=== PATIENT | female | born 1935 | race Caucasian/White ===

== ENCOUNTER → 2016-05-31 | Outpatient (CLI) | payer OTHER, BC ==
[~2016-05-31] MED LIST: AMOX875T PO; ASPI81TA28 PO; CALC600T9 PO; CETI10TA84 PO; CLON1TAB3 PO; HYDR25TA4 PO; LOSA100T65 PO; LOVA40TA4 PO; NXM/40 PO; OMEG10007 PO; ONDA4TAB10 SL; SYN112 PO
[2016-05-31 12:21] LABS: BASO ABS # 0.06 K/uL (0-0.2); COMPLETE YES; EOS % 1.7 %; HEMATOCRIT 41.2 % (37-47); IG% 0.2 %; LYMPH % 37.5 %; LYMPH ABS # 2.27 K/uL (1.2-3.4); MEAN CORPUSCULAR HEMOGLOBIN 30.3 pg (25-34); MEAN CORPUSCULAR HGB CONC 34.5 g/dl (32-36); MEAN PLATELET VOLUME 10.4 fL (7.4-10.4); MONO % 9.9 %; NEUT % 49.7 %; PLATELET COUNT 185 K/uL (130-400); RED BLOOD COUNT 4.68 M/uL (4.2-5.4); WHITE BLOOD COUNT 6.05 K/uL (4.8-10.8)
[2016-05-31 12:25] LABS: URINE APPEARANCE CLEAR (CLEAR); URINE BILIRUBIN NEG (NEG); URINE COLOR YELLOW; URINE NITRITE NEG (NEG); URINE SPECIFIC GRAVITY 1.005 (1.000-1.030); UROBILINOGEN NEG (NEG); ZZUR CULT IF INDIC CLEAN CATCH YES
[2016-05-31 12:49] LABS: MANUAL MICROSCOPIC REQUIRED? NO; REVIEW REQ? NO
[2016-05-31 12:51] LABS: ALT/SGPT 34 U/L (12-78); AST/SGOT 15 U/L (15-37); BLOOD UREA NITROGEN 15 mg/dl (7-18); BUN/CREATININE RATIO 16.4 (10-20); CALCIUM 9.4 mg/dl (8.5-10.1); CARBON DIOXIDE 32 mmol/L (21-32); CHLORIDE 106 mmol/L (98-107); CREATININE 0.93 mg/dl (0.60-1.20); GLUCOSE 92 mg/dl (70-99); POTASSIUM 4.6 mmol/L (3.5-5.1); SODIUM 143 mmol/L (136-145)
[2016-05-31 13:02] LABS: ALB/GLOB RATIO 1.2 (0.9-2); ALKALINE PHOSPHATASE 60 U/L (45-117); CHOLESTEROL 166 mg/dl (0-200); CHOLESTEROL/HDL RATIO 3.1; HDL CHOLESTEROL 54 mg/dl; LDL CHOLESTEROL CALCULATED 80 mg/dl; THYROID STIMULATING HORMONE 0.948 uIu/ml (0.300-4.500); TRIGLYCERIDES 162 mg/dl (0-150); VERY LOW DENSITY LIPOPROT CALC 32 mg/dl
== END | disposition home or self-care (01) ==
LOC: C.LAB 11:18
PROVIDERS: ATTEND Internal Medicine Geriatric Medicine
DX: I10 Essential (primary) hypertension (principal); E78.5 Hyperlipidemia, unspecified; N95.2 Postmenopausal atrophic vaginitis; M19.90 Unspecified osteoarthritis, unspecified site; E03.9 Hypothyroidism, unspecified; F41.8 Other specified anxiety disorders; R33.9 Retention of urine, unspecified; K76.0 Fatty (change of) liver, not elsewhere classified; R10.9 Unspecified abdominal pain

== ENCOUNTER → 2016-09-04 | Outpatient (CLI) | payer OTHER, BC ==
[~2016-09-04] MED LIST changes: -ONDA4TAB10 SL
[2016-09-04 17:36] LABS: BASO % 0.6 %; BASO ABS # 0.05 K/uL (0-0.2); COMPLETE YES; EOS % 1.4 %; HEMATOCRIT 42.5 % (37-47); IG% 0.1 %; LYMPH % 29.9 %; MEAN CELL VOLUME 88.5 fL (80-100); MEAN CORPUSCULAR HEMOGLOBIN 30.8 pg (25-34); MEAN CORPUSCULAR HGB CONC 34.8 g/dl (32-36); MEAN PLATELET VOLUME 10.2 fL (7.4-10.4); MONO % 9.1 %; NEUT % 58.9 %; PLATELET COUNT 190 K/uL (130-400); WHITE BLOOD COUNT 8.04 K/uL (4.8-10.8)
[2016-09-04 19:17] LABS: BLOOD UREA NITROGEN 15 mg/dl (7-18); BUN/CREATININE RATIO 18.4 (10-20); CALCIUM 9.7 mg/dl (8.5-10.1); CARBON DIOXIDE 30 mmol/L (21-32); CHLORIDE 105 mmol/L (98-107); CREATININE 0.82 mg/dl (0.60-1.20); GLUCOSE 79 mg/dl (70-99); POTASSIUM 4.3 mmol/L (3.5-5.1); SODIUM 142 mmol/L (136-145)
== END | disposition home or self-care (01) ==
LOC: C.LAB1850 16:29
PROVIDERS: ATTEND Physician Assistant
DX: R06.02 Shortness of breath (principal)

== ENCOUNTER → 2016-09-04 | Outpatient (CLI) | payer OTHER, BC ==
--- NOTE | 2016-09-04 16:04 | DIAGNOSTIC IMAGING REPORT ---
TWO VIEW CHEST CLINICAL HISTORY: Dyspnea on exertion. FINDINGS: PA and lateral chest radiographs are compared to study dated 12/07/2015. The cardiomediastinal silhouette is unremarkable. There is atherosclerotic calcification of the thoracic aorta. Chronic interstitial thickening is unchanged. The lungs and pleural spaces are clear. There is no pneumothorax. The skeletal structures are osteopenic. Degenerative changes noted throughout the thoracic spine. Cholecystectomy clips are identified in the right upper quadrant. IMPRESSION: No active disease in the chest. Electronically signed by: Meet Zhang M.D. 09/04/2016 4:02 PM Dictated Date/Time: 09/04/2016 4:01 PM
== END | disposition home or self-care (01) ==
LOC: C.RADBC 15:42
PROVIDERS: ATTEND Internal Medicine Geriatric Medicine
DX: R06.02 Shortness of breath (principal)

== ENCOUNTER → 2016-09-21 | Outpatient (CLI) | payer OTHER, BC ==
--- NOTE | 2016-09-21 14:50 | DIAGNOSTIC IMAGING REPORT ---
LEFT KNEE 1 OR 2 VIEWS ROUTINE, RIGHT KNEE 1 OR 2 VIEWS ROUTINE CLINICAL HISTORY: Fall, accidental. Bilateral knee pain. COMPARISON STUDY: None. FINDINGS: There is a right total knee arthroplasty. No fracture or dislocation within the right or left knee. Moderate osteoarthritis within the medial compartment of the left knee. Trace bilateral knee effusions. Also moderate left patellofemoral osteoarthritis. IMPRESSION: 1. No acute fracture or dislocation within the right or left knee. 2. Trace bilateral knee effusions. 3. Moderate left knee osteoarthritis. Electronically signed by: Roc Vizcarra M.D. 09/21/2016 2:49 PM Dictated Date/Time: 09/21/2016 2:47 PM
--- NOTE | 2016-09-21 15:05 | DIAGNOSTIC IMAGING REPORT ---
LUMBAR SPINE 5 VIEWS HISTORY: Pain PAIN COMPARISON: None. FINDINGS: There is no fracture. Grade 2 anterolisthesis of L3 on L4. Maximum anterolisthesis is made of 1 cm. Mild/moderate degenerative disc changes throughout. Findings of posterior laminectomy and fusion at L4-L5. IMPRESSION: Degenerative and postoperative change. No acute process. Grade 2 anterolisthesis of L3 on L4 Electronically signed by: Jeffy Bernal M.D. 09/21/2016 3:03 PM Dictated Date/Time: 09/21/2016 2:45 PM
--- NOTE | 2016-09-25 07:48 | CODING QUERY NO DIAGNOSIS ---
TREATMENT RENDERED WITHOUT A DIAGNOSIS To promote full compliance with coding requirements relating to patient care, physician participation is requested in all cases of remote medical coder uncertainty. Please assist us with providing a diagnosis/symptom for the test(s) below: A diagnosis/symptom was not documented on your Order. A valid diagnosis/symptom is required to bill all insurances. Please remember that we are unable to code a diagnosis of rule out, probable, possible, questionable, or suspected. Tests that require a diagnosis: * L-SPINE MIN 4 VIEWS DIAGNOSIS: * KNEE 1 OR 2 VIEWS DIAGNOSIS: Provider Signature: Date: Thank you Viridiana Degroot [employer] Information Management Once completed, please kindly fax back to [phone] For questions please call [phone]
== END | disposition home or self-care (01) ==
LOC: C.RADBC 14:07
PROVIDERS: ATTEND Physician Assistant Medical
DX: M53.86 Other specified dorsopathies, lumbar region (principal); M17.12 Unilateral primary osteoarthritis, left knee; T14.8 Other injury of unspecified body region; W19.XXXA Unspecified fall, initial encounter

== ENCOUNTER → 2016-10-13 | Outpatient (CLI) | payer OTHER, BC ==
--- NOTE | 2016-10-13 12:45 | DIAGNOSTIC IMAGING REPORT ---
CT OF THE CHEST WITHOUT IV CONTRAST CLINICAL HISTORY: Multiple pulmonary nodules. COMPARISON STUDY: Chest radiograph September 04, 2016. CT DOSE: 729.46 mGycm TECHNIQUE: Axial images of the chest were obtained without IV contrast. Images were reviewed in the axial, sagittal, and coronal planes. IV contrast was not administered for this examination. FINDINGS: No enlarged axillary, mediastinal or hilar lymph nodes are present. The size of the heart is normal. There is no pneumothorax or pleural effusion. Central airways are patent. No consolidation to suggest pneumonia. A few tiny subpleural nodules within the lower lungs are unchanged since abdominal CT of April 22, 2013. These are benign. Several calcified nodules are benign. A few noncalcified nodules are noted, including a 6 mm left upper lobe nodule shown on image 50 of 322 and a 5 mm right middle lobe nodule shown image 117 of 322. The bony thorax is unremarkable. A cyst arising from the upper pole of the left kidney is unchanged. The gallbladder is surgically absent. IMPRESSION: 1. A few noncalcified pulmonary nodules measuring up to 6 mm. These are likely benign but a follow-up chest CT in 6 months to ensure stability is recommended. 2. No thoracic lymphadenopathy. 3. No acute intrathoracic findings. Electronically signed by: Gibson Vidales M.D. 10/13/2016 12:44 PM Dictated Date/Time: 10/13/2016 12:32 PM
== END | disposition home or self-care (01) ==
LOC: C.CTS 12:10
PROVIDERS: ATTEND Internal Medicine Geriatric Medicine
DX: R91.8 Other nonspecific abnormal finding of lung field (principal)

== ENCOUNTER 2017-01-16 15:44 | Inpatient (IN) | payer OTHER, BC ==
[~2017-01-16] VITALS: Ht 162.6 cm; Wt 109.2 kg
[~2017-01-16 15:44] MED LIST changes: -AMOX875T PO
[2017-01-16] MEDS ORDERED: SODIUM CHLORIDE 0.9% 1000ML 1,000 ML IV STA (16:45)
[2017-01-16] MEDS ORDERED: ONDANSETRON INJ 2 MG/ML 2 ML VIAL IV STA (16:45)
[2017-01-16 17:58] LABS: BASO % 0.3 %; BASO ABS # 0.03 K/uL (0-0.2); COMPLETE YES; EOS % 0.8 %; HEMATOCRIT 36.6 % (37-47); IG% 0.3 %; LYMPH ABS # 1.98 K/uL (1.2-3.4); MEAN CELL VOLUME 87.8 fL (80-100); MEAN CORPUSCULAR HEMOGLOBIN 30.5 pg (25-34); MEAN CORPUSCULAR HGB CONC 34.7 g/dl (32-36); MEAN PLATELET VOLUME 10.5 fL (7.4-10.4); NEUT % 71.6 %; PLATELET COUNT 159 K/uL (130-400); RED BLOOD COUNT 4.17 M/uL (4.2-5.4)
--- NOTE | 2017-01-16 18:03 | DIAGNOSTIC IMAGING REPORT ---
ABD/PELVIS NO IV OR ORAL CONT HISTORY: 81 years-old Female left sided pain acute left-sided abdominal pain. Initial exam. COMPARISON: CT abdomen and pelvis 04/22/2013. TECHNIQUE: Multiple axial CT images of the abdomen and pelvis were obtained without contrast. A dose lowering technique was used consistent with the principals of JANELL. FINDINGS: Lung bases are generally clear with the exception of a pleural-based 4 mm noncalcified nodular density of the basal right lower lobe seen on image 72, unchanged from 04/22/2013 compatible with benign etiology. The inferior cardiac chambers are unremarkable. There is diffuse fatty infiltration of the liver. Prior cholecystectomy. The spleen, pancreas and adrenal glands are within normal limits. Mildly complex cyst of the superior pole left kidney is seen with layering calcification noted dependently overall measuring up to 2.2 cm. Kidneys are otherwise within normal limits. Ureters and urinary bladder are unremarkable. Prior hysterectomy. Moderate atherosclerotic plaquing involves the abdominal aorta. There is no bulky retroperitoneal adenopathy identified. No focal dilation of small bowel. Extensive sigmoid colonic diverticulosis is noted. There is moderate wall thickening of the distal aspect descending colon with moderate surrounding inflammatory stranding surrounding inflamed diverticula. Several foci of extraluminal air noted medially within the adjacent mesentery compatible with microperforation as seen on image 265. No abscess formation identified at this time. The appendix is not identified. No secondary evidence of acute appendicitis. Soft tissues are unremarkable. Bones appear intact. Prior posterior decompression with interbody angel and screw fusion at L4-L5. There is 5 mm anterolisthesis of L3 on L4, likely on a degenerative basis. IMPRESSION: 1. Acute diverticulitis of the distal descending colon with microperforation. No associated abscess formation at this time. Extensive colonic diverticulosis is also noted throughout the sigmoid colon. 2. Fatty infiltration of the liver. 3. Cholecystectomy. 4. 4 mm noncalcified pulmonary nodule of the right lower lobe is unchanged dating back to at least 04/22/2013 compatible with benign etiology. The above report was generated using voice recognition software. It may contain grammatical, syntax or spelling errors. Electronically signed by: Edmundo Thomason M.D. 01/16/2017 6:02 PM Dictated Date/Time: 01/16/2017 5:54 PM
[2017-01-16 18:07] LABS: BUN/CREATININE RATIO 19.2 (10-20); CALCIUM 9.3 mg/dl (8.5-10.1); CREATININE 1.1 mg/dl (0.60-1.20); POTASSIUM 3.1 mmol/L (3.5-5.1)
[2017-01-16] MEDS ORDERED: AMPICILLIN/SULBACTAM SOD INJ 3,000 MG in SODIUM CHLORIDE 0.9% 100ML 100 ML IV ONE (18:15)
--- NOTE | 2017-01-16 18:28 | EMERGENCY ROOM VISIT NOTE ---
History Report prepared by Lalita: Harvey Ledbetter Under the Supervision of: Dr. Boris Rogers D.O. First contact with patient: 16:39 Chief Complaint: ABDOMINAL PAIN Stated Complaint: FEVER, DIARRHEA, LT SIDE PAIN Nursing Triage Summary: Pt states Sun in the middle of the night, developed a fever. Nausea yesterday. Diarrhea this morning. Left sided abd pain that started yesterday. Hx of diverticulitis. Denies urinary s/sx at present, hx of UTI's. History of Present Illness The patient is a 81 year old female who presents to the Emergency Room with complaints of persistent left sided abdominal pain beginning yesterday. She also complains of a resolved subjective fever and diarrhea. Her diarrhea began this morning. The patient was referred to the ED by her PCP. She denies any rashes, urinary symptoms, chest pain, or SOB. She has a history of diverticulitis, but states that her current pain feels different. The patient notes that she self catheterizes twice a day. Source of History: patient Onset: Yesterday Position: abdomen (left side) Timing: other (persistent) Associated Symptoms: + fevers (resolved, subjective), + diarrhea (this morning), No chest pain, No SOB, No urinary symptoms, No rash Review of Systems See HPI for pertinent positives & negatives. A total of 10 systems reviewed and were otherwise negative. Past Medical & Surgical Medical Problems: (1) GERD (gastroesophageal reflux disease) (2) HTN (hypertension) (3) Hyperlipemia (4) UTI (urinary tract infection) Surgical Problems: (1) H/O colonoscopy (2) H/O: hysterectomy Family History Cancer Gallbladder disease Hypertension Social History Smoking Status: Never Smoker Alcohol Use: none Drug Use: none Marital Status: Housing Status: lives alone Occupation Status: retired Current/Historical Medications Scheduled Aspirin (Aspirin Ec), 81 MG PO DAILY Calcium Carbonate-Vitamin D (Calcium + D), 1 TAB PO DAILY Esomeprazole Magnesium (Nexium), 40 MG PO DAILY Fish Oil ([place]-3), 1,000 MG PO DAILY Hydrochlorothiazide (Hctz), 25 MG PO DAILY Levothyroxine (Synthroid *), 0.112 MG PO DAILY Losartan Potassium (Cozaar), 1 TAB PO DAILY Lovastatin (Mevacor), 40 MG PO DAILY Scheduled PRN Cetirizine (Zyrtec), 10 MG PO DAILY PRN for PRN Clonazepam (Klonopin), 1 MG PO BID PRN for Anxiety Allergies Coded Allergies: Iodinated Diagnostic Agents (Verified Allergy, Severe, HIVES, 01/16/17) Ciprofloxacin (Verified Allergy, Unknown, SOB/RASH, 01/16/17) Niacin (Verified Allergy, Unknown, UNK, 01/16/17) Sulfa Antibiotics (Verified Allergy, Unknown, SOB/RASH, 01/16/17) Uncoded Allergies: IODINE CRYSTALS (Allergy, Unknown, UNKNOWN, 12/11/14) Physical Exam Vital Signs Date Time Temp Pulse Resp B/P (MAP) Pulse Ox O2 Delivery O2 Flow Rate FiO2 01/16/17 18:31 60 01/16/17 15:49 36.9 73 16 117/70 93 Room Air Physical Exam GENERAL: Patient is awake, alert, and in no acute distress. Patient is resting comfortably and showing no signs of anxiety EYES: The conjunctivae are clear. The pupils are round and reactive. EARS, NOSE, MOUTH AND THROAT: The nose is without any evidence of any deformity. Mucous membranes are moist tongue is midline NECK: The neck is nontender and supple. RESPIRATORY: Normal respiratory effort is noted there is no evidence of wheezing rhonchi or rales CARDIOVASCULAR: Regular rate and rhythm noted there no murmurs rubs or gallops normal S1 normal S2 GASTROINTESTINAL: The abdomen is soft. Bowel sounds are present in all quadrants. Abdomen is distended with significant tenderness in the LLQ. Guarding in the LLQ noted. BACK: No midline tenderness or or step-off noted range of motion in flexion extension as well as rotation no signs of muscle spasm noted MUSCULOSKELETAL/EXTREMITIES: There is no evidence of gross deformity full range of motion is noted in the hips and shoulders SKIN: There is no obvious evidence of any rash. There are no petechiae, pallor or cyanosis noted. NEUROLOGIC: Patient is awake alert and oriented x3. Medical Decision & Procedures ER Provider Diagnostic Interpretation: CT results as stated below per my review and radiologist interpretation. ABD/PELVIS NO IV OR ORAL CONT FINDINGS: Lung bases are generally clear with the exception of a pleural-based 4 mm noncalcified nodular density of the basal right lower lobe seen on image 72, unchanged from 04/22/2013 compatible with benign etiology. The inferior cardiac chambers are unremarkable. There is diffuse fatty infiltration of the liver. Prior cholecystectomy. The spleen, pancreas and adrenal glands are within normal limits. Mildly complex cyst of the superior pole left kidney is seen with layering calcification noted dependently overall measuring up to 2.2 cm. Kidneys are otherwise within normal limits. Ureters and urinary bladder are unremarkable. Prior hysterectomy. Moderate atherosclerotic plaquing involves the abdominal aorta. There is no bulky retroperitoneal adenopathy identified. No focal dilation of small bowel. Extensive sigmoid colonic diverticulosis is noted. There is moderate wall thickening of the distal aspect descending colon with moderate surrounding inflammatory stranding surrounding inflamed diverticula. Several foci of extraluminal air noted medially within the adjacent mesentery compatible with microperforation as seen on image 265. No abscess formation identified at this time. The appendix is not identified. No secondary evidence of acute appendicitis. Soft tissues are unremarkable. Bones appear intact. Prior posterior decompression with interbody angel and screw fusion at L4-L5. There is 5 mm anterolisthesis of L3 on L4, likely on a degenerative basis. IMPRESSION: 1. Acute diverticulitis of the distal descending colon with microperforation. No associated abscess formation at this time. Extensive colonic diverticulosis is also noted throughout the sigmoid colon. 2. Fatty infiltration of the liver. 3. Cholecystectomy. 4. 4 mm noncalcified pulmonary nodule of the right lower lobe is unchanged dating back to at least 04/22/2013 compatible with benign etiology. The above report was generated using voice recognition software. It may contain grammatical, syntax or spelling errors. Electronically signed by: Edmundo Thomason M.D. 01/16/2017 6:02 PM Laboratory Results Test 01/16/17 00:00 01/16/17 17:40 Urine Color YELLOW Urine Appearance CLEAR (CLEAR) Urine pH 6.0 (4.5-7.5) Urine Specific [place] 1.014 (1.000-1.030) Urine Protein NEG (NEG) Urine Glucose (UA) NEG (NEG) Urine Ketones NEG (NEG) Urine Occult Blood NEG (NEG) Urine Nitrite NEG (NEG) Urine Bilirubin NEG (NEG) Urine Urobilinogen NEG (NEG) Urine Leukocyte Esterase SMALL (NEG) Urine WBC (Auto) 5-10 /hpf (0-5) Urine RBC (Auto) 0-4 /hpf (0-4) Urine Hyaline Casts (Auto) 0 /lpf (0-5) Urine Epithelial Cells (Auto) 5-10 /lpf (0-5) Urine Bacteria (Auto) NEG (NEG) Immature Granulocyte % (Auto) 0.3 % White Blood Count 11.00 K/uL (4.8-10.8) Red Blood Count 4.17 M/uL (4.2-5.4) Hemoglobin 12.7 g/dL (12.0-16.0) Hematocrit 36.6 % (37-47) Mean Corpuscular Volume 87.8 fL (80-100) Mean Corpuscular Hemoglobin 30.5 pg (25-34) Mean Corpuscular Hemoglobin Concent 34.7 g/dl (32-36) Platelet Count 159 K/uL (130-400) Mean Platelet Volume 10.5 fL (7.4-10.4) Neutrophils (%) (Auto) 71.6 % Lymphocytes (%) (Auto) 18.0 % Monocytes (%) (Auto) 9.0 % Eosinophils (%) (Auto) 0.8 % Basophils (%) (Auto) 0.3 % Neutrophils # (Auto) 7.88 K/uL (1.4-6.5) Lymphocytes # (Auto) 1.98 K/uL (1.2-3.4) Monocytes # (Auto) 0.99 K/uL (0.11-0.59) Eosinophils # (Auto) 0.09 K/uL (0-0.5) Basophils # (Auto) 0.03 K/uL (0-0.2) Immature Granulocyte # (Auto) 0.03 K/uL (0.00-0.02) Prothrombin Time 11.4 SECONDS (9.0-12.0) Prothromb Time International Ratio 1.1 (0.9-1.1) Total Bilirubin 1.0 mg/dl (0.2-1) Direct Bilirubin 0.3 mg/dl (0-0.2) Aspartate Amino Transf (AST/SGOT) 16 U/L (15-37) Alanine Aminotransferase (ALT/SGPT) 25 U/L (12-78) Alkaline Phosphatase 61 U/L (45-117) Total Protein 6.6 gm/dl (6.4-8.2) Albumin 3.0 gm/dl (3.4-5.0) Lipase 98 U/L (73-393) Laboratory results per my review. Medications Administered Medications (Trade) Dose Ordered Sig/Jonathan Route Start Time Stop Time Status Last Admin Dose Admin Sodium Chloride 1,000 ml @ 999 mls/hr Q1H1M STAT IV 01/16/17 16:45 01/16/17 17:45 DC 01/16/17 17:37 999 MLS/HR Ondansetron HCl (Zofran Inj) 4 mg NOW STAT IV 01/16/17 16:45 01/16/17 16:46 DC 01/16/17 17:37 4 MG Ampicillin Sodium/ Sulbactam Sodium 3000 mg/Sodium Chloride 108 ml @ 200 mls/hr ONE ONCE IV 01/16/17 18:15 01/16/17 18:47 DC 01/16/17 18:15 200 MLS/HR Acetaminophen (Tylenol Tab) 650 mg Q4H PRN PO 01/16/17 19:00 02/15/17 18:59 01/17/17 01:31 650 MG ED Course 1641: The patient was evaluated in room C11B. A complete history and physical examination were performed. 1645: Ordered Zofran Inj 4 mg IV, NSS 1,000 ml @ 999 mls/hr IV. 1815: Ordered Ampicillin Sodium/Sulbactam Sodium 3000 mg/NSS 108 mL @ 200 mls/ hr IV. 1830: Upon reevaluation, the patient is resting comfortably. I discussed results and treatment plan with her. She verbalizes agreement and understanding. I spoke with Dr. Naqvi of the [facility]. The patient will be evaluated for further management and care. Medical Decision Differential diagnosis: Etiologies such as appendicitis, diverticulitis, PUD, biliary pathology, UTI, pancreatitis, obstruction, mesenteric ischemia, aortic pathology, infections, inflammatory bowel disease, renal colic, as well as others were entertained. Nursing notes reviewed. The patient is an 81-year-old female who presented to emergency department for an evaluation of left-sided abdominal pain. The patient reports a fever which was subjective as an outpatient. The patient was treated with IV fluids and IV antibiotic. I discussed the patient's laboratory and radiographic studies with her. On subsequent reevaluation she was feeling significantly improved. CT did reveal signs of diverticulitis with some microperforation. For this reason I discussed her case with the on-call [facility] hospitalist. They've agreed to evaluate patient in the emergency department for further management and disposition. Medication Reconcilliation Current Medication List: was personally reviewed by me Blood Pressure Screening Patient's blood pressure: Normal blood pressure Blood pressure disposition: Did not require urgent referral Consults Time Called: 1814 Consulting Physician: Dr. Naqvi -[facility] Returned Call: 1829 I discussed the patient's case with Dr. Naqvi. The patient will be evaluated for further management. Additional Consults: Time Called: 1829 Consulted Physician: Dr. Shi -General Surgery Returned Call: 1834 Additional Comments: I discussed the patient's case with Dr. Shi. He will consult on the patient. Impression Primary Impression: Diverticulitis of intestine with perforation Scribe Attestation The scribe's documentation has been prepared under my direction and personally reviewed by me in its entirety. I confirm that the note above accurately reflects all work, treatment, procedures, and medical decision making performed by me. Departure Information Dispostion Being Evaluated By Hospitalist Referrals No Doctor, Assigned (PCP) Patient Instructions My [facility] Health Problem Qualifiers Primary Impression: Diverticulitis of intestine with perforation Diverticulitis site: large intestine Diverticulitis bleeding: unspecified bleeding status Qualified Codes: K57.20 - Diverticulitis of large intestine with perforation and abscess without bleeding
[2017-01-16] MEDS ORDERED: ONDANSETRON INJ 2 MG/ML 2 ML VIAL IV PRN (19:00)
[2017-01-16] MEDS ORDERED: POLYETHYLENE (MIRALAX) 17 GM PACK PO PRN (19:00)
[2017-01-16] MEDS ORDERED: ALUMINUM/MAGNESIUM/SIMETH (MAALOX MAX) 30 ML UDC PO PRN (19:00)
[2017-01-16] MEDS ORDERED: MAGNESIUM HYDROXIDE SUSP 30 ML UDC PO PRN (19:00)
[2017-01-16] MEDS ORDERED: CLONAZEPAM 1 MG TAB PO PRN (19:00)
[2017-01-16] MEDS ORDERED: CETIRIZINE HCL 10 MG TAB PO PRN (19:00)
[2017-01-16] MEDS ORDERED: MoRPHine SULFATE 2 MG/ML CARP IV PRN (19:15)
--- NOTE | 2017-01-16 19:17 | History and Physical ---
History & Physical Date & Time of Service: Jan 16, 2017 at 19:00 Chief Complaint: Fever, Diarrhea, Lt Side Pain Primary Care Physician: Sergei Patricia M.D. History of Present Illness Source: patient, family (at bedside ), clinic records, hospital records Patient is a pleasant 81 y/o female, with PMHx of HTN, hypothyroidism, hyperlipidemia, GERD, anxiety/depression, and diverticular disease, who presented to the ED because of worsening LLQ pain since 01/14. Per patient, she has been eating/drinking very little due to discomfort. Diarrhea started this AM. She denies similar symptoms in the past or h/o acute diverticulitis. Per records, her last colonoscopy was in [address] Ruiz- polyps and diverticular disease to sigmoid colon. +fever/chills. Patient denies any sweats , lightheadedness, dizziness, vision changes, CP, palpitations, edema, SOB, wheezing, cough, ,nausea, vomiting, urinary symptoms, melena, numbness/tingling , weakness, muscle/joint pain, anxiety/depression, active bleeding, or new skin discoloration/changes. Past Medical/Surgical History Medical Problems: HTN hypothyroidism hyperlipidemia GERD anxiety/depression diverticular disease of sigmoid colon Surgical Problems: colonoscopy hysterectomy back surgery R knee surgery Family History Cancer Gallbladder disease Hypertension Social History Smoking Status: Never Smoker Drug Use: none Marital Status: Housing status: lives with family Occupational Status: retired Immunizations History of Influenza Vaccine: Yes History of Tetanus Vaccine?: Yes History of Pneumococcal: Yes History of Hepatitis B Vaccine: No Multi-Drug Resistant Organisms History of MDRO: No Allergies Coded Allergies: Iodinated Diagnostic Agents (Verified Allergy, Severe, HIVES, 01/16/17) Sulfa Drugs (Verified Allergy, Intermediate, SOB/RASH, 01/16/17) Ciprofloxacin (Verified Allergy, Unknown, SOB/RASH, 01/16/17) Niacin (Verified Allergy, Unknown, UNK, 01/16/17) Uncoded Allergies: IODINE CRYSTALS (Allergy, Unknown, UNKNOWN, 12/11/14) Home Medications Scheduled Aspirin (Aspirin Ec), 81 MG PO DAILY Calcium Carbonate-Vitamin D (Calcium + D), 1 TAB PO DAILY Esomeprazole Magnesium (Nexium), 40 MG PO DAILY Fish Oil ([place]-3), 1,000 MG PO DAILY Hydrochlorothiazide (Hctz), 25 MG PO DAILY Levothyroxine (Synthroid *), 0.112 MG PO DAILY Losartan Potassium (Cozaar), 1 TAB PO DAILY Lovastatin (Mevacor), 40 MG PO DAILY Scheduled PRN Cetirizine (Zyrtec), 10 MG PO DAILY PRN for PRN Clonazepam (Klonopin), 1 MG PO BID PRN for Anxiety Physical Exam Vital Signs Date Time Temp Pulse Resp B/P (MAP) Pulse Ox O2 Delivery O2 Flow Rate FiO2 01/16/17 18:31 60 01/16/17 15:49 36.9 73 16 117/70 93 Room Air General Appearance: no apparent distress, + obese Head: normocephalic, atraumatic Eyes: normal inspection, PERRL ENT: hearing grossly normal Neck: supple Respiratory/Chest: lungs clear, no respiratory distress, no accessory muscle use Cardiovascular: regular rate, rhythm Abdomen/GI: normal bowel sounds, soft, + tenderness (Mild LLQ ttp ) Back: normal inspection Extremities/Musculoskelatal: no calf tenderness, no pedal edema Neurologic/Psych: alert, normal mood/affect, oriented x 3 Skin: normal color, warm/dry, no rash Diagnostics Laboratory Results Results Past 24 Hours Test 01/16/17 17:40 Range/Units White Blood Count 11.00 4.8-10.8 K/uL Red Blood Count 4.17 4.2-5.4 M/uL Hemoglobin 12.7 12.0-16.0 g/dL Hematocrit 36.6 37-47 % Mean Corpuscular Volume 87.8 80-100 fL Mean Corpuscular Hemoglobin 30.5 25-34 pg Mean Corpuscular Hemoglobin Concent 34.7 32-36 g/dl Platelet Count 159 130-400 K/uL Mean Platelet Volume 10.5 7.4-10.4 fL Neutrophils (%) (Auto) 71.6 % Lymphocytes (%) (Auto) 18.0 % Monocytes (%) (Auto) 9.0 % Eosinophils (%) (Auto) 0.8 % Basophils (%) (Auto) 0.3 % Neutrophils # (Auto) 7.88 1.4-6.5 K/uL Lymphocytes # (Auto) 1.98 1.2-3.4 K/uL Monocytes # (Auto) 0.99 0.11-0.59 K/uL Eosinophils # (Auto) 0.09 0-0.5 K/uL Basophils # (Auto) 0.03 0-0.2 K/uL RDW Standard Deviation 43.2 36.4-46.3 fL RDW Coefficient of Variation 13.5 11.5-14.5 % Immature Granulocyte % (Auto) 0.3 % Immature Granulocyte # (Auto) 0.03 0.00-0.02 K/uL Sodium Level 135 136-145 mmol/L Potassium Level 3.1 3.5-5.1 mmol/L Chloride Level 100 98-107 mmol/L Carbon Dioxide Level 31 21-32 mmol/L Anion Gap 4.0 3-11 mmol/L Blood Urea Nitrogen 21 7-18 mg/dl Creatinine 1.10 0.60-1.20 mg/dl Est Creatinine Clear Calc Drug Dose 46.8 ml/min Estimated GFR () 53.8 Estimated GFR (Non- 46.4 BUN/Creatinine Ratio 19.2 10-20 Random Glucose 87 70-99 mg/dl Calcium Level 9.3 8.5-10.1 mg/dl Total Bilirubin 1.0 0.2-1 mg/dl Direct Bilirubin 0.3 0-0.2 mg/dl Aspartate Amino Transf (AST/SGOT) 16 15-37 U/L Alanine Aminotransferase (ALT/SGPT) 25 12-78 U/L Alkaline Phosphatase 61 45-117 U/L Total Protein 6.6 6.4-8.2 gm/dl Albumin 3.0 3.4-5.0 gm/dl Lipase 98 73-393 U/L Diagnostic Radiology ABD/PELVIS NO IV OR ORAL CONT HISTORY: 81 years-old Female left sided pain acute left-sided abdominal pain. Initial exam. COMPARISON: CT abdomen and pelvis 04/22/2013. TECHNIQUE: Multiple axial CT images of the abdomen and pelvis were obtained without contrast. A dose lowering technique was used consistent with the principals of ALARA. FINDINGS: Lung bases are generally clear with the exception of a pleural-based 4 mm noncalcified nodular density of the basal right lower lobe seen on image 72, unchanged from 04/22/2013 compatible with benign etiology. The inferior cardiac chambers are unremarkable. There is diffuse fatty infiltration of the liver. Prior cholecystectomy. The spleen, pancreas and adrenal glands are within normal limits. Mildly complex cyst of the superior pole left kidney is seen with layering calcification noted dependently overall measuring up to 2.2 cm. Kidneys are otherwise within normal limits. Ureters and urinary bladder are unremarkable. Prior hysterectomy. Moderate atherosclerotic plaquing involves the abdominal aorta. There is no bulky retroperitoneal adenopathy identified. No focal dilation of small bowel. Extensive sigmoid colonic diverticulosis is noted. There is moderate wall thickening of the distal aspect descending colon with moderate surrounding inflammatory stranding surrounding inflamed diverticula. Several foci of extraluminal air noted medially within the adjacent mesentery compatible with microperforation as seen on image 265. No abscess formation identified at this time. The appendix is not identified. No secondary evidence of acute appendicitis. Soft tissues are unremarkable. Bones appear intact. Prior posterior decompression with interbody angel and screw fusion at L4-L5. There is 5 mm anterolisthesis of L3 on L4, likely on a degenerative basis. IMPRESSION: 1. Acute diverticulitis of the distal descending colon with microperforation. No associated abscess formation at this time. Extensive colonic diverticulosis is also noted throughout the sigmoid colon. 2. Fatty infiltration of the liver. 3. Cholecystectomy. 4. 4 mm noncalcified pulmonary nodule of the right lower lobe is unchanged dating back to at least 04/22/2013 compatible with benign etiology. The above report was generated using voice recognition software. It may contain grammatical, syntax or spelling errors. Electronically signed by: Edmundo Thomason M.D. 01/16/2017 6:02 PM Dictated Date/Time: 01/16/2017 5:54 PM The status of this report is Signed. Draft = Not yet reviewed or approved by Radiologist. Signed = Reviewed and approved by Radiologist. Impression Assessment and Plan Patient is a pleasant 81 y/o female, with PMHx of HTN, hypothyroidism, hyperlipidemia, GERD, anxiety/depression, and diverticular disease, who presented to the ED because of worsening LLQ pain since 01/14. Acute diverticulitis w/ microperforation: - Admit to med/surg - IV Zosyn - IV NSS + 20 mEq KCL @ 125 ml/hr - IV Morphine 1 mg q3 hrs PRN severe pain - NPO except ice chips/meds - Consult general surgery, appreciate recommendations Leukocytosis, secondary to diverticulitis: - IV antibiotics as above - Follow CBC Hypokalemia/hyponatremia, likely secondary to dehydration/diarrhea: - IVF as above - Hold HCTZ - Repeat PRP tomorrow AM HTN: - Continue Losartan 100 mg daily - Hold HCTZ 25 mg daily due to hypokalemia Hypothyroidism: Continue Synthroid 0.112 mcg daily Hyperlipidemia: Continue Lovastatin 40 mg daily and Fish Oil GERD: Protonix 40 mg daily- resume Nexium at discharge Anxiety/depression: Klonopin 1 mg BID PRN DVT prophylaxis: Heparin SQ BID Code Status: LEVEL I, FULL Dispo: From home, lives w/ family- no discharge needs anticipated Resident Physician Supervision Note: I was present with MURTAZA Burton during the history and exam. I discussed the case with the resident and agree with the findings and plan as documented in the note. Any exceptions or clarifications are listed here: 81 y/o F Hx hypothyroid, HTN, obese - presenting with abdominal pain - may have had a fever - subsequently diagnosed with diverticulitis and likely microperf OE AAO x 3 S1,2 R CTAB Minimally tender in lower quadrants No CCE P: Provided with IV Zosyn Fluid resuscitation and electrolyte replacement owing to mild hypoNa , hypoK on initial labs Cont home meds as tolerated - HCTZ held Documented By: Conrado Naqvi Level of Care Med/Surg Resuscitation Status FULL RESUSCITATION VTE Prophylaxis VTE Risk Assessment Done? Y/N: Yes Risk Level: Moderate Given or contraindicated: T.E.D. Stockings, SCD's
--- NOTE | 2017-01-16 19:22 | Surgery Consultation ---
Consultation Date of Consultation: Jan 16, 2017. Attending Physician: History of Present Illness pt started not feeling well sunday night. had fevers sunday with worsening pain today. pain is in LLQ. no prior hx of diverticulitis. does get routine colonoscopies for polyps. Past Medical/Surgical History Medical Problems: (1) Diverticulitis of intestine with perforation Status: Acute Family History Cancer Gallbladder disease Hypertension Social History Smoking Status: Never Smoker Drug Use: none Marital Status: Housing Status: lives alone Occupation Status: retired Allergies Coded Allergies: Iodinated Diagnostic Agents (Verified Allergy, Severe, HIVES, 01/16/17) Sulfa Drugs (Verified Allergy, Intermediate, SOB/RASH, 01/16/17) Ciprofloxacin (Verified Allergy, Unknown, SOB/RASH, 01/16/17) Niacin (Verified Allergy, Unknown, UNK, 01/16/17) Uncoded Allergies: IODINE CRYSTALS (Allergy, Unknown, UNKNOWN, 12/11/14) Home Medications Scheduled Aspirin (Aspirin Ec), 81 MG PO DAILY Calcium Carbonate-Vitamin D (Calcium + D), 1 TAB PO DAILY Esomeprazole Magnesium (Nexium), 40 MG PO DAILY Fish Oil ([place]-3), 1,000 MG PO DAILY Hydrochlorothiazide (Hctz), 25 MG PO DAILY Levothyroxine (Synthroid *), 0.112 MG PO DAILY Losartan Potassium (Cozaar), 1 TAB PO DAILY Lovastatin (Mevacor), 40 MG PO DAILY Scheduled PRN Cetirizine (Zyrtec), 10 MG PO DAILY PRN for PRN Clonazepam (Klonopin), 1 MG PO BID PRN for Anxiety Current Inpatient Medications Current Inpatient Medications Medications (Trade) Dose Ordered Sig/Jonathan Route Start Time Stop Time Status Last Admin Dose Admin Acetaminophen (Tylenol Tab) 650 mg Q4H PRN PO 01/16/17 19:00 02/15/17 18:59 Al Hydrox/Mg Hydrox/Simethicone (Maalox Max Susp) 15 ml Q4H PRN PO 01/16/17 19:00 02/15/17 18:59 Magnesium Hydroxide (Milk Of Magnesia Susp) 30 ml Q6H PRN PO 01/16/17 19:00 02/15/17 18:59 Polyethylene (Miralax Powder Packet) 17 gm DAILY PRN PO 01/16/17 19:00 02/15/17 18:59 Ondansetron HCl (Zofran Inj) 4 mg Q6H PRN IV 01/16/17 19:00 02/15/17 18:59 Piperacillin Sod/ Tazobactam Sod 3.375 gm/Dextrose 115 ml @ 28.75 mls/ hr Q12 IV 01/16/17 21:00 01/26/17 20:59 UNV Potassium Chloride/Sodium Chloride 1,000 ml @ 125 mls/hr Q8H IV 01/16/17 19:00 02/15/17 18:59 UNV Pantoprazole Sodium (Protonix Tab) 40 mg QAM PO 01/17/17 09:00 02/16/17 08:59 Aspirin (Ecotrin Tab) 81 mg DAILY PO 01/17/17 09:00 02/16/17 08:59 Cetirizine HCl (zyrTEC TAB) 10 mg DAILY PRN PO 01/16/17 19:00 02/15/17 18:59 Clonazepam (Klonopin Tab) 1 mg BID PRN PO 01/16/17 19:00 02/15/17 18:59 Fish Oil ([place]-3 (Purified Fish Oil) Cap) 1 gm DAILY PO 01/17/17 09:00 02/16/17 08:59 Levothyroxine Sodium (Synthroid Tab) 112 mcg DAILYBB PO 01/17/17 07:00 02/16/17 06:59 Losartan Potassium (coZAAR TAB) 100 mg DAILY PO 01/17/17 09:00 02/16/17 08:59 Lovastatin (Mevacor Tab) 40 mg DAILY PO 01/17/17 09:00 02/16/17 08:59 Morphine Sulfate (MoRPHine SULFATE INJ) 1 mg Q3H PRN IV 01/16/17 19:15 01/30/17 19:14 Heparin Sodium (Porcine) (Heparin Sq 5000 Unit/0.5ml) 5,000 unit Q12 SQ 01/16/17 21:00 02/15/17 20:59 UNV Piperacillin Sod/ Tazobactam Sod (Consult) 1 ea UD PRN N/A 01/16/17 19:30 02/15/17 19:29 Review of Systems Constitutional: + fever, + chills, + sweats Abdomen: + pain Physical Exam Date Time Temp Pulse Resp B/P (MAP) Pulse Ox O2 Delivery O2 Flow Rate FiO2 01/16/17 18:31 60 01/16/17 15:49 36.9 73 16 117/70 93 Room Air General Appearance: no apparent distress Head: normocephalic, atraumatic Eyes: EOMI ENT: hearing grossly normal Neck: no JVD Respiratory/Chest: no respiratory distress, no accessory muscle use Abdomen/GI: soft, + pertinent finding (+LLQ ttp. no peritoneal signs) Neurologic/Psych: alert, oriented x 3 Skin: normal color, warm/dry Laboratory Results Last 24 Hours Test 01/16/17 17:40 White Blood Count 11.00 K/uL Red Blood Count 4.17 M/uL Hemoglobin 12.7 g/dL Hematocrit 36.6 % Mean Corpuscular Volume 87.8 fL Mean Corpuscular Hemoglobin 30.5 pg Mean Corpuscular Hemoglobin Concent 34.7 g/dl Platelet Count 159 K/uL Mean Platelet Volume 10.5 fL Neutrophils (%) (Auto) 71.6 % Lymphocytes (%) (Auto) 18.0 % Monocytes (%) (Auto) 9.0 % Eosinophils (%) (Auto) 0.8 % Basophils (%) (Auto) 0.3 % Neutrophils # (Auto) 7.88 K/uL Lymphocytes # (Auto) 1.98 K/uL Monocytes # (Auto) 0.99 K/uL Eosinophils # (Auto) 0.09 K/uL Basophils # (Auto) 0.03 K/uL RDW Standard Deviation 43.2 fL RDW Coefficient of Variation 13.5 % Immature Granulocyte % (Auto) 0.3 % Immature Granulocyte # (Auto) 0.03 K/uL Sodium Level 135 mmol/L Potassium Level 3.1 mmol/L Chloride Level 100 mmol/L Carbon Dioxide Level 31 mmol/L Anion Gap 4.0 mmol/L Blood Urea Nitrogen 21 mg/dl Creatinine 1.10 mg/dl Est Creatinine Clear Calc Drug Dose 46.8 ml/min Estimated GFR () 53.8 Estimated GFR (Non- 46.4 BUN/Creatinine Ratio 19.2 Random Glucose 87 mg/dl Calcium Level 9.3 mg/dl Total Bilirubin 1.0 mg/dl Direct Bilirubin 0.3 mg/dl Aspartate Amino Transf (AST/SGOT) 16 U/L Alanine Aminotransferase (ALT/SGPT) 25 U/L Alkaline Phosphatase 61 U/L Total Protein 6.6 gm/dl Albumin 3.0 gm/dl Lipase 98 U/L Assessment & Plan acute diverticulitis with microperforation admit/NPO/IV antibiotics no emergent need at this time for surgery will follow along closely.
[2017-01-16] MEDS ORDERED: PIPERACILL/TAZOBAC CONSULT ACTIVE PRN (19:30)
[2017-01-16 20:30] VITALS: BP 141/83; PULSE 69; TEMP 36.7; O2SAT 93; Ht 162.6 cm; Wt 109.2 kg
[2017-01-16 20:35] VITALS: O2SAT 93
[2017-01-16] MEDS: ACETAMINOPHEN 325 MG TAB PO PRN (21:20)
[2017-01-16] MEDS: NSS + 20MEQ KCL 1000ML 1,000 ML IV SCH (21:21)
[2017-01-16 21:42] LABS: URINE APPEARANCE CLEAR (CLEAR); URINE BILIRUBIN NEG (NEG); URINE COLOR YELLOW; URINE NITRITE NEG (NEG); URINE SPECIFIC GRAVITY 1.014 (1.000-1.030); UROBILINOGEN NEG (NEG); ZZUR CULT IF INDIC CLEAN CATCH NO
[2017-01-16 21:54] LABS: MANUAL MICROSCOPIC REQUIRED? NO; REVIEW REQ? YES
[2017-01-16 21:55] LABS: INR 1.1 (0.9-1.1); PROTHROMBIN TIME (PATIENT) 11.4 SECONDS (9.0-12.0)
[2017-01-16] MEDS ORDERED: PIPERACILL/TAZOBAC IV 3.375 GM in DEXTROSE 5% 100ML 100 ML IV ONE (22:00)
[2017-01-16 23:01] VITALS: BP 116/69; PULSE 67; TEMP 36.7; O2SAT 92
[2017-01-16] MEDS: HEPARIN SOD 5000 UNIT/0.5 ML CARP SQ SCH (23:02)
[2017-01-17] MEDS: ACETAMINOPHEN 325 MG TAB PO PRN ×2 (01:31→11:30)
[2017-01-17] MEDS: PIPERACILL/TAZOBAC IV 3.375 GM in DEXTROSE 5% 100ML 100 ML IV SCH ×2 (03:35→11:36)
[2017-01-17] MEDS: NSS + 20MEQ KCL 1000ML 1,000 ML IV SCH ×3 (04:56→20:49)
[2017-01-17] MEDS: LEVOTHYROXINE 112 MCG TAB PO SCH (05:02)
[2017-01-17 05:50] LABS: MEAN CELL VOLUME 87.9 fL (80-100); MEAN CORPUSCULAR HEMOGLOBIN 30.5 pg (25-34); MEAN CORPUSCULAR HGB CONC 34.7 g/dl (32-36); MEAN PLATELET VOLUME 9.8 fL (7.4-10.4); PLATELET COUNT 151 K/uL (130-400); RED BLOOD COUNT 3.87 M/uL (4.2-5.4); WHITE BLOOD COUNT 7.63 K/uL (4.8-10.8)
[2017-01-17 06:29] LABS: BUN/CREATININE RATIO 16.1 (10-20); CALCIUM 8.5 mg/dl (8.5-10.1); CREATININE 0.97 mg/dl (0.60-1.20); POTASSIUM 3.6 mmol/L (3.5-5.1)
[2017-01-17 07:07] VITALS: BP 115/75; PULSE 60; TEMP 36.7; O2SAT 94
[2017-01-17] MEDS ORDERED: HYDROCHLOROTHIAZIDE 25 MG TAB PO SCH (09:00)
[2017-01-17] MEDS: LOSARTAN POTASSIUM 50 MG TAB PO SCH (09:20)
[2017-01-17] MEDS: ASPIRIN 81 MG ECTAB PO SCH (09:21)
[2017-01-17] MEDS: LOVASTATIN 20 MG TAB PO SCH (09:21)
[2017-01-17] MEDS: OMEGA-3 (PURIFIED FISH OIL) 1 GM CAP PO SCH (09:22)
[2017-01-17] MEDS: PANTOprazole SOD 40 MG TAB PO SCH (09:23)
[2017-01-17] MEDS: HEPARIN SOD 5000 UNIT/0.5 ML CARP SQ SCH ×2 (09:28→20:50)
--- NOTE | 2017-01-17 09:49 | Clinical Documentation Query ---
CLINICAL DOCUMENTATION QUERY QUERY 1 OF 2 81 y/o female, with PMHx of HTN, hypothyroidism, hyperlipidemia, GERD, anxiety/depression, and diverticular disease, who presented to the ED because of worsening LLQ pain since 01/14. In your clinical opinion is this patient being managed for: ( ) Acute peritonitis associated with diverticulitis ( X ) Not Agree ( ) Other explanation of clinical findings (Please Explain) ( ) Unable to determine (Please Define) ( ) Need to Discuss The medical record reflects the following clinical findings, treatment, and risk factors. Clinical Indicators: Sudden onset abdominal pain, abdominal distended with significant tenderness/guarding LLQ, patient stated fever/chills, diarrhea, CT scan "moderate surrounding inflammatory stranding surrounding inflamed diverticula", WBC 11.00 Treatment: IV zosyn and Unasyn, IV hydration, surgical consult Risk Factors: Age, obese, diverticulitis with perforation The symptoms of peritonitis depend on the virulence and extent of the infection. In a previously well patient, the sudden onset of abdominal pain is either localized if the process is confined by viscera or omentum, or generalized, if the entire peritoneal cavity is involved. In severe cases of generalized peritonitis, tenderness occurs over the entire abdomen with vomiting and a high fever. Peristalsis is absent. *Peritonitis with appendicitis: localized peritonitis (inflammation) is more common and presents as tenderness in the right lower quadrant; tenderness over the entire abdomen may indicate the extent of the inflammation. QUERY 2 OF 2 In your clinical opinion is this patient being managed for: ( X ) Chronic kidney disease, stage 3 ( ) Not Agree ( ) Other explanation of clinical findings (Please Explain) ( ) Unable to determine (Please Define) ( ) Need to Discuss The medical record reflects the following clinical findings, treatment, and risk factors. Clinical Indicators: GFR 46.4, 54.0, diverticulitis with perforation Treatment: IV hydration Risk Factors: Age, obese, hx diverticulitis, HTN, dehydration Please clarify and document your clinical opinion in the progress notes and discharge summary. Terms such as "probable", "suspected", "likely", "questionable", "possible", or "still to be ruled out" are acceptable. IF IN AGREEMENT, YOU MUST DOCUMENT ABOVE DIAGNOSTIC STATEMENT IN DAILY PROGRESS NOTES AND DISCHARGE SUMMARY. This document is not part of the patient's record. Thank You, Eboni Payan RN [phone]
--- NOTE | 2017-01-17 10:43 | Surgery Progress Note ---
Surgery Progress Note Date of Service Jan 17, 2017. Subjective feels much better this AM, no fevers or chills, bowels moving Objective Vital Signs: Date Time Temp Pulse Resp B/P (MAP) Pulse Ox O2 Delivery O2 Flow Rate FiO2 01/17/17 07:20 Room Air 01/17/17 07:07 36.7 60 16 115/75 (88) 94 Room Air 01/16/17 23:12 Room Air 01/16/17 23:01 36.7 67 16 116/69 (85) 92 Room Air 01/16/17 20:35 36.9 60 16 124/76 93 01/16/17 20:30 36.7 69 16 141/83 (102) 93 Room Air 01/16/17 20:30 36.7 69 18 141/83 Room Air 01/16/17 20:30 Room Air 01/16/17 18:31 60 01/16/17 15:49 36.9 73 16 117/70 93 Room Air Abdomen: non distended, soft, + tenderness (left lower nearing CVA) Laboratory Results: Results Past 24 Hours Test 01/16/17 17:40 01/17/17 05:17 Range/Units White Blood Count 11.00 7.63 4.8-10.8 K/uL Red Blood Count 4.17 3.87 4.2-5.4 M/uL Hemoglobin 12.7 11.8 12.0-16.0 g/dL Hematocrit 36.6 34.0 37-47 % Mean Corpuscular Volume 87.8 87.9 80-100 fL Mean Corpuscular Hemoglobin 30.5 30.5 25-34 pg Mean Corpuscular Hemoglobin Concent 34.7 34.7 32-36 g/dl Platelet Count 159 151 130-400 K/uL Mean Platelet Volume 10.5 9.8 7.4-10.4 fL Neutrophils (%) (Auto) 71.6 % Lymphocytes (%) (Auto) 18.0 % Monocytes (%) (Auto) 9.0 % Eosinophils (%) (Auto) 0.8 % Basophils (%) (Auto) 0.3 % Neutrophils # (Auto) 7.88 1.4-6.5 K/uL Lymphocytes # (Auto) 1.98 1.2-3.4 K/uL Monocytes # (Auto) 0.99 0.11-0.59 K/uL Eosinophils # (Auto) 0.09 0-0.5 K/uL Basophils # (Auto) 0.03 0-0.2 K/uL RDW Standard Deviation 43.2 43.7 36.4-46.3 fL RDW Coefficient of Variation 13.5 13.5 11.5-14.5 % Immature Granulocyte % (Auto) 0.3 % Immature Granulocyte # (Auto) 0.03 0.00-0.02 K/uL Prothrombin Time 11.4 9.0-12.0 SECONDS Prothromb Time International Ratio 1.1 0.9-1.1 Sodium Level 135 141 136-145 mmol/L Potassium Level 3.1 3.6 3.5-5.1 mmol/L Chloride Level 100 109 98-107 mmol/L Carbon Dioxide Level 31 28 21-32 mmol/L Anion Gap 4.0 4.0 3-11 mmol/L Blood Urea Nitrogen 21 16 7-18 mg/dl Creatinine 1.10 0.97 0.60-1.20 mg/dl Est Creatinine Clear Calc Drug Dose 46.8 53.1 ml/min Estimated GFR () 53.8 62.6 Estimated GFR (Non- 46.4 54.0 BUN/Creatinine Ratio 19.2 16.1 10-20 Random Glucose 87 101 70-99 mg/dl Calcium Level 9.3 8.5 8.5-10.1 mg/dl Total Bilirubin 1.0 0.2-1 mg/dl Direct Bilirubin 0.3 0-0.2 mg/dl Aspartate Amino Transf (AST/SGOT) 16 15-37 U/L Alanine Aminotransferase (ALT/SGPT) 25 12-78 U/L Alkaline Phosphatase 61 45-117 U/L Total Protein 6.6 6.4-8.2 gm/dl Albumin 3.0 3.4-5.0 gm/dl Lipase 98 73-393 U/L Assessment & Plan diverticulitis with microperf improving can have clears cont IV Zosyn
--- NOTE | 2017-01-17 13:08 | Progress Note ---
Subjective Date of Service: Jan 17, 2017. Subjective Pt evaluation today including: conversation w/ patient, physical exam, chart review, lab review, review of studies, review of inpatient medication list Resting comfortably in bed Denies any worsening pain, N/V/D Tolerating clears Problem List Medical Problems: (1) Diverticulitis of intestine with perforation Status: Acute Review of Systems Constitutional: No fever, No chills, No sweats, No weakness ENT: No hearing loss, No unusual epistaxis, No nasal symptoms, No sore throat Respiratory: No cough, No sputum, No wheezing, No shortness of breath, No dyspnea on exertion Cardiac: No chest pain, No orthopnea, No PND, No edema Abdomen: No pain, No nausea, No vomiting, No diarrhea, No constipation Musculoskeletal: No joint pain, No muscle pain, No swelling, No calf pain Female : No dysuria, No urinary frequency, No hematuria, No incontinence Neurologic: No memory loss, No paralysis, No weakness, No numbness/tingling Psychiatric: No depression symptoms, No anhedonism, No anxiety, No insomnia Endo: No fatigue, No excessive thirst Skin: No rash, No itch Objective Vital Signs Date Time Temp Pulse Resp B/P (MAP) Pulse Ox O2 Delivery O2 Flow Rate FiO2 01/17/17 07:20 Room Air 01/17/17 07:07 36.7 60 16 115/75 (88) 94 Room Air 01/16/17 23:12 Room Air 01/16/17 23:01 36.7 67 16 116/69 (85) 92 Room Air 01/16/17 20:35 36.9 60 16 124/76 93 01/16/17 20:30 36.7 69 16 141/83 (102) 93 Room Air 01/16/17 20:30 36.7 69 18 141/83 Room Air 01/16/17 20:30 Room Air 01/16/17 18:31 60 01/16/17 15:49 36.9 73 16 117/70 93 Room Air Physical Exam General Appearance: WD/WN, no apparent distress Eyes: normal inspection, PERRL, EOMI, sclerae normal ENT: normal ENT inspection, hearing grossly normal, TMs normal, pharynx normal Neck: supple, no adenopathy, thyroid normal, no JVD Respiratory/Chest: chest non-tender, lungs clear, normal breath sounds, no respiratory distress Cardiovascular: regular rate, rhythm, no edema, no gallop, no JVD Abdomen: normal bowel sounds, non tender, soft, no organomegaly Extremities: normal range of motion, non-tender, normal inspection, no pedal edema Neurologic/Psychiatric: no motor/sensory deficits, alert, normal mood/affect, oriented x 3 Laboratory Results Last 24 Hours Test 01/16/17 17:40 01/17/17 05:17 White Blood Count 11.00 K/uL 7.63 K/uL Red Blood Count 4.17 M/uL 3.87 M/uL Hemoglobin 12.7 g/dL 11.8 g/dL Hematocrit 36.6 % 34.0 % Mean Corpuscular Volume 87.8 fL 87.9 fL Mean Corpuscular Hemoglobin 30.5 pg 30.5 pg Mean Corpuscular Hemoglobin Concent 34.7 g/dl 34.7 g/dl Platelet Count 159 K/uL 151 K/uL Mean Platelet Volume 10.5 fL 9.8 fL Neutrophils (%) (Auto) 71.6 % Lymphocytes (%) (Auto) 18.0 % Monocytes (%) (Auto) 9.0 % Eosinophils (%) (Auto) 0.8 % Basophils (%) (Auto) 0.3 % Neutrophils # (Auto) 7.88 K/uL Lymphocytes # (Auto) 1.98 K/uL Monocytes # (Auto) 0.99 K/uL Eosinophils # (Auto) 0.09 K/uL Basophils # (Auto) 0.03 K/uL RDW Standard Deviation 43.2 fL 43.7 fL RDW Coefficient of Variation 13.5 % 13.5 % Immature Granulocyte % (Auto) 0.3 % Immature Granulocyte # (Auto) 0.03 K/uL Prothrombin Time 11.4 SECONDS Prothromb Time International Ratio 1.1 Sodium Level 135 mmol/L 141 mmol/L Potassium Level 3.1 mmol/L 3.6 mmol/L Chloride Level 100 mmol/L 109 mmol/L Carbon Dioxide Level 31 mmol/L 28 mmol/L Anion Gap 4.0 mmol/L 4.0 mmol/L Blood Urea Nitrogen 21 mg/dl 16 mg/dl Creatinine 1.10 mg/dl 0.97 mg/dl Est Creatinine Clear Calc Drug Dose 46.8 ml/min 53.1 ml/min Estimated GFR () 53.8 62.6 Estimated GFR (Non- 46.4 54.0 BUN/Creatinine Ratio 19.2 16.1 Random Glucose 87 mg/dl 101 mg/dl Calcium Level 9.3 mg/dl 8.5 mg/dl Total Bilirubin 1.0 mg/dl Direct Bilirubin 0.3 mg/dl Aspartate Amino Transf (AST/SGOT) 16 U/L Alanine Aminotransferase (ALT/SGPT) 25 U/L Alkaline Phosphatase 61 U/L Total Protein 6.6 gm/dl Albumin 3.0 gm/dl Lipase 98 U/L Assessment and Plan Patient is a pleasant 81 y/o female, with PMHx of HTN, hypothyroidism, hyperlipidemia, GERD, anxiety/depression, and diverticular disease, who presented to the ED because of worsening LLQ pain since 01/14. Acute diverticulitis w/ microperforation: - Admit to med/surg - Cont IV Zosyn, leukocytosis resolved - IV NSS + 20 mEq KCL @ 125 ml/hr - IV Morphine 1 mg q3 hrs PRN severe pain - Advanced to clears - Consult general surgery, appreciate recommendations, no surgical intervention YOEL resolved with hydration, likely prerenal Leukocytosis, secondary to diverticulitis, resolved - IV antibiotics as above Hypokalemia/hyponatremia, likely secondary to dehydration/diarrhea, resolved - IVF as above - Hold HCTZ - Repeat PRP tomorrow AM HTN: - Continue Losartan 100 mg daily - Hold HCTZ 25 mg daily due to hypokalemia Hypothyroidism: Continue Synthroid 0.112 mcg daily Hyperlipidemia: Continue Lovastatin 40 mg daily and Fish Oil GERD: Protonix 40 mg daily- resume Nexium at discharge Anxiety/depression: Klonopin 1 mg BID PRN DVT prophylaxis: Heparin SQ BID Code Status: LEVEL I FULL
[2017-01-17 15:00] VITALS: BP 126/86; PULSE 57; TEMP 36.5; O2SAT 95
[2017-01-17] MEDS: PIPERACILL/TAZOBAC IV 4.5 GM in DEXTROSE 5% 100ML IV SCH (19:38)
[2017-01-17 22:51] VITALS: BP 119/75; PULSE 59; TEMP 36.6; O2SAT 94
[2017-01-17] MEDS: LIDODERM (LIDOCAINE) PATCH 5% TD SCH (23:25)
[2017-01-18] MEDS: PIPERACILL/TAZOBAC IV 4.5 GM in DEXTROSE 5% 100ML IV SCH ×2 (04:12→12:04)
[2017-01-18] MEDS: NSS + 20MEQ KCL 1000ML 1,000 ML IV SCH ×2 (04:12→12:03)
[2017-01-18] MEDS: LEVOTHYROXINE 112 MCG TAB PO SCH (05:57)
[2017-01-18 06:19] LABS: HEMATOCRIT 33.6 % (37-47); MEAN CELL VOLUME 88.9 fL (80-100); MEAN CORPUSCULAR HEMOGLOBIN 30.2 pg (25-34); MEAN CORPUSCULAR HGB CONC 33.9 g/dl (32-36); MEAN PLATELET VOLUME 9.9 fL (7.4-10.4); PLATELET COUNT 164 K/uL (130-400); RED BLOOD COUNT 3.78 M/uL (4.2-5.4); WHITE BLOOD COUNT 6.45 K/uL (4.8-10.8)
[2017-01-18 06:56] LABS: BUN/CREATININE RATIO 11.9 (10-20); CALCIUM 8.6 mg/dl (8.5-10.1); CREATININE 0.8 mg/dl (0.60-1.20); POTASSIUM 3.9 mmol/L (3.5-5.1)
[2017-01-18 07:14] VITALS: BP 156/91; PULSE 61; TEMP 36.3; O2SAT 92
[2017-01-18] MEDS: LOSARTAN POTASSIUM 50 MG TAB PO SCH (08:44)
[2017-01-18] MEDS: PANTOprazole SOD 40 MG TAB PO SCH (08:44)
[2017-01-18] MEDS: LOVASTATIN 20 MG TAB PO SCH (08:44)
[2017-01-18] MEDS: OMEGA-3 (PURIFIED FISH OIL) 1 GM CAP PO SCH (08:45)
[2017-01-18] MEDS: ASPIRIN 81 MG ECTAB PO SCH (08:45)
[2017-01-18] MEDS: LIDODERM (LIDOCAINE) PATCH 5% TD SCH (08:48)
[2017-01-18] MEDS: HEPARIN SOD 5000 UNIT/0.5 ML CARP SQ SCH (08:48)
--- NOTE | 2017-01-18 09:41 | Surgery Progress Note ---
Surgery Progress Note Date of Service Jan 18, 2017. Subjective + feeling well, + bowel movement, + flatus, + pain controlled, No complaints, No nausea, No vomiting Sitting up in bed- states that she is feeling even better than yesterday. Objective Vital Signs: Date Time Temp Pulse Resp B/P (MAP) Pulse Ox O2 Delivery O2 Flow Rate FiO2 01/18/17 07:15 Room Air 01/17/17 23:33 Room Air 01/17/17 22:51 36.6 59 17 119/75 (90) 94 Room Air 01/17/17 15:39 Room Air 01/17/17 15:00 36.5 57 20 126/86 (99) 95 Room Air General Appearance: WD/WN, no apparent distress Abdomen: non tender, soft Laboratory Results: Results Past 24 Hours Test 01/18/17 05:55 Range/Units White Blood Count 6.45 4.8-10.8 K/uL Red Blood Count 3.78 4.2-5.4 M/uL Hemoglobin 11.4 12.0-16.0 g/dL Hematocrit 33.6 37-47 % Mean Corpuscular Volume 88.9 80-100 fL Mean Corpuscular Hemoglobin 30.2 25-34 pg Mean Corpuscular Hemoglobin Concent 33.9 32-36 g/dl RDW Standard Deviation 44.9 36.4-46.3 fL RDW Coefficient of Variation 13.7 11.5-14.5 % Platelet Count 164 130-400 K/uL Mean Platelet Volume 9.9 7.4-10.4 fL Sodium Level 144 136-145 mmol/L Potassium Level 3.9 3.5-5.1 mmol/L Chloride Level 113 98-107 mmol/L Carbon Dioxide Level 26 21-32 mmol/L Anion Gap 5.0 3-11 mmol/L Blood Urea Nitrogen 10 7-18 mg/dl Creatinine 0.80 0.60-1.20 mg/dl Est Creatinine Clear Calc Drug Dose 64.4 ml/min Estimated GFR () 79.0 Estimated GFR (Non- 68.2 BUN/Creatinine Ratio 11.9 10-20 Random Glucose 91 70-99 mg/dl Calcium Level 8.6 8.5-10.1 mg/dl Assessment & Plan Diverticulitis with Mircoperf patient continues to improve each day- tolerating liquids. feels like she is ready to go home will advance diet to full liquids.
[2017-01-18] MEDS ORDERED: AMOX875T PO (13:14)
--- NOTE | 2017-01-18 13:17 | Discharge Instructions ---
Discharge Instructions Date of Service Jan 18, 2017. Admission Reason for Admission: Diverticulitis Of Intestine With Perforation Discharge Discharge Diagnosis / Problem: Diverticulitis with microperforation Discharge Goals Goal(s): Decrease discomfort, Improve function, Increase independence, Improve disease control, Learn about illness, Diagnostic testing, Prevent Disease Progression Activity Recommendations Activity Limitations: resume your previous activity Exercise/Sports Limitations: as tolerated . Instructions / Follow-Up Instructions / Follow-Up Patient to be discharged home Please take antibiotic augmentin twice a day for 7 more day If worsening abdominal pain or fevers please report to ER Would benefit from low fiber diet Please follow up with Dr Patricia in 1-2 weeks Current Hospital Diet Patient's current hospital diet: Regular Diet Discharge Diet Recommended Diet: Low Fiber Diet Pending Studies Studies pending at discharge: no Medical Emergencies . Who to Call and When: Medical Emergencies: If at any time you feel your situation is an emergency, please call 911 immediately. . Non-Emergent Contact Non-Emergency issues call your: Primary Care Provider Call Non-Emergent contact if: you have a fever, your pain is worsening . . "Provider Documentation" section prepared by Edouard Schroeder. . VTE Core Measure Inpt VTE Proph given/why not?: Brody Crawley, SCD's
--- NOTE | 2017-01-18 13:22 | Discharge Summary ---
Discharge Summary Date of Service Jan 18, 2017. Discharge Summary Admission Date: Jan 16, 2017 at 19:00 Discharge Date: Jan 18, 2017 Discharge Disposition: Home Principal Diagnosis: Acute diverticulitis with microperforation Immunizations: Have You Had Influenza Vaccine: Yes History of Tetanus Vaccine?: Yes History of Pneumococcal: Yes History of Hepatitis B Vaccine: No Consultations: General surgery Medication Reconciliation New Medications: Amoxicillin & Pot Clavulanate (Augmentin 875-125 mg) 1 Tab Tab 875 MG PO BID for 7 Days, #14 TAB Continued Medications: Aspirin (Aspirin Ec) 81 Mg Tab 81 MG PO DAILY Calcium Carbonate-Vitamin D (Calcium + D) 1 Tab Tab 1 TAB PO DAILY Cetirizine (Zyrtec) 10 Mg Tab 10 MG PO DAILY PRN for PRN Clonazepam (Klonopin) 1 Mg Tab 1 MG PO BID PRN for Anxiety, TAB Esomeprazole Magnesium (Nexium) 40 Mg Capcr 40 MG PO DAILY, 0 Refills Fish Oil ([place]-3) 1 Ea Cap 1000 MG PO DAILY, CAP Hydrochlorothiazide (Hctz) 25 Mg Tab 25 MG PO DAILY, TAB Levothyroxine (Synthroid *) 0.112 Mg Tab 0.112 MG PO DAILY, 0 Refills Losartan Potassium (Cozaar) 100 Mg Tab 1 TAB PO DAILY Lovastatin (Mevacor) 40 Mg Tab 40 MG PO DAILY, 0 Refills Discharge Exam Review of Systems: Constitutional: No fever, No chills, No sweats, No weakness Eyes: No worsening of vision, No eye pain, No redness, No discharge Respiratory: No cough, No sputum, No wheezing, No shortness of breath Cardiovascular: No chest pain, No orthopnea, No PND, No edema Abdomen: No pain, No nausea, No vomiting, No diarrhea Musculoskeletal: No joint pain, No muscle pain, No swelling, No calf pain Genitourinary - Female: No dysuria, No urinary frequency, No urinary urgency , No urinary incontinence Neurologic: No memory loss, No paralysis, No weakness, No numbness/tingling Psychiatric: No depression symptoms, No anhedonism, No anxiety, No insomnia Endocrine: No fatigue, No excessive thirst Integumentary: No rash, No itch Hospital Course Patient is a pleasant 81 y/o female, with PMHx of HTN, hypothyroidism, hyperlipidemia, GERD, anxiety/depression, and diverticular disease, who presented to the ED because of worsening LLQ pain since 01/14. Acute diverticulitis w/ microperforation: - Admitted to med/surg - Started on IV Zosyn, leukocytosis resolved - IV NSS + 20 mEq KCL @ 125 ml/hr - IV Morphine 1 mg q3 hrs PRN severe pain - Consult general surgery, appreciate recommendations, no surgical intervention -TOlerated advancement of diet, no fevers, DC home on augmentin PO BID for 7 days YOEL resolved with hydration, likely prerenal Leukocytosis, secondary to diverticulitis, resolved Hypokalemia/hyponatremia, likely secondary to dehydration/diarrhea, resolved - IVF as above - Hold HCTZ - Repeat PRP tomorrow AM HTN: - Continue Losartan 100 mg daily - Hold HCTZ 25 mg daily due to hypokalemia Hypothyroidism: Continue Synthroid 0.112 mcg daily Hyperlipidemia: Continue Lovastatin 40 mg daily and Fish Oil GERD: Protonix 40 mg daily- resume Nexium at discharge Anxiety/depression: Klonopin 1 mg BID PRN DVT prophylaxis: Heparin SQ BID Code Status: LEVEL I FULL Total Time Spent: Greater than 30 minutes This includes examination of the patient, discharge planning, medication reconciliation, and communication with other providers. Discharge Instructions Please refer to the electronic Patient Visit Report (Discharge Instructions) for additional information. Additional Copies To Sergei Patricia M.D.
[2017-01-18 15:10] VITALS: BP 151/104; PULSE 62; TEMP 36.7; O2SAT 93
[2017-01-18 18:59] VITALS: BP 151/104; PULSE 62; TEMP 36.7; O2SAT 93
[2017-01-18 19:27] VITALS: BP 171/91; PULSE 75; TEMP 36.5; O2SAT 93
== END 2017-01-18 19:15 | disposition home or self-care (01) | DRG 392 ==
LOC: C.EDB 15:47 → C.MSN 19:00 → ENRESERV 19:30 → CANRESERV 19:30 → ENRESERV 20:08
PROVIDERS: ADMIT Internal Medicine; ATTEND Hospitalist
DX: K57.80 Diverticulitis of intestine, part unspecified, with perforation and abscess without bleeding (principal); N17.9 Acute kidney failure, unspecified; E87.1 Hypo-osmolality and hyponatremia; Z79.82 Long term (current) use of aspirin; I10 Essential (primary) hypertension; E03.9 Hypothyroidism, unspecified; E78.5 Hyperlipidemia, unspecified; K21.9 Gastro-esophageal reflux disease without esophagitis; F41.9 Anxiety disorder, unspecified; F32.9 Major depressive disorder, single episode, unspecified; D72.829 Elevated white blood cell count, unspecified; E87.6 Hypokalemia; Z82.49 Family history of ischemic heart disease and other diseases of the circulatory system

== ENCOUNTER → 2017-01-31 | Outpatient (CLI) | payer OTHER, BC ==
[2017-01-31 14:13] LABS: URINE APPEARANCE CLEAR (CLEAR); URINE BILIRUBIN NEG (NEG); URINE COLOR YELLOW; URINE EPITHELIAL CELL AUTO 20-30 /lpf (0-5); URINE NITRITE POS (NEG); URINE SPECIFIC GRAVITY 1.011 (1.000-1.030); UROBILINOGEN NEG (NEG)
[2017-01-31 14:23] LABS: MANUAL MICROSCOPIC REQUIRED? NO; REVIEW REQ? NO
== END | disposition home or self-care (01) ==
LOC: C.LABSPEC 13:32
PROVIDERS: ATTEND Physician Assistant
DX: R33.9 Retention of urine, unspecified (principal); N39.0 Urinary tract infection, site not specified

== ENCOUNTER → 2017-02-19 | Outpatient (CLI) | payer OTHER, BC ==
[2017-02-19 12:31] LABS: HEMATOCRIT 42.5 % (37-47); MEAN CELL VOLUME 86.7 fL (80-100); MEAN PLATELET VOLUME 10.1 fL (7.4-10.4); PLATELET COUNT 179 K/uL (130-400); WHITE BLOOD COUNT 9.63 K/uL (4.8-10.8)
[2017-02-19 12:43] LABS: MEAN CORPUSCULAR HGB CONC 34.6 g/dl (32-36)
== END | disposition home or self-care (01) ==
LOC: C.LAB 12:04
PROVIDERS: ATTEND Surgery
DX: K57.92 Diverticulitis of intestine, part unspecified, without perforation or abscess without bleeding (principal)

== ENCOUNTER → 2017-09-18 | Outpatient (CLI) | payer OTHER, BC ==
[2017-09-18 16:47] LABS: BASO % 1.3 %; BASO ABS # 0.08 K/uL (0-0.2); EOS % 1.9 %; EOS ABS # 0.12 K/uL (0-0.5); HEMATOCRIT 42.2 % (37-47); HEMOGLOBIN 14.7 g/dL (12.0-16.0); IG# 0.01 K/uL (0.00-0.02); LYMPH % 36.5 %; LYMPH ABS # 2.25 K/uL (1.2-3.4); MEAN CELL VOLUME 85.9 fL (80-100); MEAN CORPUSCULAR HEMOGLOBIN 29.9 pg (25-34); MEAN CORPUSCULAR HGB CONC 34.8 g/dl (32-36); MEAN PLATELET VOLUME 10.4 fL (7.4-10.4); MONO ABS # 0.43 K/uL (0.11-0.59); NEUT % 53.1 %; NEUT ABS # 3.27 K/uL (1.4-6.5); PLATELET COUNT 206 K/uL (130-400); RED CELL DISTRIBUTION WIDTH CV 13.5 % (11.5-14.5); RED CELL DISTRIBUTION WIDTH SD 42.3 fL (36.4-46.3); WHITE BLOOD COUNT 6.16 K/uL (4.8-10.8)
[2017-09-18 17:20] LABS: ALT/SGPT 30 U/L (12-78); AST/SGOT 18 U/L (15-37); BLOOD UREA NITROGEN 17 mg/dl (7-18); CALCIUM 9.3 mg/dl (8.5-10.1); CARBON DIOXIDE 30 mmol/L (21-32); CREATININE 0.85 mg/dl (0.60-1.20); GLUCOSE 87 mg/dl (70-99); POTASSIUM 3.7 mmol/L (3.5-5.1); SODIUM 140 mmol/L (136-145)
[2017-09-18 17:31] LABS: ALKALINE PHOSPHATASE 71 U/L (45-117); CHOLESTEROL 167 mg/dl (0-200); LDL CHOLESTEROL CALCULATED 87 mg/dl; TOTAL PROTEIN 7.6 gm/dl (6.4-8.2)
== END | disposition home or self-care (01) ==
LOC: C.LAB 15:15
PROVIDERS: ATTEND Internal Medicine Geriatric Medicine
DX: I10 Essential (primary) hypertension (principal); E78.5 Hyperlipidemia, unspecified; M19.90 Unspecified osteoarthritis, unspecified site; E03.9 Hypothyroidism, unspecified; F41.8 Other specified anxiety disorders; K76.0 Fatty (change of) liver, not elsewhere classified; Z68.41 Body mass index [BMI] 40.0-44.9, adult

== ENCOUNTER 2022-11-28 15:14 | Inpatient (IN) ==
[2022-11-28] MEDS ORDERED: SODIUM CHLORIDE 0.9% 500 ML IV STA (15:32)
[2022-11-28] MEDS ORDERED: ONDANSETRON INJ 2 MG/ML 2 ML VIAL IV STA (15:32)
--- NOTE | 2022-11-28 15:43 | Electrocardiogram Report ---
Test Reason : Blood Pressure : / mmHG Vent. Rate : 097 BPM Atrial Rate : 097 BPM P-R Int : 156 ms QRS Dur : 096 ms QT Int : 326 ms P-R-T Axes : 013 -20 113 degrees QTc Int : 414 ms Sinus rhythm with Premature supraventricular complexes Left ventricular hypertrophy with repolarization abnormality ( R in aVL ) Abnormal ECG When compared with ECG of 26-NOV-2015 01:31, Premature supraventricular complexes are now Present Questionable change in QRS duration Confirmed by Boris Llanes ([id number]) on 11/28/2022 3:43:02 PM Referred By: Confirmed By:Boris Llanes
[2022-11-28 16:01] LABS: Basophils # (auto) 0.12 K/uL (0-0.2); Basophils % (auto) 0.6 %; Eosinophils # (auto) 0.03 K/uL (0-0.50); Eosinophils % (auto) 0.2 %; Hematocrit (blood only) 42.2 % (37.0-47.0); Hemoglobin 14.9 g/dl (12.0-16.0); Immature Granulocytes # (auto) 0.14 K/uL (0.01-0.20); Immature Granulocytes % (auto) 0.8 %; Lymphocytes # (auto) 0.94 K/uL (1.2-3.4); Lymphocytes % (auto) 5.1 %; Mean Corpuscular Hemoglobin 30.5 pg (25.0-34.0); Mean Corpuscular Hgb Conc 35.3 g/dL (32.0-36.0); Mean Corpuscular Volume 86.5 fL (80.0-100.0); Mean Platelet Volume 10.2 fL (9.4-12.4); Monocytes # (auto) 1.22 K/uL (0.11-0.59); Monocytes % (auto) 6.6 %; Neutrophils # (auto) 16.02 K/uL (1.40-6.50); Neutrophils % (auto) 86.7 %; Platelet Count 210 K/uL (130-400); RDW Coefficient of Variation 13.2 % (11.5-14.5); RDW Standard Deviation 41.6 fL (36.4-46.3); Red Blood Count 4.88 M/uL (4.20-5.40); White Blood Count 18.47 K/ul (4.8-10.8)
--- NOTE | 2022-11-28 16:03 | Emergency Department Note ---
Impression & Plan Urinary tract infection, Heart murmur, Elevated troponin I level, Weakness, Edema, peripheral, Hypoxia ED Provider Note NAME: STERLING BARBA AGE: 87 SEX: F : 1935 ARRIVES VIA: Walk-In INFORMANT: Patient, ED PROVIDER(S): Boris Rogers DO CHIEF COMPLAINT: Weakness HPI: The patient is an 87-year-old female who presented to the emergency department for an evaluation of difficulty breathing. The patient has been noticing difficulty breathing and generalized weakness over the course of the last few weeks. She states he also notices lower extremity swelling and this occurred over the last few days. She was not seen by her family doctor recently for the symptoms. She denies having any chest pain. She does complain of shortness of breath with exertion. Family reports a fever but the patient denies this. She is also noticed nausea and vomiting. ROS: See above HPI for pertinent positives & negatives. A total of 10 systems reviewed and were otherwise negative. PAST MEDICAL HISTORY: See Below PAST SURGICAL HISTORY: See Below FAMILY HISTORY: See Below SOCIAL HISTORY: See Below HOME MEDICATIONS: See Below ALLERGIES: See Below VITALS: See Below PHYSICAL EXAMINATION: GENERAL: Patient is awake alert in no acute distress patient is resting comfortably and showing no signs of anxiety EYES: The conjunctivae are clear. The pupils are round and reactive. EARS, NOSE, MOUTH AND THROAT: The nose is without any evidence of any deformity. Mucous membranes are moist. Tongue is midline. NECK: The neck is nontender and supple. RESPIRATORY: Diminished breath sounds are noted throughout. There is no tachypnea or conversational dyspnea. CARDIOVASCULAR: Ectopy was noted to auscultation. Systolic murmur was suggested. GASTROINTESTINAL: The abdomen is soft. Abdomen is nontender. MUSCULOSKELETAL/EXTREMITIES: There is no evidence of gross deformity full range of motion is noted in the hips and shoulders. SKIN: The skin is warm and dry. Pedal edema was noted bilaterally. NEUROLOGIC: Patient is awake alert and oriented x3 MEDICAL DECISION MAKING: The patient is an 87-year-old female who presented to the emergency department with multiple complaints. The patient presented with family members. She was complaining of lower extremity swelling which have been ongoing. The patient was hypoxic on multiple occasions. She has an EKG which shows some changes compared to previous. She has a heart murmur which she states was not present previously. I discussed the patient's laboratory and radiographic studies with her. She was found to have an elevation in her white blood cell count. Further studies were obtained to find infectious source. She was treated with empiric antibiotics. I discussed the patient's condition with the on-call [facility] hospitalist. They have agreed to evaluate the patient in the emergency department for further management and disposition. Triage Nursing notes reviewed. Prior medical records reviewed Vital Signs: reviewed and remarkable for hypoxia Differential diagnosis: Reactive airway disease, pneumonia, pneumothorax, COPD, CHF, infections, cardiac ischemia, pulmonary embolism, musculoskeletal, gastrointestinal, as well as other pathologies. ER treatment provided: See below Diagnostics interpreted by me: ECG: EKG was obtained in the emergency department. My interpretation is sinus rhythm at 97 bpm. PVCs were noted. LVH was suggested by voltage criteria with incomplete left bundle branch block. This was compared to a tracing from November 26, 2015. Significant changes were noted. Cardiac Monitoring: An order was placed for continuous cardiac monitoring. The monitor shows a rate of 77 bpm with sinus rhythm. Laboratory studies: As stated above and show below. Imaging studies: See below. Radiographic imaging was reviewed by myself Consultation(s): I discussed this case with Dr. Browning who is on-call for the [facility]. 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 Chronic osteoarthritis Colitis Cyst of kidney, acquired Cyst of pancreas Depression with anxiety Diverticular disease Fatty liver GERD (gastroesophageal reflux disease) History of cholecystitis HTN (hypertension) Hyperlipemia Hypothyroidism Lower extremity edema Migraine Morbid obesity with BMI of 45.0-49.9, adult Obstructive sleep apnea cpap Self-catheterizes urinary bladder in the am and at night d/t ureters being cut during hysterectomy--pt states she can still void as well Surgical History H/O colonoscopy with polypectomy H/O: hysterectomy ONEIL BSO ~pt states she had the surgery done at 1974 @ [facility] – [place], pt states that "they accidentally cut my kidney tubes and I have to catherize myself every day twice a day since then" History of appendectomy History of bilateral cataract extraction History of detached retina repair right History of dilatation and curettage History of esophagogastroduodenoscopy (EGD) History of knee replacement procedure of right knee (~2006) History of lumbar spinal fusion History of sinus surgery History of tooth extraction all teeth Family History Son Colorectal cancer Hypertension Mother Ovarian cancer Diabetes Grandmother (Paternal) Hypertension Grandmother (Maternal) Heart disease Stroke Son Family hx colonic polyps Son Family hx colonic polyps Other No family history of adverse response to anesthesia Denies family history of Prostate cancer Myocardial infarction Breast cancer Social History Smoking Status: Never smoker Second Hand Exposure: No; Do You Dip or Chew Tobacco: No; Tobacco Cessation Education Requested by Patient: No Hx Alcohol Use: No Hx Substance Use: No Preferred Language: Marshallese Communication Ability: Effective Visual Impairment: No Limitations Hearing Ability: Normal Slot Manager Required: No Beliefs That Will Affect Care: None marital status: Current Living Situation: Spouse current occupational status: retired How many Children do You have: 5 Other Information That Helps Us Care for You: Yes Feels Safe at Home: Yes Safety Concerns: Feels Safe At This Time Childhood Exposure to Second-Hand Smoke: Yes caffeine: Yes Dental Care, Regularly: No Physical Activity Frequency: 1-2 Times per Week Seatbelt Use: always Sunscreen Use: Yes Assistive Devices: Walker Allergies Allergies Allergy/AdvReac Type Severity Reaction Status Date / Time atorvastatin Allergy Severe WHEEZING/RESP Verified 11/28/22 17:06 DIFFICULTY ciprofloxacin Allergy Severe SHORT OF Verified 11/28/22 17:06 BREATH/RASH amoxicillin Allergy Intermediate Hives Verified 11/28/22 17:06 Iodinated Contrast Media Allergy Intermediate HIVES Verified 11/28/22 17:06 iodine Allergy Intermediate Hives Verified 11/28/22 17:06 Sulfa (Sulfonamide Allergy Intermediate SHORT OF Verified 11/28/22 17:06 Antibiotics) BREATH/RASH escitalopram Allergy Unknown UNKNOWN Verified 11/28/22 17:06 PER [facility] MED LIST niacin Allergy Unknown UNKNOWN Verified 11/28/22 17:06 PER [facility] MED LIST lisinopril AdvReac Intermediate Gastrointestinal Verified 11/28/22 17:06 Upset Home Meds Home Medications Medication Instructions Recorded Confirmed ascorbic acid (vitamin C) 1,000 mg 1 g PO QAM 02/24/20 11/28/22 tablet (Vitamin C) aspirin 81 mg tablet,delayed 81 mg PO DAILY 11/28/22 11/28/22 release clonazepam 1 mg tablet 1 mg PO HS 11/28/22 11/28/22 cyanocobalamin (vitamin B-12) 250 250 mcg PO DAILY 11/28/22 11/28/22 mcg tablet (Vitamin B-12) escitalopram oxalate 10 mg tablet 10 mg PO DAILY 11/28/22 11/28/22 furosemide 20 mg tablet (Lasix) 20 mg PO BID 11/28/22 11/28/22 levothyroxine 112 mcg tablet 112 mcg PO DAILYBB 11/28/22 11/28/22 losartan 25 mg tablet 25 mg PO DAILY 11/28/22 11/28/22 meloxicam 7.5 mg tablet 7.5 mg PO QAM 11/28/22 11/28/22 omega 5-txi-tnl-fish oil 1,000 mg 1 cap PO QAM 11/28/22 11/28/22 (120 mg-180 mg) capsule (Fish Oil) oxybutynin chloride 5 mg 5 mg PO QAM 11/28/22 11/28/22 tablet,extended release 24 hr vitamin E 268 mg (400 unit) capsule 268 mg PO DAILY 11/28/22 11/28/22 Previous Rx's Medication Instructions Recorded CPAP Machine #1 ea 06/30/19 compr.stocking,knee,long,x-lrg #2 ea 05/10/20 Results & Data (ED) Vital Signs Vital Signs - 24 hr 11/28/22 15:18 11/28/22 15:51 11/28/22 15:55 Temperature 37.2 C Temperature Source Temporal Artery Scan Pulse Rate 95 H 94 H Pulse Rate [Apical] Pulse Rate from SpO2 Sensor Pulse Rhythm [Apical] Respiratory Rate 16 Respiratory Effort / Characteristics Non-Labored Spontaneous Respiratory Depth Normal Blood Pressure 132/98 Blood Pressure [Left Arm] Blood Pressure Mean 109 Blood Pressure Mean [Left Arm] Pulse Oximetry 93 87 L Oxygen Delivery Method Room Air Room Air Oxygen Flow Rate Sepsis Recent Fever Within 48 Hours No Sepsis New/Unexplained Change in Mental Status N/A Sepsis Action Taken by Nursing No Action Required Pulse Oximetry Post Tiitration 11/28/22 15:59 11/28/22 17:30 11/28/22 17:10 Temperature Temperature Source Pulse Rate 80 Pulse Rate [Apical] 79 Pulse Rate from SpO2 Sensor Pulse Rhythm [Apical] Regular Respiratory Rate 16 17 Respiratory Effort / Characteristics Non-Labored Respiratory Depth Normal Blood Pressure 163/70 H Blood Pressure [Left Arm] 174/73 H Blood Pressure Mean 101 Blood Pressure Mean [Left Arm] 106 Pulse Oximetry 96 94 Oxygen Delivery Method Nasal Cannula Nasal Cannula Room Air Oxygen Flow Rate 2 2 Sepsis Recent Fever Within 48 Hours Sepsis New/Unexplained Change in Mental Status Sepsis Action Taken by Nursing Pulse Oximetry Post Tiitration 94 11/28/22 17:31 11/28/22 18:01 11/28/22 18:30 Temperature Temperature Source Pulse Rate 80 95 H Pulse Rate [Apical] Pulse Rate from SpO2 Sensor Pulse Rhythm [Apical] Respiratory Rate 15 15 19 Respiratory Effort / Characteristics Respiratory Depth Blood Pressure 174/73 H 109/75 129/55 L Blood Pressure [Left Arm] Blood Pressure Mean 106 86 79 Blood Pressure Mean [Left Arm] Pulse Oximetry 95 Oxygen Delivery Method Room Air Oxygen Flow Rate Sepsis Recent Fever Within 48 Hours Sepsis New/Unexplained Change in Mental Status Sepsis Action Taken by Nursing Pulse Oximetry Post Tiitration 11/28/22 19:51 11/28/22 19:30 11/28/22 20:00 Temperature Temperature Source Pulse Rate 77 80 80 Pulse Rate [Apical] Pulse Rate from SpO2 Sensor 77 80 Pulse Rhythm [Apical] Respiratory Rate 20 22 Respiratory Effort / Characteristics Respiratory Depth Blood Pressure Blood Pressure [Left Arm] Blood Pressure Mean Blood Pressure Mean [Left Arm] Pulse Oximetry 93 94 Oxygen Delivery Method Oxygen Flow Rate Sepsis Recent Fever Within 48 Hours Sepsis New/Unexplained Change in Mental Status Sepsis Action Taken by Nursing Pulse Oximetry Post Tiitration 11/28/22 20:30 11/28/22 20:31 11/28/22 20:31 Temperature Temperature Source Pulse Rate 75 78 Pulse Rate [Apical] Pulse Rate from SpO2 Sensor 74 Pulse Rhythm [Apical] Respiratory Rate 17 14 Respiratory Effort / Characteristics Respiratory Depth Blood Pressure 102/55 L Blood Pressure [Left Arm] Blood Pressure Mean 70 Blood Pressure Mean [Left Arm] Pulse Oximetry 95 Oxygen Delivery Method Oxygen Flow Rate Sepsis Recent Fever Within 48 Hours Sepsis New/Unexplained Change in Mental Status Sepsis Action Taken by Nursing Pulse Oximetry Post Tiitration 11/28/22 21:00 11/28/22 21:01 11/28/22 21:01 Temperature Temperature Source Pulse Rate 81 74 Pulse Rate [Apical] Pulse Rate from SpO2 Sensor 81 83 Pulse Rhythm [Apical] Respiratory Rate 26 H 17 Respiratory Effort / Characteristics Respiratory Depth Blood Pressure 156/108 H Blood Pressure [Left Arm] Blood Pressure Mean 124 Blood Pressure Mean [Left Arm] Pulse Oximetry 95 92 Oxygen Delivery Method Oxygen Flow Rate Sepsis Recent Fever Within 48 Hours Sepsis New/Unexplained Change in Mental Status Sepsis Action Taken by Nursing Pulse Oximetry Post Tiitration 11/28/22 21:30 11/28/22 21:31 11/28/22 22:00 Temperature Temperature Source Pulse Rate 75 69 Pulse Rate [Apical] Pulse Rate from SpO2 Sensor 73 69 Pulse Rhythm [Apical] Respiratory Rate 23 16 Respiratory Effort / Characteristics Respiratory Depth Blood Pressure 147/88 H Blood Pressure [Left Arm] Blood Pressure Mean 107 Blood Pressure Mean [Left Arm] Pulse Oximetry 94 97 Oxygen Delivery Method Nasal Cannula Oxygen Flow Rate 2 Sepsis Recent Fever Within 48 Hours Sepsis New/Unexplained Change in Mental Status Sepsis Action Taken by Nursing Pulse Oximetry Post Tiitration 11/28/22 22:01 Temperature Temperature Source Pulse Rate Pulse Rate [Apical] Pulse Rate from SpO2 Sensor Pulse Rhythm [Apical] Respiratory Rate Respiratory Effort / Characteristics Respiratory Depth Blood Pressure 137/96 Blood Pressure [Left Arm] Blood Pressure Mean 109 Blood Pressure Mean [Left Arm] Pulse Oximetry Oxygen Delivery Method Oxygen Flow Rate Sepsis Recent Fever Within 48 Hours Sepsis New/Unexplained Change in Mental Status Sepsis Action Taken by Nursing Pulse Oximetry Post Tiitration Home Medications Current Medication List: was personally reviewed by me Laboratory Data Attestation: I reviewed the patient's lab results. 11/28/22 15:40 11/28/22 15:40 Lab Results 11/28/22 11/28/22 11/28/22 Range/Units 15:40 15:40 15:40 WBC 18.47 H (4.8-10.8) K/ul RBC 4.88 (4.20-5.40) M/uL Hgb 14.9 (12.0-16.0) g/dl Hct 42.2 (37.0-47.0) % MCV 86.5 (80.0-100.0) fL MCH 30.5 (25.0-34.0) pg MCHC 35.3 (32.0-36.0) g/dL RDW Std Deviation 41.6 (36.4-46.3) fL RDW Coeff of Ta 13.2 (11.5-14.5) % Plt Count 210 (130-400) K/uL MPV 10.2 (9.4-12.4) fL Immature Gran % (Auto) 0.8 % Neut % (Auto) 86.7 % Lymph % (Auto) 5.1 % [place] % (Auto) 6.6 % Eos % (Auto) 0.2 % Baso % (Auto) 0.6 % Neut # (Auto) 16.02 H (1.40-6.50) K/uL Lymph # (Auto) 0.94 L (1.2-3.4) K/uL [place] # (Auto) 1.22 H (0.11-0.59) K/uL Eos # (Auto) 0.03 (0-0.50) K/uL Baso # (Auto) 0.12 (0-0.2) K/uL Immature Gran # (Auto) 0.14 (0.01-0.20) K/uL PT 11.4 (9.0-12.0) Seconds INR 1.0 (0.9-1.1) APTT 33.8 H (21.0-31.0) Seconds PTT Ratio 1.2 Sodium 138 (136-145) mmol/L Potassium 4.0 (3.5-5.1) mmol/L Chloride 104 (98-107) mmol/L Carbon Dioxide 24 (21-32) mmol/L Anion Gap 10 (3-11) BUN 16 (6-23) mg/dl Creatinine 0.80 (0.6-1.2) mg/dl Est Cr Clr Drug Dosing Not Reportable Est GFR ( Amer) 75.8 ml/min Est GFR (Non-Af Amer) 65.4 ml/min BUN/Creatinine Ratio 20.0 (10-20) Glucose 107 H (70-99(Fasting)) mg/dl Calcium 9.9 (8.6-10.3) mg/dl Total Bilirubin 1.0 (0.2-1.0) mg/dl AST 19 (13-39) U/L ALT 17 (7-52) U/L Alkaline Phosphatase 56 (34-104) U/L Troponin I High Sens 25.0 H (0-14) pg/ml C-Reactive Protein 1.17 H (0-0.5) mg/dl B-Natriuretic Peptide (0-100) pg/ml Total Protein 7.2 (6.0-8.3) gm/dl Albumin 4.1 (3.4-5.0) gm/dl Globulin 3.1 (2.5-4.0) gm/dl Albumin/Globulin Ratio 1.3 (0.9-2) Procalcitonin (0-0.5) ng/ml Urine Color Urine Appearance (Clear) Urine pH (4.5-7.5) Ur Specific Sellers (1.000-1.030) Urine Protein (Negative) Urine Glucose (UA) (Negative) Urine Ketones (Negative) Urine Blood (Negative) Urine Nitrite (Negative) Urine Bilirubin (Negative) Urine Urobilinogen (Negative) Ur Leukocyte Esterase (Negative) Urine WBC (Auto) (0-5) /hpf Urine RBC (Auto) (0-4) /hpf U Hyaline Cast (Auto) (0-5) /lpf U Epithel Cells (Auto) (0-5) /lpf Urine Bacteria (Auto) (Negative) Anaplasma Smear Babesia Smear Lyme Disease IgG Ab (Negative) Lyme Disease IgM Ab (Negative) SARS-CoV-2, RNA, NAAT (NEGATIVE) 11/28/22 11/28/22 11/28/22 Range/Units 15:40 15:40 15:40 WBC (4.8-10.8) K/ul RBC (4.20-5.40) M/uL Hgb (12.0-16.0) g/dl Hct (37.0-47.0) % MCV (80.0-100.0) fL MCH (25.0-34.0) pg MCHC (32.0-36.0) g/dL RDW Std Deviation (36.4-46.3) fL RDW Coeff of Ta (11.5-14.5) % Plt Count (130-400) K/uL MPV (9.4-12.4) fL Immature Gran % (Auto) % Neut % (Auto) % Lymph % (Auto) % [place] % (Auto) % Eos % (Auto) % Baso % (Auto) % Neut # (Auto) (1.40-6.50) K/uL Lymph # (Auto) (1.2-3.4) K/uL [place] # (Auto) (0.11-0.59) K/uL Eos # (Auto) (0-0.50) K/uL Baso # (Auto) (0-0.2) K/uL Immature Gran # (Auto) (0.01-0.20) K/uL PT (9.0-12.0) Seconds INR (0.9-1.1) APTT (21.0-31.0) Seconds PTT Ratio Sodium (136-145) mmol/L Potassium (3.5-5.1) mmol/L Chloride (98-107) mmol/L Carbon Dioxide (21-32) mmol/L Anion Gap (3-11) BUN (6-23) mg/dl Creatinine (0.6-1.2) mg/dl Est Cr Clr Drug Dosing Est GFR ( Amer) ml/min Est GFR (Non-Af Amer) ml/min BUN/Creatinine Ratio (10-20) Glucose (70-99(Fasting)) mg/dl Calcium (8.6-10.3) mg/dl Total Bilirubin (0.2-1.0) mg/dl AST (13-39) U/L ALT (7-52) U/L Alkaline Phosphatase (34-104) U/L Troponin I High Sens (0-14) pg/ml C-Reactive Protein (0-0.5) mg/dl B-Natriuretic Peptide (0-100) pg/ml Total Protein (6.0-8.3) gm/dl Albumin (3.4-5.0) gm/dl Globulin (2.5-4.0) gm/dl Albumin/Globulin Ratio (0.9-2) Procalcitonin 0.09 Cancelled (0-0.5) ng/ml Urine Color Urine Appearance (Clear) Urine pH (4.5-7.5) Ur Specific Sellers (1.000-1.030) Urine Protein (Negative) Urine Glucose (UA) (Negative) Urine Ketones (Negative) Urine Blood (Negative) Urine Nitrite (Negative) Urine Bilirubin (Negative) Urine Urobilinogen (Negative) Ur Leukocyte Esterase (Negative) Urine WBC (Auto) (0-5) /hpf Urine RBC (Auto) (0-4) /hpf U Hyaline Cast (Auto) (0-5) /lpf U Epithel Cells (Auto) (0-5) /lpf Urine Bacteria (Auto) (Negative) Anaplasma Smear See Comment Babesia Smear See Comment Lyme Disease IgG Ab Negative (Negative) Lyme Disease IgM Ab Negative (Negative) SARS-CoV-2, RNA, NAAT (NEGATIVE) 11/28/22 11/28/22 11/28/22 Range/Units 16:11 19:26 20:54 WBC (4.8-10.8) K/ul RBC (4.20-5.40) M/uL Hgb (12.0-16.0) g/dl Hct (37.0-47.0) % MCV (80.0-100.0) fL MCH (25.0-34.0) pg MCHC (32.0-36.0) g/dL RDW Std Deviation (36.4-46.3) fL RDW Coeff of Ta (11.5-14.5) % Plt Count (130-400) K/uL MPV (9.4-12.4) fL Immature Gran % (Auto) % Neut % (Auto) % Lymph % (Auto) % [place] % (Auto) % Eos % (Auto) % Baso % (Auto) % Neut # (Auto) (1.40-6.50) K/uL Lymph # (Auto) (1.2-3.4) K/uL [place] # (Auto) (0.11-0.59) K/uL Eos # (Auto) (0-0.50) K/uL Baso # (Auto) (0-0.2) K/uL Immature Gran # (Auto) (0.01-0.20) K/uL PT (9.0-12.0) Seconds INR (0.9-1.1) APTT (21.0-31.0) Seconds PTT Ratio Sodium (136-145) mmol/L Potassium (3.5-5.1) mmol/L Chloride (98-107) mmol/L Carbon Dioxide (21-32) mmol/L Anion Gap (3-11) BUN (6-23) mg/dl Creatinine (0.6-1.2) mg/dl Est Cr Clr Drug Dosing Est GFR ( Amer) ml/min Est GFR (Non-Af Amer) ml/min BUN/Creatinine Ratio (10-20) Glucose (70-99(Fasting)) mg/dl Calcium (8.6-10.3) mg/dl Total Bilirubin (0.2-1.0) mg/dl AST (13-39) U/L ALT (7-52) U/L Alkaline Phosphatase (34-104) U/L Troponin I High Sens (0-14) pg/ml C-Reactive Protein (0-0.5) mg/dl B-Natriuretic Peptide 124 H (0-100) pg/ml Total Protein (6.0-8.3) gm/dl Albumin (3.4-5.0) gm/dl Globulin (2.5-4.0) gm/dl Albumin/Globulin Ratio (0.9-2) Procalcitonin (0-0.5) ng/ml Urine Color Dark Yellow Urine Appearance Clear (Clear) Urine pH >= 9.0 H (4.5-7.5) Ur Specific Sellers 1.018 (1.000-1.030) Urine Protein Negative (Negative) Urine Glucose (UA) Negative (Negative) Urine Ketones Negative (Negative) Urine Blood Negative (Negative) Urine Nitrite Negative (Negative) Urine Bilirubin Negative (Negative) Urine Urobilinogen Negative (Negative) Ur Leukocyte Esterase Trace H (Negative) Urine WBC (Auto) 1-5 (0-5) /hpf Urine RBC (Auto) 0-4 (0-4) /hpf U Hyaline Cast (Auto) 1-5 (0-5) /lpf U Epithel Cells (Auto) 10-20 H (0-5) /lpf Urine Bacteria (Auto) 3+ H (Negative) Anaplasma Smear Babesia Smear Lyme Disease IgG Ab (Negative) Lyme Disease IgM Ab (Negative) SARS-CoV-2, RNA, NAAT NEGATIVE (NEGATIVE) Administered Medications Clonazepam (Clonazepam 1 Mg Tab) 1 mg PO HS CASTILLO Stop: 12/29/22 00:14 Last Admin: 11/29/22 00:34 Dose: 1 mg Documented By: DEWAYNE Levothyroxine Sodium (Levothyroxine Sodium 112 Mcg Tablet) 112 mcg PO DAILYBB CASTILLO Stop: 12/29/22 06:29 Last Admin: 11/29/22 05:53 Dose: 112 mcg Documented By: ABL Discontinued Medications Acetaminophen (Acetaminophen 500 Mg Tab) 1,000 mg PO NOW STA Stop: 11/28/22 17:37 Last Admin: 11/28/22 17:40 Dose: 1,000 mg Documented By: LUIS ENRIQUE Albuterol (Albut/Ipratrop 3mg/0.5mg Neb 3 Ml Vial) 3 ml NEB NOW STA; Protocol Stop: 11/28/22 21:43 Last Admin: 11/28/22 23:51 Dose: 3 ml Documented By: CHEN Albuterol (Albut/Ipratrop 3mg/0.5mg Neb 3 Ml Vial) Confirm Administered Dose 3 ml .ROUTE .STK-MED ONE Stop: 11/28/22 23:50 Last Admin: 11/28/22 23:51 Dose: Not Given Documented By: CHEN Diphenhydramine HCl (Diphenhydramine 50 Mg/Ml Vial) 25 mg IV NOW STA Stop: 11/28/22 22:22 Last Admin: 11/28/22 22:45 Dose: 25 mg Documented By: AMBROSE Diphenhydramine HCl (Diphenhydramine 50 Mg/Ml Vial) Confirm Administered Dose 50 mg .ROUTE .STK-MED ONE Stop: 11/28/22 22:23 Last Admin: 11/28/22 22:45 Dose: Not Given Documented By: AMBROSE Furosemide (Furosemide 40 Mg/4 Ml Vial) 40 mg IV ONE ONE Stop: 11/28/22 21:42 Last Admin: 11/28/22 22:45 Dose: 40 mg Documented By: AMBROSE Sodium Chloride (Nss) 500 mls @ 999 mls/hr IV .Q31M STA Stop: 11/28/22 16:02 Last Infusion: 11/28/22 16:34 Dose: 0 mls/hr Documented By: Admin: 11/28/22 15:38 Dose: 999 mls/hr Documented By: BEATRIZ Ceftriaxone Sodium (Rocephin) 2,000 mg in 70 mls @ 140 mls/hr IV NOW STA Stop: 11/28/22 20:56 Last Infusion: 11/28/22 21:19 Dose: 0 mls/hr Documented By: Admin: 11/28/22 20:49 Dose: 140 mls/hr Documented By: KATIE Doxycycline Hyclate 100 mg/ (Dextrose) 110 mls @ 50 mls/hr IV NOW STA Stop: 11/28/22 23:52 Last Infusion: 11/29/22 01:49 Dose: 0 mls/hr Documented By: Admin: 11/28/22 23:37 Dose: 50 mls/hr Documented By: ABL Albumin Human (Albumin 25%) 25 gm in 100 mls @ 50 mls/hr IV ONE ONE Stop: 11/29/22 02:01 Last Infusion: 11/29/22 02:33 Dose: 0 mls/hr Documented By: Admin: 11/29/22 00:33 Dose: 50 mls/hr Documented By: ABL Magnesium Sulfate/Dextrose (Magnesium Sulfate / D5w) 1 gm in 100 mls @ 50 mls/hr IV ONE ONE Stop: 11/29/22 03:23 Last Infusion: 11/29/22 04:22 Dose: 0 mls/hr Documented By: Admin: 11/29/22 02:22 Dose: 50 mls/hr Documented By: ABL Ioversol (Optiray 320 125ml) 125 ml IV ONCE ONE Stop: 11/28/22 23:15 Last Admin: 11/28/22 23:15 Dose: 117 ml Documented By: FLYNN Methylprednisolone (Methylprednisolone 40 Mg/Ml Vial) 40 mg IV NOW STA Stop: 11/28/22 21:53 Last Admin: 11/28/22 22:45 Dose: 40 mg Documented By: AMBROSE Ondansetron HCl (Ondansetron Inj 2 Mg/Ml 2 Ml Vial) 4 mg IV NOW STA Stop: 11/28/22 15:33 Last Admin: 11/28/22 15:38 Dose: 4 mg Documented By: BEATRIZ Imaging Data Attestation: I personally reviewed and interpreted this imaging study as follows : My Impression: 1 view chest x-ray was obtained in the emergency department. My interpretation is no free air or definite infiltrate, final report below. Radiologist's Impression: Chest CTA 11/28/22 21:43 Exam(s): CTA CHEST IV Amt: 117 ML OPTIRAY 320 EXAM: CT Angiography Chest With Intravenous Contrast CLINICAL HISTORY: Reason for exam: sob. TECHNIQUE: Axial computed tomographic angiography images of the chest with intravenous contrast. CTDI is 28.14 mGy and DLP is 859.56 mGy-cm. Automated exposure control was utilized for the study. A dose lowering technique was utilized adhering to the principles of ALARA. MIP reconstructed images were created and reviewed. COMPARISON: No relevant prior studies available. FINDINGS: Pulmonary arteries: Unremarkable. No CT evidence of pulmonary embolism. Aorta: No acute findings. No thoracic aortic aneurysm. Lungs: 0.5 cm pulmonary nodule in the right middle lobe adjacent to the minor fissure. Pleural space: Unremarkable. No significant effusion. No pneumothorax. Heart: Unremarkable. No cardiomegaly. No significant pericardial effusion. No evidence of RV dysfunction. Bones/joints: No acute fracture. No dislocation. Soft tissues: 2.1 cm simple cyst arising off the upper pole of the left kidney. No further workup is required. Lymph nodes: Unremarkable. No enlarged lymph nodes. IMPRESSION: No CT evidence of pulmonary embolism. Electronically signed by: Luis E Cosme M.D. 11/28/22 23:59 PM Discharge Plan Visit Data Chief Complaint: Illness Stated Complaint: CHILLS,FEVER,CONFUSION ED Provider: Boris Rogers Discharge Problem: Urinary tract infection, Heart murmur, Elevated troponin I level, Weakness, Edema, peripheral, Hypoxia Patient Disposition: Admitted As Inpatient Discharge Instructions Interventions: ED Discharge Assessment Last Done: 11/28/22 23:13 Urinary tract infection Qualifiers: Urinary tract infection type: site unspecified Hematuria presence: without hematuria Qualified Code(s): N39.0 - Urinary tract infection, site not specified
[2022-11-28 16:19] LABS: Alanine Aminotransferase 17 U/L (7-52); Albumin Globulin Ratio 1.3 (0.9-2); Albumin Level 4.1 gm/dl (3.4-5.0); Alkaline Phosphatase 56 U/L (34-104); Anion Gap 10 (3-11); Aspartate Aminotransferase 19 U/L (13-39); Blood Urea Nitrogen 16 mg/dl (6-23); Calcium 9.9 mg/dl (8.6-10.3); Carbon Dioxide 24 mmol/L (21-32); Chloride 104 mmol/L (98-107); Est GFR (African American) 75.8 ml/min; Est GFR (Non-African American) 65.4 ml/min; Globulin 3.1 gm/dl (2.5-4.0); Glucose 107 mg/dl (70-99(Fasting)); Sodium 138 mmol/L (136-145); Total Protein 7.2 gm/dl (6.0-8.3)
[2022-11-28 16:24] LABS: Partial Thromboplastin Ratio 1.2; Partial Thromboplastin Time 33.8 Seconds (21.0-31.0); Prothrombin Time 11.4 Seconds (9.0-12.0)
[2022-11-28] MEDS ORDERED: ACETAMINOPHEN 500 MG TAB PO STA (17:36)
[2022-11-28 18:03] LABS: C Reactive Protein 1.17 mg/dl (0-0.5)
--- NOTE | 2022-11-28 18:13 | XRay Report ---
SINGLE VIEW CHEST CLINICAL HISTORY: Dyspnea. FINDINGS: An AP, portable, upright chest radiograph is compared to study dated 11/25/2022. Correlation is made with chest CT dated 07/04/2017. The examination is degraded by portable technique and apical lordotic positioning. The heart is enlarged noting atherosclerotic calcification of the thoracic aort a. The pulmonary vasculature is noncongested. Chronic interstitial thickening is similar to previous. The lungs and pleural spaces are clear. No pneumothorax is seen. The skeletal structures are osteope ap. The bony thorax is grossly intact. Cholecystectomy clips are seen in the right upper quadrant. IMPRESSION: No acute cardiopulmonary abnormality. ACT 112: Negative or not required by law. Electronically signed by: Meet Zhang M.D. 11/28/2022 6:11 PM
[2022-11-28 18:59] LABS: Procalcitonin 0.09 ng/ml (0-0.5)
[2022-11-28 19:05] LABS: Lyme Ab IgG w/WB Rflx Negative (Negative); Lyme Ab IgM w/WB Rflx Negative (Negative)
[2022-11-28 19:45] LABS: Appearance Urine Clear (Clear); Bacteria Urine Automated 3+ (Negative); Bilirubin Urine Negative (Negative); Blood Urine Negative (Negative); Color Urine Dark Yellow; Glucose Urine UA Negative (Negative); Ketones Urine Negative (Negative); Leukocyte Esterase Urine Trace (Negative); Nitrite Urine Negative (Negative); Protein Urine Negative (Negative); Specific Gravity Urine 1.018 (1.000-1.030); Urobilinogen Urine Negative (Negative); pH Urine >= 9.0 (4.5-7.5)
[2022-11-28 20:16] LABS: RBC Urine Automated 0-4 /hpf (0-4)
[2022-11-28] MEDS ORDERED: cefTRIAXone SODIUM 2,000 MG/70 ML BAG IV STA (20:27)
[2022-11-28] MEDS ORDERED: DOXYCYCLINE HYCLATE 100 MG in DEXTROSE 5% 100 ML IV STA (21:41)
[2022-11-28] MEDS ORDERED: FUROSEMIDE 40 MG/4 ML VIAL IV ONE (21:41)
[2022-11-28] MEDS ORDERED: methylPREDNISolone 40 MG in SYRINGE 0 ML IV STA (21:42)
[2022-11-28] MEDS ORDERED: ALBUT/IPRATROP 3MG/0.5MG NEB 3 ML VIAL NEB STA (21:42)
--- NOTE | 2022-11-28 21:44 | History & Physical Report ---
Date of Service November 28, 2022 Assessment & Plan (1) Acute hypoxemic respiratory failure: Plan: Possible right-sided heart failure given abnormal BNP and absence of overt congestion on CXR possible pulmonary hypertension hx ELLI, off CPAP since last year due to device recall LLE cellulitis, no overt sepsis for now hypertension, stable hyperlipidemia, statin intolerance hypothyroidism, euthyroid as of today's TSH anxiety/mood disorder, at baseline PCU Supplemental O2 Baseline ABG Diuretic Rx strict I/Os, daily weights, CHF education, fluid restriction for now TTE, Cardiology consult (Dr. Llanes as per patient's request) Re: Possible CHF, possible underlying pulm hypertension Outpatient follow-up with Sleep medicine Doxycycline for cellulitis DVT prophylaxis. Lovenox subcu Full code Patient son requesting updates providers. Mr. Nain Trejo, contact #[phone]. Total critical time was 40 minutes. Text document was generated using [employer] voice recognition software. It may contain grammatical or spelling errors. Kindly contact undersigned for clarification of any documentation item in question. History of Present Illness Chief Complaint: Worsening shortness of breath, edema Primary Care Provider: Leia Torres MD History obtained from patient, family, and records. Medical history significant for hypertension, hyperlipidemia, GERD, NAFLD, hypothyroidism, ELLI (not currently on CPAP due to device recall), anxiety/mood disorder. Last confinement 2016 for acute diverticulitis with microperforation. No surgical intervention. 3 weeks history of worsening bilateral leg swelling, easy fatigability. Patient initially without shortness of breath symptoms. Patient advised by PCP to increase home diuretic dose. Outpatient blood work showed abnormal D-dimer. Patient sent for venous leg Dopplers and outpatient CT chest. Patient consulted ER 3 days ago for worsening leg swelling. LE venous Doppler showed left-sided Ring's cyst without DVT. Patient advised to increase home Lasix dose from 20 mg to 40 mg daily. Worsening symptoms despite compliance with instructions. Low-grade fever at home as per family. Legs weeping with some redness on the left lower leg. Denies headache, chest pain, cough, abdominal pain, dysuria symptoms. Patient admits to unquantified weight gain over the last few weeks. Lowest O2 sats of 87 on room air documented at the ER. IV ceftriaxone administered at the ER. 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 Allergies Allergy/AdvReac Type Severity Reaction Status Date / Time atorvastatin Allergy Severe WHEEZING/RESP Verified 11/28/22 17:06 DIFFICULTY ciprofloxacin Allergy Severe SHORT OF Verified 11/28/22 17:06 BREATH/RASH amoxicillin Allergy Intermediate Hives Verified 11/28/22 17:06 Iodinated Contrast Media Allergy Intermediate HIVES Verified 11/28/22 17:06 iodine Allergy Intermediate Hives Verified 11/28/22 17:06 Sulfa (Sulfonamide Allergy Intermediate SHORT OF Verified 11/28/22 17:06 Antibiotics) BREATH/RASH escitalopram Allergy Unknown UNKNOWN Verified 11/28/22 17:06 PER [facility] MED LIST niacin Allergy Unknown UNKNOWN Verified 11/28/22 17:06 PER [facility] MED LIST lisinopril AdvReac Intermediate Gastrointestinal Verified 11/28/22 17:06 Upset Home Medications Medication Instructions Recorded Confirmed Type CPAP Machine #1 ea 06/30/19 05/27/20 Rx ascorbic acid (vitamin C) 1,000 mg 1 g PO QAM 02/24/20 11/28/22 History tablet (Vitamin C) compr.stocking,knee,long,x-lrg #2 ea 05/10/20 05/27/20 Rx aspirin 81 mg tablet,delayed 81 mg PO DAILY 11/28/22 11/28/22 History release clonazepam 1 mg tablet 1 mg PO HS 11/28/22 11/28/22 History cyanocobalamin (vitamin B-12) 250 250 mcg PO DAILY 11/28/22 11/28/22 History mcg tablet (Vitamin B-12) escitalopram oxalate 10 mg tablet 10 mg PO DAILY 11/28/22 11/28/22 History furosemide 20 mg tablet (Lasix) 20 mg PO BID 11/28/22 11/28/22 History levothyroxine 112 mcg tablet 112 mcg PO DAILYBB 11/28/22 11/28/22 History losartan 25 mg tablet 25 mg PO DAILY 11/28/22 11/28/22 History meloxicam 7.5 mg tablet 7.5 mg PO QAM 11/28/22 11/28/22 History omega 4-frq-svs-fish oil 1,000 mg 1 cap PO QAM 11/28/22 11/28/22 History (120 mg-180 mg) capsule (Fish Oil) oxybutynin chloride 5 mg 5 mg PO QAM 11/28/22 11/28/22 History tablet,extended release 24 hr vitamin E 268 mg (400 unit) capsule 268 mg PO DAILY 11/28/22 11/28/22 History 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 Chronic osteoarthritis Colitis Cyst of kidney, acquired Cyst of pancreas Depression with anxiety Diverticular disease Fatty liver GERD (gastroesophageal reflux disease) History of cholecystitis HTN (hypertension) Hyperlipemia Hypothyroidism Lower extremity edema Migraine Morbid obesity with BMI of 45.0-49.9, adult Obstructive sleep apnea cpap Self-catheterizes urinary bladder in the am and at night d/t ureters being cut during hysterectomy--pt states she can still void as well Surgical History H/O colonoscopy with polypectomy H/O: hysterectomy ONEIL BSO ~pt states she [place] [facility] [place] states that "they accidentally cut my kidney tubes and I have to catherize myself every day twice a day since then" History of appendectomy History of bilateral cataract extraction History of detached retina repair right History of dilatation and curettage History of esophagogastroduodenoscopy (EGD) History of knee replacement procedure of right knee (~2006) History of lumbar spinal fusion History of sinus surgery History of tooth extraction all teeth Family History Son Colorectal cancer Hypertension Mother Ovarian cancer Diabetes Grandmother (Paternal) Hypertension Grandmother (Maternal) Heart disease Stroke Son Family hx colonic polyps Son Family hx colonic polyps Other No family history of adverse response to anesthesia Denies family history of Prostate cancer Myocardial infarction Breast cancer Social History Smoking Status: Never smoker Second Hand Exposure: No; Do You Dip or Chew Tobacco: No; Tobacco Cessation Education Requested by Patient: No Hx Alcohol Use: No Hx Substance Use: No Preferred Language: Belgian Communication Ability: Effective Visual Impairment: No Limitations Hearing Ability: Normal 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 Operation Required: No Beliefs That Will Affect Care: None marital status: Current Living Situation: Spouse current occupational status: retired How many Children do You have: 5 Other Information That Helps Us Care for You: Yes Feels Safe at Home: Yes Safety Concerns: Feels Safe At This Time Childhood Exposure to Second-Hand Smoke: Yes caffeine: Yes Dental Care, Regularly: No Physical Activity Frequency: 1-2 Times per Week Seatbelt Use: always Sunscreen Use: Yes Assistive Devices: Walker Review of Systems Review of Systems: As per HPI, all other systems reviewed and negative Physical Exam Physical Exam: GENERAL: Slightly uncomfortable, morbidly obese, no respiratory distress SKIN: Normal color, warm HEENT: [place] palpebral conjunctivae, no ptosis, dry buccal mucosa, nasal cannula in place NECK : Supple, short neck, no tenderness CHEST : Decreased breath sounds, no tenderness HEART : RRR, no obvious murmurs ABDOMEN: Marked distention, nontender EXTREMITIES : Bilateral LE swelling, minimal LLE erythema/tenderness, no other conspicuous deformities noted NEUROLOGIC : Coherent, no facial asymmetry, mild hearing impairment, no other gross focality Results & Data Results & Data Vital Signs (Past 12 Hours) Vital Signs Temp Pulse Pulse Resp BP BP Pulse Ox 11/28/22 21:01 74 17 92 11/28/22 21:01 156/108 H 11/28/22 21:00 81 26 H 95 11/28/22 20:31 102/55 L 11/28/22 20:31 78 14 11/28/22 20:30 75 17 95 11/28/22 20:00 80 22 94 11/28/22 19:30 80 20 93 11/28/22 19:51 77 11/28/22 18:30 19 129/55 L 11/28/22 18:01 95 H 15 109/75 11/28/22 17:31 80 15 174/73 H 95 11/28/22 17:10 80 17 163/70 H 94 11/28/22 17:30 79 16 174/73 H 96 11/28/22 15:59 11/28/22 15:55 87 L 11/28/22 15:51 94 H 11/28/22 15:18 37.2 C 95 H 16 132/98 93 O2 Del Method O2 Flow Rate 11/28/22 21:01 11/28/22 21:01 11/28/22 21:00 11/28/22 20:31 11/28/22 20:31 11/28/22 20:30 11/28/22 20:00 11/28/22 19:30 11/28/22 19:51 11/28/22 18:30 11/28/22 18:01 11/28/22 17:31 Room Air 11/28/22 17:10 Room Air 11/28/22 17:30 Nasal Cannula 2 11/28/22 15:59 Nasal Cannula 2 11/28/22 15:55 Room Air 11/28/22 15:51 11/28/22 15:18 Room Air Laboratory Results Laboratory Results WBC 18.47 K/ul (4.8-10.8) H 11/28/22 15:40 RBC 4.88 M/uL (4.20-5.40) 11/28/22 15:40 Hgb 14.9 g/dl (12.0-16.0) 11/28/22 15:40 Hct 42.2 % (37.0-47.0) 11/28/22 15:40 MCV 86.5 fL (80.0-100.0) 11/28/22 15:40 MCH 30.5 pg (25.0-34.0) 11/28/22 15:40 MCHC 35.3 g/dL (32.0-36.0) 11/28/22 15:40 RDW Std Deviation 41.6 fL (36.4-46.3) 11/28/22 15:40 RDW Coeff of Ta 13.2 % (11.5-14.5) 11/28/22 15:40 Plt Count 210 K/uL (130-400) 11/28/22 15:40 MPV 10.2 fL (9.4-12.4) 11/28/22 15:40 Immature Gran % (Auto) 0.8 % 11/28/22 15:40 Neut % (Auto) 86.7 % 11/28/22 15:40 Lymph % (Auto) 5.1 % 11/28/22 15:40 [place] % (Auto) 6.6 % 11/28/22 15:40 Eos % (Auto) 0.2 % 11/28/22 15:40 Baso % (Auto) 0.6 % 11/28/22 15:40 Neut # (Auto) 16.02 K/uL (1.40-6.50) H 11/28/22 15:40 Lymph # (Auto) 0.94 K/uL (1.2-3.4) L 11/28/22 15:40 [place] # (Auto) 1.22 K/uL (0.11-0.59) H 11/28/22 15:40 Eos # (Auto) 0.03 K/uL (0-0.50) 11/28/22 15:40 Baso # (Auto) 0.12 K/uL (0-0.2) 11/28/22 15:40 Immature Gran # (Auto) 0.14 K/uL (0.01-0.20) 11/28/22 15:40 PT 11.4 Seconds (9.0-12.0) 11/28/22 15:40 INR 1.0 (0.9-1.1) 11/28/22 15:40 APTT 33.8 Seconds (21.0-31.0) H 11/28/22 15:40 PTT Ratio 1.2 11/28/22 15:40 Sodium 138 mmol/L (136-145) 11/28/22 15:40 Potassium 4.0 mmol/L (3.5-5.1) 11/28/22 15:40 Chloride 104 mmol/L (98-107) 11/28/22 15:40 Carbon Dioxide 24 mmol/L (21-32) 11/28/22 15:40 Anion Gap 10 (3-11) 11/28/22 15:40 BUN 16 mg/dl (6-23) 11/28/22 15:40 Creatinine 0.80 mg/dl (0.6-1.2) 11/28/22 15:40 Est Cr Clr Drug Dosing Not Reportable 11/28/22 15:40 Est GFR ( Amer) 75.8 ml/min 11/28/22 15:40 Est GFR (Non-Af Amer) 65.4 ml/min 11/28/22 15:40 BUN/Creatinine Ratio 20.0 (10-20) 11/28/22 15:40 Glucose 107 mg/dl (70-99(Fasting)) H 11/28/22 15:40 Calcium 9.9 mg/dl (8.6-10.3) 11/28/22 15:40 Total Bilirubin 1.0 mg/dl (0.2-1.0) 11/28/22 15:40 AST 19 U/L (13-39) 11/28/22 15:40 ALT 17 U/L (7-52) 11/28/22 15:40 Alkaline Phosphatase 56 U/L (34-104) 11/28/22 15:40 Troponin I High Sens 25.0 pg/ml (0-14) H 11/28/22 15:40 C-Reactive Protein 1.17 mg/dl (0-0.5) H 11/28/22 15:40 B-Natriuretic Peptide 124 pg/ml (0-100) H 11/28/22 16:11 Total Protein 7.2 gm/dl (6.0-8.3) 11/28/22 15:40 Albumin 4.1 gm/dl (3.4-5.0) 11/28/22 15:40 Globulin 3.1 gm/dl (2.5-4.0) 11/28/22 15:40 Albumin/Globulin Ratio 1.3 (0.9-2) 11/28/22 15:40 Procalcitonin 0.09 ng/ml (0-0.5) 11/28/22 15:40 Procalcitonin Cancelled 11/28/22 15:40 Urine Color Dark Yellow 11/28/22 19:26 Urine Appearance Clear (Clear) 11/28/22 19:26 Urine pH >= 9.0 (4.5-7.5) H 11/28/22 19:26 Ur Specific [place] 1.018 (1.000-1.030) 11/28/22 19:26 Urine Protein Negative (Negative) 11/28/22 19:26 Urine Glucose (UA) Negative (Negative) 11/28/22 19: Urine Ketones Negative (Negative) 11/28/22 19: Urine Blood Negative (Negative) 11/28/22 19: Urine Nitrite Negative (Negative) 11/28/22 19: Urine Bilirubin Negative (Negative) 11/28/22 19: Urine Urobilinogen Negative (Negative) 11/28/22 19: Ur Leukocyte Esterase Trace (Negative) H 11/28/22 19:26 Urine WBC (Auto) 1-5 /hpf (0-5) 11/28/22 19:26 Urine RBC (Auto) 0-4 /hpf (0-4) 11/28/22 19:26 U Hyaline Cast (Auto) 1-5 /lpf (0-5) 11/28/22 19:26 U Epithel Cells (Auto) 10-20 /lpf (0-5) H 11/28/22 19:26 Urine Bacteria (Auto) 3+ (Negative) H 11/28/22 19:26 Anaplasma Smear See Comment 11/28/22 15:40 Babesia Smear See Comment 11/28/22 15:40 Lyme Disease IgG Ab Negative (Negative) 11/28/22 15:40 Lyme Disease IgM Ab Negative (Negative) 11/28/22 15:40 SARS-CoV-2, RNA, NAAT NEGATIVE (NEGATIVE) 11/28/22 20:54 Impressions Chest X-Ray 11/28/22 17:07 SINGLE VIEW CHEST CLINICAL HISTORY: Dyspnea. FINDINGS: An AP, portable, upright chest radiograph is compared to study dated 11/25/2022. Correlation is made with chest CT dated 07/04/2017. The examination is degraded by portable technique and apical lordotic positioning. The heart is enlarged noting atherosclerotic calcification of the thoracic aorta. The pulmonary vasculature is noncongested. Chronic interstitial thickening is similar to previous. The lungs and pleural spaces are clear. No pneumothorax is seen. The skeletal structures are osteopenic. The bony thorax is grossly intact. Cholecystectomy clips are seen in the right upper quadrant. IMPRESSION: No acute cardiopulmonary abnormality. ACT 112: Negative or not required by law. Electronically signed by: Meet Zhang M.D. 11/28/2022 6:[address] chest: No CT evidence of pulmonary embolism. Diagnostic Findings EKG as per my interpretation : Rate 95, NSR, LAD, LAFB, LVH, septal and inferior infarct, T wave abnormalities inferior leads, PVCs
[2022-11-28] MEDS ORDERED: PROMETHAZINE HCL 12.5 MG in SODIUM CHLORIDE 0.9% 50 ML IV PRN (22:20)
[2022-11-28] MEDS ORDERED: traMADol HCL 50 MG TABLET PO PRN (22:20)
[2022-11-28] MEDS ORDERED: diphenhydrAMINE 50 MG/ML VIAL IV STA (22:21)
[2022-11-28] MEDS ORDERED: diphenhydrAMINE 50 MG/ML VIAL ONE (22:22)
[2022-11-28] MEDS ORDERED: OPTIRAY 320 125ml IV ONE (23:14)
[2022-11-28] MEDS ORDERED: ALBUT/IPRATROP 3MG/0.5MG NEB 3 ML VIAL ONE (23:49)
--- NOTE | 2022-11-29 | CT Scan Report ---
Exam(s): CTA CHEST IV Amt: 117 ML OPTIRAY 320 EXAM: CT Angiography Chest With Intravenous Contrast CLINICAL HISTORY: Reason for exam: sob. TECHNIQUE: Axial computed tomographic angiography images of the chest with intravenous contrast. CTDI is 28.14 mGy and DLP is 859.56 mGy-cm. Automated exposure control was utilized for the study. A dose lowering technique was utilized adhering to the principles of ALARA. MIP reconstructed images were created and reviewed. COMPARISON: No relevant prior studies available. FINDINGS: Pulmonary arteries: Unremarkable. No CT evidence of pulmonary embolism. Aorta: No acute findings. No thoracic aortic aneurysm. Lungs: 0.5 cm pulmonary nodule in the right middle lobe adjacent to the minor fissure. Pleural space: Unremarkable. No significant effusion. No pneumothorax. Heart: Unremarkable. No cardiomegaly. No significant pericardial effusion. No evidence of RV dysfunction. Bones/joints: No acute fracture. No dislocation. Soft tissues: 2.1 cm simple cyst arising off the upper pole of the left kidney. No further workup is required. Lymph nodes: Unremarkable. No enlarged lymph nodes. IMPRESSION: No CT evidence of pulmonary embolism. Electronically signed by: Luis E Cosme M.D. 11/28/22 23:59 PM
[2022-11-29] MEDS ORDERED: ALBUMIN 25% 25 GM/100 ML VIAL IV ONE (00:02)
[2022-11-29 00:04] LABS: HCO3 ABG 26 mmol/L (19-24); Oxygen Saturation ABG 98.3 % (90-95); PCO2 ABG 36 mmHg (35-46); PO2 ABG 77 mmHg (80-95); pH ABG 7.46 (7.35-7.45)
[2022-11-29 00:26] LABS: Allen Test Pos (Pos); Magnesium 1.9 mg/dl (1.7-2.4)
[2022-11-29 00:33] LABS: Troponin I High Sensitivity 25.7 pg/ml (0-14)
[2022-11-29] MEDS: clonazePAM 1 MG TAB PO SCH ×2 (00:34→22:07)
[2022-11-29] MEDS ORDERED: MAGNESIUM SULFATE / D5W 1 GM/100 ML BAG IV ONE (01:24)
[2022-11-29] MEDS ORDERED: diphenhydrAMINE 50 MG/ML VIAL IV ONE (01:43)
[2022-11-29] MEDS: LEVOTHYROXINE SODIUM 112 MCG TABLET PO SCH (05:53)
[2022-11-29 06:30] LABS: Hematocrit (blood only) 38.9 % (37.0-47.0); Hemoglobin 13.4 g/dl (12.0-16.0); Mean Corpuscular Hemoglobin 30.1 pg (25.0-34.0); Mean Corpuscular Hgb Conc 34.4 g/dL (32.0-36.0); Mean Corpuscular Volume 87.4 fL (80.0-100.0); Mean Platelet Volume 10.3 fL (9.4-12.4); Platelet Count 184 K/uL (130-400); RDW Coefficient of Variation 13.5 % (11.5-14.5); RDW Standard Deviation 43.3 fL (36.4-46.3); Red Blood Count 4.45 M/uL (4.20-5.40); White Blood Count 14.55 K/ul (4.8-10.8)
[2022-11-29 06:48] LABS: BUN Creatinine Ratio 21.4 (10-20); Calcium 9.3 mg/dl (8.6-10.3); Creatinine Clr Calc Pharmacy 56.8 ml/min; Est GFR (African American) 71.4 ml/min; Est GFR (Non-African American) 61.6 ml/min
[2022-11-29 06:54] LABS: Basophils # (auto) 0.03 K/uL (0-0.2); Basophils % (auto) 0.2 %; Immature Granulocytes # (auto) 0.05 K/uL (0.01-0.20); Immature Granulocytes % (auto) 0.3 %; Lymphocytes # (auto) 0.68 K/uL (1.2-3.4); Lymphocytes % (auto) 4.7 %; Monocytes # (auto) 0.19 K/uL (0.11-0.59); Monocytes % (auto) 1.3 %; Neutrophils % (auto) 93.5 %; Troponin I High Sensitivity 14.6 pg/ml (0-14)
[2022-11-29] MEDS: CYANOCOBALAMIN (B-12) 500 MCG TABLET PO SCH (08:39)
[2022-11-29] MEDS: DOXYCYCLINE HYCLATE 100 MG CAP PO SCH ×2 (08:39→22:07)
[2022-11-29] MEDS: ASPIRIN 81 MG ECTAB PO SCH (08:39)
[2022-11-29] MEDS: ESCITALOPRAM OXALATE 10 MG TAB PO SCH (08:39)
[2022-11-29] MEDS: FUROSEMIDE 40 MG/4 ML VIAL IV SCH ×2 (08:40→16:24)
[2022-11-29] MEDS: LOSARTAN POTASSIUM 25 MG TAB PO SCH (08:40)
[2022-11-29] MEDS: OXYBUTYNIN CHLORIDE XL 5 MG TABCR PO SCH (08:40)
--- NOTE | 2022-11-29 10:02 | XCELERA ---
[id number]
--- NOTE | 2022-11-29 12:49 | Cardiology Consultation ---
Date of Consultation November 29, 2022 Assessment & Plan (1) Lower extremity edema: -question if this was secondary to dietary indiscretion with salt. -echocardiogram notes normal left ventricular systolic function. -possible diagnosis of diastolic CHF is entertained. -would continue Lasix 40 mg IV b.i.d. until BUN and/or creatinine increase. -low-salt and fluid-restricted diet. (2) HTN (hypertension): -adequate control on current regimen. (3) Hyperlipemia: -consider statin therapy. History of Present Illness Attending Physician: Calderon Forrester MD History of Present Illness Mrs. Muller is an 87-year-old female admitted yesterday with progressive lower extremity edema. This consultation was ordered to assist in her cardiac management. The patient was in her usual state of health until approximately 3 weeks prior to presentation. She began to note progressive lower extremity edema, weight gain, and fatigue. She contact her PCP who advised her to increase her Lasix dose from 20-40 mg daily. Unfortunately, this did little to improve her edema. Therefore, she presented to the emergency room for further care. She has not experienced any chest discomfort or limiting dyspnea. She further denies syncope, presyncope, PND, orthopnea palpitations, and claudication. The patient has never known of a cardiac event. She has never had a cardiac catheterization. Currently, patient is resting comfortably in bed and without complaints. Past medical and surgical history 1. Hypertension 2. Hypercholesterolemia 3. GERD 4. Diverticular disease 5. Migraine headaches 6. Obesity 7. Obstructive sleep apnea 8. Anxiety/depression 9. Pancreatic cyst 10. DJD 11. ONEIL/BSO 12. Appendectomy 13. Bilateral intra-ocular lens implants 14. Right [id number] 15. Lumbar spinal fusion 16. D&C Social history and lives with her No tobacco alcohol Family history Noncontributory Review of systems A 10 review systems undertaken and negative except that described above. Allergies Allergy/AdvReac Type Severity Reaction Status Date / Time atorvastatin Allergy Severe WHEEZING/RESP Verified 11/28/22 17:06 DIFFICULTY ciprofloxacin Allergy Severe SHORT OF Verified 11/28/22 17:06 BREATH/RASH amoxicillin Allergy Intermediate Hives Verified 11/28/22 17:06 Iodinated Contrast Media Allergy Intermediate HIVES Verified 11/28/22 17:06 iodine Allergy Intermediate Hives Verified 11/28/22 17:06 Sulfa (Sulfonamide Allergy Intermediate SHORT OF Verified 11/28/22 17:06 Antibiotics) BREATH/RASH escitalopram Allergy Unknown UNKNOWN Verified 11/28/22 17:06 PER [facility] MED LIST niacin Allergy Unknown UNKNOWN Verified 11/28/22 17:06 PER [facility] MED LIST lisinopril AdvReac Intermediate Gastrointestinal Verified 11/28/22 17:06 Upset Home Medications Medication Instructions Recorded Confirmed Type CPAP Machine #1 ea 06/30/19 05/27/20 Rx ascorbic acid (vitamin C) 1,000 mg 1 g PO QAM 02/24/20 11/28/22 History tablet (Vitamin C) compr.stocking,knee,long,x-lrg #2 ea 05/10/20 05/27/20 Rx aspirin 81 mg tablet,delayed 81 mg PO DAILY 11/28/22 11/28/22 History release clonazepam 1 mg tablet 1 mg PO HS 11/28/22 11/28/22 History cyanocobalamin (vitamin B-12) 250 250 mcg PO DAILY 11/28/22 11/28/22 History mcg tablet (Vitamin B-12) escitalopram oxalate 10 mg tablet 10 mg PO DAILY 11/28/22 11/28/22 History furosemide 20 mg tablet (Lasix) 20 mg PO BID 11/28/22 11/28/22 History levothyroxine 112 mcg tablet 112 mcg PO DAILYBB 11/28/22 11/28/22 History losartan 25 mg tablet 25 mg PO DAILY 11/28/22 11/28/22 History meloxicam 7.5 mg tablet 7.5 mg PO QAM 11/28/22 11/28/22 History omega 4-rpu-qem-fish oil 1,000 mg 1 cap PO QAM 11/28/22 11/28/22 History (120 mg-180 mg) capsule (Fish Oil) oxybutynin chloride 5 mg 5 mg PO QAM 11/28/22 11/28/22 History tablet,extended release 24 hr vitamin E 268 mg (400 unit) capsule 268 mg PO DAILY 11/28/22 11/28/22 History Patient History Medical History Anemia Aortic atherosclerosis 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 Chronic osteoarthritis Colitis Cyst of kidney, acquired Cyst of pancreas Depression with anxiety Diverticular disease Fatty liver GERD (gastroesophageal reflux disease) History of cholecystitis HTN (hypertension) Hyperlipemia Hypothyroidism Lower extremity edema Migraine Morbid obesity with BMI of 45.0-49.9, adult Obstructive sleep apnea cpap Self-catheterizes urinary bladder in the am and at night d/t ureters being cut during hysterectomy--pt states she can still void as well Surgical History H/O colonoscopy with polypectomy H/O: hysterectomy ONEIL BSO ~pt [place] she [place] [facility] [place] states that "they accidentally cut my kidney tubes and I have to catherize myself every day twice a day since then" History of appendectomy History of bilateral cataract extraction History of detached retina repair right History of dilatation and curettage History of esophagogastroduodenoscopy (EGD) History of knee replacement procedure of right knee (~2006) History of lumbar spinal fusion History of sinus surgery History of tooth extraction all teeth Family History Son Colorectal cancer Hypertension Mother Ovarian cancer Diabetes Grandmother (Paternal) Hypertension Grandmother (Maternal) Heart disease Stroke Son Family hx colonic polyps Son Family hx colonic polyps Other No family history of adverse response to anesthesia Denies family history of Prostate cancer Myocardial infarction Breast cancer Social History Smoking Status: Never smoker Second Hand Exposure: No; Do You Dip or Chew Tobacco: No; Tobacco Cessation Education Requested by Patient: No Hx Alcohol Use: No Hx Substance Use: No Preferred Language: Polish Communication Ability: Effective Visual Impairment: No Limitations Hearing Ability: Normal Loss Prevention Officer Required: No Beliefs That Will Affect Care: None marital status: Current Living Situation: Spouse current occupational status: retired How many Children do You have: 5 Other Information That Helps Us Care for You: Yes Feels Safe at Home: Yes Safety Concerns: Feels Safe At This Time Childhood Exposure to Second-Hand Smoke: Yes caffeine: Yes Dental Care, Regularly: No Physical Activity Frequency: 1-2 Times per Week Seatbelt Use: always Sunscreen Use: Yes Assistive Devices: Walker Results & Data Vital Signs (Past 12 Hours) Vital Signs Temp Pulse Pulse Resp BP Pulse Ox O2 Del Method 11/29/22 07:34 67 11/29/22 10:26 Nasal Cannula, Oxymask 11/29/22 07:18 36.9 C 69 18 118/66 97 Oxymask 11/29/22 02:23 36.5 C 81 18 132/78 97 BiPAP 11/29/22 01:51 72 26 H 98 O2 Flow Rate 11/29/22 07:34 11/29/22 10:26 4 11/29/22 07:18 4 11/29/22 02:23 11/29/22 01:51 4 Laboratory Results Initial high sensitivity troponin was 25 follow-up values of 25.7 in 14.6. BNP was mildly elevated 124. Diagnostic Findings Echocardiogram notes normal left ventricular systolic function with ejection fraction of 60-65%. There was mild LVH. EKG notes sinus rhythm with PVCs and left ventricular hypertrophy with repolarization changes. Chest x-ray shows cardiomegaly but no acute disease. No interstitial edema. CT scan of the chest fails to show interstitial edema. PG Care Time/CCT Total # of Minutes Spent Total Time Spent with Patient: Total time spent is greater than 50% in coordination of care (as documented) at patient's floor/unit and/or counseling patient: Coding Level of Care Code 95998 INT INP/OBS CARE 3/75MIN Diagnoses Lower extremity edema R60.0 HTN (hypertension) I10 Hypertension type: essential hypertension Hyperlipemia E78.5 (2) HTN (hypertension) Hypertension type: essential hypertension Qualified Code(s): I10 - Essential (primary) hypertension
--- NOTE | 2022-11-29 14:31 | Hospitalist Progress Note ---
Date of Service November 29, 2022 Assessment & Plan (1) Acute hypoxemic respiratory failure: Plan: Acute respiratory failure with hypoxia Likely multifactorial: Diastolic heart failure, obstructive sleep apnea, DD obesity hypoventilation syndrome Mild troponin elevation likely demand ischemia secondary to above --CTA:No CT evidence of pulmonary embolism. --Venous Doppler:No acute findings in the bilateral lower extremity veins. --ECHO: Left ventricle systolic function is normal. No regional wall motion abnormalities noted. Mild concentric LVH. EF 60 to 65%. -- BNP mildly elevated --Continue supplemental oxygen as needed Continue IV Lasix Appreciate cardiology input Monitor I's and O's, daily weight, volume status Continue CPAP at bedtime Will obtain nocturnal oximetry study and 2 step prior to discharge Left leg cellulitis Possible UTI Blood, urine cultures pending Empirically on Rocephin, doxycycline ELLI Has not been using CPAP since recalled Continue CPAP HS Scheduled for outpatient sleep study as per patient Hypertension Continue losartan Monitor Hyperlipidemia H/O statin intolerance Hypothyroidism Normal TSH Continue levothyroxine Anxiety/mood disorder Continue home medications Morbid obesity BMI 49 DVT Px: Lovenox SQ Code Status Full code Admission and Anticipated Discharge Date Admission Date: November 28, 2022 Subjective Patient is seen and examined at bedside Drowsy during my encounter but easily awakes Admits to having poor sleep overnight Has not been using CPAP since recalled as per patient States having generalized weakness Denies any chest pain, dyspnea, dizziness, nausea, vomiting, abdominal pain Review of Systems Review of Systems: All systems reviewed & are unremarkable except as noted in Subjective Physical Exam Physical Exam: Physical Exam: Vitals signs as noted above General Appearance:Morbidly Obese, no apparent distress Head: normocephalic, Atraumatic Eyes: normal inspection, EOMI Neck: supple, Trachea midline Respiratory/Chest: Decreased breath sounds, CTA, No accessory muscle use Cardiovascular: S1, S2, No murmur Abdomen/GI:Soft, Non tender, +Distention, Bowel sounds present Extremities/Musculoskeletal:normal inspection, B/LL LE edema Neurologic/Psych:AAOX3, grossly no focal neurological deficits Skin: normal color, warm Results & Data Results & Data Vital Signs (Past 12 Hours) Vital Signs Temp Pulse Pulse Resp BP Pulse Ox O2 Del Method 11/29/22 07:34 67 11/29/22 10:26 Nasal Cannula, Oxymask 11/29/22 07:18 36.9 C 69 18 118/66 97 Oxymask O2 Flow Rate 11/29/22 07:34 11/29/22 10:26 4 11/29/22 07:18 4 Laboratory Results Short CBC 11/28/22 11/29/22 Range/Units 15:40 05:55 WBC 18.47 H 14.55 H (4.8-10.8) K/ul Hgb 14.9 13.4 (12.0-16.0) g/dl Hct 42.2 38.9 (37.0-47.0) % Plt Count 210 184 (130-400) K/uL BMP 11/28/22 11/29/22 15:40 05:55 Sodium 138 137 Potassium 4.0 4.0 Chloride 104 104 Carbon Dioxide 24 26 BUN 16 18 Creatinine 0.80 0.84 Glucose 107 H 163 H Calcium 9.9 9.3 Liver Function 11/28/22 Range/Units 15:40 Total Bilirubin 1.0 (0.2-1.0) mg/dl AST 19 (13-39) U/L ALT 17 (7-52) U/L Alkaline Phosphatase 56 (34-104) U/L Albumin 4.1 (3.4-5.0) gm/dl Urine 11/28/22 Range/Units 19:26 Urine Color Dark Yellow Urine Appearance Clear (Clear) Urine pH >= 9.0 H (4.5-7.5) Ur Specific Holiday 1.018 (1.000-1.030) Urine Protein Negative (Negative) Urine Glucose (UA) Negative (Negative)
[2022-11-29] MEDS ORDERED: cefTRIAXone SODIUM 1,000 MG in DEXTROSE 5% AD-VAN 50 ML IV SCH (14:45)
[2022-11-29] MEDS: ENOXAPARIN INJ 40 MG/0.4 ML SYR SQ SCH (16:24)
[2022-11-29] MEDS ORDERED: clonazePAM 1 MG TAB PO SCH (21:00)
[2022-11-29] MEDS: cefTRIAXone SODIUM 2,000 MG in DEXTROSE 5% 50 ML IV SCH (22:08)
[2022-11-30] MEDS: LEVOTHYROXINE SODIUM 112 MCG TABLET PO SCH (05:51)
[2022-11-30 06:57] LABS: Hematocrit (blood only) 37.2 % (37.0-47.0); Hemoglobin 12.6 g/dl (12.0-16.0); Mean Corpuscular Hemoglobin 30.7 pg (25.0-34.0); Mean Corpuscular Hgb Conc 33.9 g/dL (32.0-36.0); Mean Corpuscular Volume 90.7 fL (80.0-100.0); Mean Platelet Volume 10.6 fL (9.4-12.4); Platelet Count 187 K/uL (130-400); RDW Coefficient of Variation 13.7 % (11.5-14.5); RDW Standard Deviation 45.9 fL (36.4-46.3); White Blood Count 10.62 K/ul (4.8-10.8)
[2022-11-30 07:08] LABS: BUN Creatinine Ratio 36.7 (10-20); Calcium 9.3 mg/dl (8.6-10.3); Est GFR (African American) 65.7 ml/min; Est GFR (Non-African American) 56.7 ml/min; Magnesium 2.2 mg/dl (1.7-2.4); Potassium 3.9 mmol/L (3.5-5.1)
[2022-11-30] MEDS: ASPIRIN 81 MG ECTAB PO SCH (08:24)
[2022-11-30] MEDS: ESCITALOPRAM OXALATE 10 MG TAB PO SCH (08:25)
[2022-11-30] MEDS: CYANOCOBALAMIN (B-12) 500 MCG TABLET PO SCH (08:25)
[2022-11-30] MEDS: LOSARTAN POTASSIUM 25 MG TAB PO SCH (08:25)
[2022-11-30] MEDS: DOXYCYCLINE HYCLATE 100 MG CAP PO SCH ×2 (08:25→21:25)
[2022-11-30] MEDS: OXYBUTYNIN CHLORIDE XL 5 MG TABCR PO SCH (08:26)
[2022-11-30] MEDS: FUROSEMIDE 40 MG/4 ML VIAL IV SCH ×2 (08:35→18:28)
--- NOTE | 2022-11-30 14:27 | Hospitalist Progress Note ---
Date of Service November 30, 2022 Assessment & Plan (1) Acute hypoxemic respiratory failure: Plan: Acute respiratory failure with hypoxia Likely multifactorial: Acute Diastolic CHF, obstructive sleep apnea, DD obesity hypoventilation syndrome Mild troponin elevation likely demand ischemia secondary to above --CTA:No CT evidence of pulmonary embolism. --Venous Doppler:No acute findings in the bilateral lower extremity veins. --ECHO: Left ventricle systolic function is normal. No regional wall motion abnormalities noted. Mild concentric LVH. EF 60 to 65%. -- BNP mildly elevated --Continue supplemental oxygen as needed Continue IV Lasix 40mg BID Appreciate cardiology input Monitor I's and O's, daily weight, volume status Continue CPAP at bedtime Will obtain nocturnal oximetry study and 2 step prior to discharge Continue diuresis Left leg cellulitis Possible UTI--Less likely Blood, urine cultures:Negative to date Urine Culture: Moderate probable skin mikayla Empirically on Rocephin, doxycycline Clinically improved ELLI Has not been using CPAP since recalled Continue CPAP HS Scheduled for outpatient sleep study as per patient Hypertension Continue losartan Monitor Hyperlipidemia H/O statin intolerance Hypothyroidism Normal TSH Continue levothyroxine Anxiety/mood disorder Continue home medications Morbid obesity BMI 49 DVT Px: Lovenox SQ Code Status Full code Disposition PT OT prior to discharge Admission and Anticipated Discharge Date Admission Date: November 28, 2022 Subjective Patient is seen and examined at bedside Alert, awake, oriented during my encounter Sitting in chair comfortably States having runny nose, sinus congestion and sneezing Denies any significant dyspnea Leg edema slowly improving Denies any chest pain, dyspnea, dizziness, nausea, vomiting, abdominal pain Saturating well on supplemental oxygen Review of Systems Review of Systems: All systems reviewed & are unremarkable except as noted in Subjective Physical Exam Physical Exam: Physical Exam: Vitals signs as noted above General Appearance:Morbidly Obese, no apparent distress Head: normocephalic, Atraumatic Eyes: normal inspection, EOMI Neck: supple, Trachea midline Respiratory/Chest: Decreased breath sounds, CTA, No accessory muscle use Cardiovascular: S1, S2, No murmur Abdomen/GI:Soft, Non tender, +Distention, Bowel sounds present Extremities/Musculoskeletal:normal inspection, B/LL LE edema Neurologic/Psych:AAOX3, grossly no focal neurological deficits Skin: normal color, warm Results & Data Results & Data Vital Signs (Past 12 Hours) Vital Signs Temp Pulse Pulse Pulse Resp BP Pulse Ox 11/30/22 07:13 65 07/20/23 13:08 11/30/22 11:36 36.5 C 66 18 103/71 96 11/30/22 07:34 36.7 C 75 20 116/68 95 11/30/22 02:32 37 C 67 20 122/75 94 11/30/22 02:26 20 O2 Del Method O2 Flow Rate 11/30/22 07:13 11/30/22 13:08 Nasal Cannula 4 11/30/22 11:36 Nasal Cannula 4 11/30/22 07:34 Nasal Cannula 4 11/30/22 02:32 CPAP 11/30/22 02:26 4 Laboratory Results Short CBC 11/30/22 Range/Units 06:14 WBC 10.62 (4.8-10.8) K/ul Hgb 12.6 (12.0-16.0) g/dl Hct 37.2 (37.0-47.0) % Plt Count 187 (130-400) K/uL BMP 11/30/22 06:14 Sodium 139 Potassium 3.9 Chloride 103 Carbon Dioxide 31 BUN 33 H Creatinine 0.90 Glucose 107 H Calcium 9.3
[2022-11-30] MEDS: ENOXAPARIN INJ 40 MG/0.4 ML SYR SQ SCH (14:51)
[2022-11-30] MEDS: ACETAMINOPHEN 325 MG TAB PO PRN ×2 (14:51→21:59)
[2022-11-30] MEDS: cefTRIAXone SODIUM 2,000 MG in DEXTROSE 5% 50 ML IV SCH (21:21)
[2022-11-30] MEDS: clonazePAM 1 MG TAB PO SCH (21:25)
[2022-11-30] MEDS ORDERED: COUGH DROP (SUGAR FREE) LOZ 24 LOZ/1 BOX BUCCAL PRN (22:25)
[2022-12-01] MEDS: LEVOTHYROXINE SODIUM 112 MCG TABLET PO SCH (05:04)
[2022-12-01] MEDS: ACETAMINOPHEN 325 MG TAB PO PRN ×2 (05:30→21:34)
[2022-12-01 07:49] LABS: Base Excess VBG 5.4 mEq/L; HCO3 VBG 32 mmol/L; Oxygen Saturation VBG 85.2 %; PCO2 VBG 51 mmHg (38-50); PO2 VBG 52 mmHg
[2022-12-01 07:51] LABS: Hematocrit (blood only) 39.3 % (37.0-47.0); Hemoglobin 13.5 g/dl (12.0-16.0); Mean Corpuscular Hemoglobin 30.2 pg (25.0-34.0); Mean Corpuscular Hgb Conc 34.4 g/dL (32.0-36.0); Mean Corpuscular Volume 87.9 fL (80.0-100.0); Mean Platelet Volume 10.4 fL (9.4-12.4); Platelet Count 211 K/uL (130-400); RDW Coefficient of Variation 13.4 % (11.5-14.5); RDW Standard Deviation 43.4 fL (36.4-46.3); Red Blood Count 4.47 M/uL (4.20-5.40); White Blood Count 8.71 K/ul (4.8-10.8)
[2022-12-01 08:11] LABS: BUN Creatinine Ratio 36.9 (10-20); Calcium 9.5 mg/dl (8.6-10.3); Creatinine Clr Calc Pharmacy 54.8 ml/min; Est GFR (African American) 71.4 ml/min; Est GFR (Non-African American) 61.6 ml/min; Potassium 3.6 mmol/L (3.5-5.1)
[2022-12-01] MEDS: ASPIRIN 81 MG ECTAB PO SCH (08:49)
[2022-12-01] MEDS: ESCITALOPRAM OXALATE 10 MG TAB PO SCH (08:50)
[2022-12-01] MEDS: DOXYCYCLINE HYCLATE 100 MG CAP PO SCH ×2 (08:50→21:28)
[2022-12-01] MEDS: CYANOCOBALAMIN (B-12) 500 MCG TABLET PO SCH (08:50)
[2022-12-01] MEDS: FUROSEMIDE 40 MG/4 ML VIAL IV SCH ×2 (08:50→16:49)
[2022-12-01] MEDS: OXYBUTYNIN CHLORIDE XL 5 MG TABCR PO SCH (08:51)
[2022-12-01] MEDS: LOSARTAN POTASSIUM 25 MG TAB PO SCH (08:51)
[2022-12-01] MEDS: ENOXAPARIN INJ 40 MG/0.4 ML SYR SQ SCH (15:03)
--- NOTE | 2022-12-01 16:51 | Hospitalist Progress Note ---
Date of Service December 01, 2022 Assessment & Plan (1) Acute hypoxemic respiratory failure: Plan: Acute respiratory failure with hypoxia Likely multifactorial: Acute Diastolic CHF, obstructive sleep apnea, DD obesity hypoventilation syndrome Mild troponin elevation likely demand ischemia secondary to above --CTA:No CT evidence of pulmonary embolism. --Venous Doppler:No acute findings in the bilateral lower extremity veins. --ECHO: Left ventricle systolic function is normal. No regional wall motion abnormalities noted. Mild concentric LVH. EF 60 to 65%. -- BNP mildly elevated --Continue supplemental oxygen as needed Continue IV Lasix 40mg BID Appreciate cardiology input and recommendation Monitor I's and O's, daily weight, volume status Continue CPAP at bedtime Will obtain nocturnal oximetry study and 2 step prior to discharge Clinically much better and she wants to see the slitter operator again on Sunday before discharge Nocturnal pulse oximetry is done-no desaturation events more than 3 minutes Continue current management and get PT and OT evaluation Left leg cellulitis Possible UTI--Less likely Blood, urine cultures:Negative to date Urine Culture: Moderate probable skin mikayla Empirically on Rocephin, doxycycline Clinically improved ELLI Has not been using CPAP since recalled Continue CPAP HS Scheduled for outpatient sleep study as per patient Continue CPAP at nighttime Hypertension Continue losartan Monitor Hyperlipidemia H/O statin intolerance Hypothyroidism Normal TSH Continue levothyroxine Anxiety/mood disorder Continue home medications Morbid obesity BMI 49 DVT Px: Lovenox SQ Code Status Full code Disposition PT OT prior to discharge Admission and Anticipated Discharge Date Admission Date: November 28, 2022 Subjective 12/01/2022 The patient was seen and examined in telemetry unit She has been stable and denies any chest pain, palpitation or shortness of breath She wants to see the slitter operator on Sunday Review of Systems Review of Systems: All systems reviewed and are unremarkable except as noted below Respiratory: No shortness of breath at rest Cardiovascular: Additional Comments: No cardiac symptoms Physical Exam Physical Exam: Sitting on a chair without any acute distress Constitutional: well developed, well nourished and + obese; not ill appearing Eyes: PERRL, conjunctivae normal, anicteric sclerae ENMT: external ear and nose normal, oropharynx normal Neck: trachea midline, no thyromegaly Respiratory: no respiratory distress Auscultation: + diminished lung sounds and + crackles (Minimal crackles at the bases) Cardiovascular: Rate/Rhythm: regular rate, regular rhythm and + bradycardic Heart Sounds: normal S1 and normal S2; no murmur Extremities: + edema (Trace edema bilaterally) Gastrointestinal (Abdomen): Inspection/Auscultation: + abdomen distended and normal bowel sounds Percussion/Palpation: abdomen soft; abdomen nontender Musculoskeletal: No acute arthritis involving any of the joint Neurologic: normal touch/pain/proprioception and moves all extremities; no focal motor deficits Psychiatric: A+Ox3, euthymic affect Lymphatic: no cervical or axillary lymphadenopathy Results & Data Results & Data Vital Signs (Past 12 Hours) Vital Signs Temp Pulse Pulse Resp BP Pulse Ox O2 Del Method 12/01/22 15:13 36.4 C L 57 L 20 134/89 98 Oxymask 12/01/22 13:33 Room Air 12/01/22 10:54 36.7 C 65 17 112/77 91 Room Air 12/01/22 07:20 36.2 C L 63 18 131/85 94 Room Air 12/01/22 07:13 65 O2 Flow Rate 12/01/22 15:13 2 12/01/22 13:33 2 12/01/22 10:54 12/01/22 07:20 12/01/22 07:13 Laboratory Results Short CBC 12/01/22 Range/Units 07:12 WBC 8.71 (4.8-10.8) K/ul Hgb 13.5 (12.0-16.0) g/dl Hct 39.3 (37.0-47.0) % Plt Count 211 (130-400) K/uL BMP 12/01/22 07:12 Sodium 136 Potassium 3.6 Chloride 100 Carbon Dioxide 30 BUN 31 H Creatinine 0.84 Glucose 93 Calcium 9.5 Medications Administered Current Inpatient Medications Acetaminophen (Acetaminophen 325 Mg Tab) 650 mg PO Q4H PRN PRN Reason: Pain or Fever Stop: 12/28/22 23:29 Last Admin: 12/01/22 05:30 Dose: 650 mg Aspirin (Aspirin 81 Mg Ectab) 81 mg PO DAILY [facility] Stop: 12/29/22 08:59 Last Admin: 12/01/22 08:49 Dose: 81 mg Clonazepam (Clonazepam 1 Mg Tab) 1 mg PO HS [facility] Stop: 12/29/22 00:14 Last Admin: 11/30/22 21:25 Dose: 1 mg Cyanocobalamin (Cyanocobalamin (B-12) 500 Mcg Tablet) 250 mcg PO DAILY [facility] Stop: 12/29/22 08:59 Last Admin: 12/01/22 08:50 Dose: 250 mcg Doxycycline Hyclate (Doxycycline Hyclate 100 Mg Cap) 100 mg PO BID [facility] Stop: 12/06/22 08:59 Last Admin: 12/01/22 08:50 Dose: 100 mg Enoxaparin Sodium (Enoxaparin Inj 40 Mg/0.4 Ml Syr) 40 mg SQ Q24H [facility] Stop: 12/29/22 14:59 Last Admin: 12/01/22 15:03 Dose: 40 mg Escitalopram Oxalate (Escitalopram Oxalate 10 Mg Tab) 10 mg PO DAILY [facility] Stop: 12/29/22 08:59 Last Admin: 12/01/22 08:50 Dose: 10 mg Furosemide (Furosemide 40 Mg/4 Ml Vial) 40 mg IV BID17 [facility] Stop: 12/03/22 08:59 Last Admin: 12/01/22 08:50 Dose: 40 mg Promethazine HCl 12.5 mg/ (Sodium Chloride) 50.5 mls @ 202 mls/hr IV Q6H PRN PRN Reason: Nausea And Vomiting Stop: 12/28/22 22:19 Ceftriaxone Sodium 2,000 mg/ (Dextrose) 70 mls @ 140 mls/hr IV Q24H [facility] Stop: 12/04/22 20:59 Last Infusion: 11/30/22 21:51 Dose: Infused Levothyroxine Sodium (Levothyroxine Sodium 112 Mcg Tablet) 112 mcg PO DAILYBB [facility] Stop: 12/29/22 06:29 Last Admin: 12/01/22 05:04 Dose: 112 mcg Losartan Potassium (Losartan Potassium 25 Mg Tab) 25 mg PO DAILY [facility] Stop: 12/29/22 08:59 Last Admin: 12/01/22 08:51 Dose: 25 mg Menthol (Cough Drop (Sugar Free) Lor 24 Lor/1 Box) 1 lor BUCCAL NOW PRN PRN Reason: Sore Throat Stop: 12/30/22 22:24 Last Admin: 11/30/22 22:51 Dose: 1 lor Oxybutynin Chloride (Oxybutynin Chloride Xl 5 Mg Tabcr) 5 mg PO QAM [facility] Stop: 12/29/22 08:59 Last Admin: 12/01/22 08:51 Dose: 5 mg Tramadol HCl (Tramadol Hcl 50 Mg Tablet) 25 - 50 mg PO Q4H PRN PRN Reason: Pain Stop: 12/28/22 22:19
[2022-12-01] MEDS: cefTRIAXone SODIUM 2,000 MG in DEXTROSE 5% 50 ML IV SCH (21:28)
[2022-12-01] MEDS: clonazePAM 1 MG TAB PO SCH (21:28)
[2022-12-02 01:56] LABS: Babesia microti DNA Not Detected (Not Detected)
[2022-12-02] MEDS: LEVOTHYROXINE SODIUM 112 MCG TABLET PO SCH (05:56)
[2022-12-02 06:12] LABS: Basophils # (auto) 0.11 K/uL (0-0.2); Basophils % (auto) 1.3 %; Eosinophils # (auto) 0.39 K/uL (0-0.50); Eosinophils % (auto) 4.5 %; Hematocrit (blood only) 37.8 % (37.0-47.0); Hemoglobin 13.1 g/dl (12.0-16.0); Immature Granulocytes # (auto) 0.02 K/uL (0.01-0.20); Immature Granulocytes % (auto) 0.2 %; Lymphocytes % (auto) 31.4 %; Mean Corpuscular Hemoglobin 30.1 pg (25.0-34.0); Mean Corpuscular Hgb Conc 34.7 g/dL (32.0-36.0); Mean Corpuscular Volume 86.9 fL (80.0-100.0); Mean Platelet Volume 10.5 fL (9.4-12.4); Monocytes % (auto) 9.3 %; Neutrophils # (auto) 4.58 K/uL (1.40-6.50); Neutrophils % (auto) 53.3 %; Platelet Count 212 K/uL (130-400); RDW Coefficient of Variation 13.2 % (11.5-14.5); RDW Standard Deviation 42.3 fL (36.4-46.3); Red Blood Count 4.35 M/uL (4.20-5.40)
[2022-12-02 06:26] LABS: BUN Creatinine Ratio 34.9 (10-20); Calcium 9.4 mg/dl (8.6-10.3); Creatinine Clr Calc Pharmacy 55.3 ml/min; Est GFR (African American) 69.4 ml/min; Est GFR (Non-African American) 59.9 ml/min; Potassium 3.5 mmol/L (3.5-5.1)
[2022-12-02] MEDS: CYANOCOBALAMIN (B-12) 500 MCG TABLET PO SCH (08:45)
[2022-12-02] MEDS: ASPIRIN 81 MG ECTAB PO SCH (08:46)
[2022-12-02] MEDS: DOXYCYCLINE HYCLATE 100 MG CAP PO SCH ×2 (08:46→20:27)
[2022-12-02] MEDS: LOSARTAN POTASSIUM 25 MG TAB PO SCH (08:46)
[2022-12-02] MEDS: ESCITALOPRAM OXALATE 10 MG TAB PO SCH (08:46)
[2022-12-02] MEDS: OXYBUTYNIN CHLORIDE XL 5 MG TABCR PO SCH (08:46)
[2022-12-02] MEDS: FUROSEMIDE 40 MG/4 ML VIAL IV SCH ×2 (08:46→18:17)
[2022-12-02] MEDS: ENOXAPARIN INJ 40 MG/0.4 ML SYR SQ SCH (14:24)
--- NOTE | 2022-12-02 14:39 | Hospitalist Progress Note ---
Date of Service December 02, 2022 Assessment & Plan (1) Acute hypoxemic respiratory failure: Plan: Acute respiratory failure with hypoxia Likely multifactorial: Acute Diastolic CHF, obstructive sleep apnea, DD obesity hypoventilation syndrome Mild troponin elevation likely demand ischemia secondary to above --CTA:No CT evidence of pulmonary embolism. --Venous Doppler:No acute findings in the bilateral lower extremity veins. --ECHO: Left ventricle systolic function is normal. No regional wall motion abnormalities noted. Mild concentric LVH. EF 60 to 65%. -- BNP mildly elevated --Continue supplemental oxygen as needed Continue IV Lasix 40mg BID Appreciate cardiology input and recommendation Monitor I's and O's, daily weight, volume status Continue CPAP at bedtime Will obtain nocturnal oximetry study and 2 step prior to discharge Clinically much better and she wants to see the social scientist again on Sunday before discharge Nocturnal pulse oximetry is done-no desaturation events more than 3 minutes Continue current management and get PT and OT evaluation-recommended home We will continue with current dose of furosemide and diuresis Monitor PRP likely discharge on Sunday after she is seen by the social scientist Left leg cellulitis Possible UTI--Less likely Blood, urine cultures:Negative to date Urine Culture: Moderate probable skin mikayla Empirically on Rocephin, doxycycline Clinically improved ELLI Has not been using CPAP since recalled Continue CPAP HS Scheduled for outpatient sleep study as per patient Continue CPAP at nighttime Hypertension Continue losartan Monitor Hyperlipidemia H/O statin intolerance Hypothyroidism Normal TSH Continue levothyroxine Anxiety/mood disorder Continue home medications Morbid obesity BMI 49 DVT Px: Lovenox SQ Code Status Full code Disposition Likely discharge on Sunday Admission and Anticipated Discharge Date Admission Date: November 28, 2022 Subjective 12/01/2022 The patient was seen and examined in telemetry unit She has been stable and denies any chest pain, palpitation or shortness of breath She wants to see the social scientist on Sunday12/02/2022 The patient was seen and examined in telemetry unit in presence of the family members She has been feeling much better Has minimal cough and has been requiring 2 L to maintain saturation Denies any fever and or chills, no chest pain and/or palpitation Review of Systems Review of Systems: All systems reviewed and are unremarkable except as noted below Respiratory: No shortness of breath at rest Cardiovascular: Additional Comments: No cardiac symptoms Physical Exam Physical Exam: Sitting on a chair without any acute distress Constitutional: well developed, well nourished and + obese; not ill appearing Eyes: PERRL, conjunctivae normal, anicteric sclerae ENMT: external ear and nose normal, oropharynx normal Neck: trachea midline, no thyromegaly Respiratory: no respiratory distress Auscultation: + diminished lung sounds and + crackles (Minimal crackles at the bases) Cardiovascular: Rate/Rhythm: regular rate, regular rhythm and + bradycardic Heart Sounds: normal S1 and normal S2; no murmur Extremities: + edema (Trace edema bilaterally) Gastrointestinal (Abdomen): Inspection/Auscultation: + abdomen distended and normal bowel sounds Percussion/Palpation: abdomen soft; abdomen nontender Neurologic: normal touch/pain/proprioception and moves all extremities; no focal motor deficits Psychiatric: A+Ox3, euthymic affect Lymphatic: no cervical or axillary lymphadenopathy Results & Data Results & Data Vital Signs (Past 12 Hours) Vital Signs Temp Pulse Resp BP Pulse Ox O2 Del Method O2 Flow Rate 12/02/22 10:52 36.9 C 80 16 110/74 95 Nasal Cannula 2.0 12/02/22 09:22 Nasal Cannula 2 12/02/22 07:25 36.7 C 67 18 146/82 H 95 Nasal Cannula 2.0 12/02/22 03:17 36.4 C L 63 20 132/84 92 CPAP Laboratory Results Short CBC 12/02/22 Range/Units 05:17 WBC 8.60 (4.8-10.8) K/ul Hgb 13.1 (12.0-16.0) g/dl Hct 37.8 (37.0-47.0) % Plt Count 212 (130-400) K/uL BMP 12/02/22 05:17 Sodium 139 Potassium 3.5 Chloride 101 Carbon Dioxide 32 BUN 30 H Creatinine 0.86 Glucose 93 Calcium 9.4 Medications Administered Current Inpatient Medications Acetaminophen (Acetaminophen 325 Mg Tab) 650 mg PO Q4H PRN PRN Reason: Pain or Fever Stop: 12/28/22 23:29 Last Admin: 12/01/22 21:34 Dose: 650 mg Aspirin (Aspirin 81 Mg Ectab) 81 mg PO DAILY [facility] Stop: 12/29/22 08:59 Last Admin: 12/02/22 08:46 Dose: 81 mg Clonazepam (Clonazepam 1 Mg Tab) 1 mg PO HS [facility] Stop: 12/29/22 00:14 Last Admin: 12/01/22 21:28 Dose: 1 mg Cyanocobalamin (Cyanocobalamin (B-12) 500 Mcg Tablet) 250 mcg PO DAILY [facility] Stop: 12/29/22 08:59 Last Admin: 12/02/22 08:45 Dose: 250 mcg Doxycycline Hyclate (Doxycycline Hyclate 100 Mg Cap) 100 mg PO BID [facility] Stop: 12/06/22 08:59 Last Admin: 12/02/22 08:46 Dose: 100 mg Enoxaparin Sodium (Enoxaparin Inj 40 Mg/0.4 Ml Syr) 40 mg SQ Q24H [facility] Stop: 12/29/22 14:59 Last Admin: 12/02/22 14:24 Dose: 40 mg Escitalopram Oxalate (Escitalopram Oxalate 10 Mg Tab) 10 mg PO DAILY [facility] Stop: 12/29/22 08:59 Last Admin: 12/02/22 08:46 Dose: 10 mg Furosemide (Furosemide 40 Mg/4 Ml Vial) 40 mg IV BID17 [facility] Stop: 12/03/22 08:59 Last Admin: 12/02/22 08:46 Dose: 40 mg Promethazine HCl 12.5 mg/ (Sodium Chloride) 50.5 mls @ 202 mls/hr IV Q6H PRN PRN Reason: Nausea And Vomiting Stop: 12/28/22 22:19 Ceftriaxone Sodium 2,000 mg/ (Dextrose) 70 mls @ 140 mls/hr IV Q24H [facility] Stop: 12/04/22 20:59 Last Infusion: 12/01/22 22:15 Dose: Infused Levothyroxine Sodium (Levothyroxine Sodium 112 Mcg Tablet) 112 mcg PO DAILYBB [facility] Stop: 12/29/22 06:29 Last Admin: 12/02/22 05:56 Dose: 112 mcg Losartan Potassium (Losartan Potassium 25 Mg Tab) 25 mg PO DAILY [facility] Stop: 12/29/22 08:59 Last Admin: 12/02/22 08:46 Dose: 25 mg Menthol (Cough Drop (Sugar Free) Lor 24 Lor/1 Box) 1 lor [facility] NOW PRN PRN Reason: Sore Throat Stop: 12/30/22 22:24 Last Admin: 11/30/22 22:51 Dose: 1 lor Oxybutynin Chloride (Oxybutynin Chloride Xl 5 Mg Tabcr) 5 mg PO QAM [facility] Stop: 12/29/22 08:59 Last Admin: 12/02/22 08:46 Dose: 5 mg Tramadol HCl (Tramadol Hcl 50 Mg Tablet) 25 - 50 mg PO Q4H PRN PRN Reason: Pain Stop: 12/28/22 22:19
[2022-12-02] MEDS: ACETAMINOPHEN 325 MG TAB PO PRN (19:29)
[2022-12-02] MEDS: clonazePAM 1 MG TAB PO SCH (20:27)
[2022-12-02] MEDS: cefTRIAXone SODIUM 2,000 MG in DEXTROSE 5% 50 ML IV SCH (20:27)
[2022-12-03] MEDS: ACETAMINOPHEN 325 MG TAB PO PRN ×2 (04:04→19:25)
[2022-12-03] MEDS: LEVOTHYROXINE SODIUM 112 MCG TABLET PO SCH (05:37)
[2022-12-03 06:01] LABS: Basophils # (auto) 0.11 K/uL (0-0.2); Basophils % (auto) 1.3 %; Eosinophils # (auto) 0.42 K/uL (0-0.50); Hemoglobin 13.3 g/dl (12.0-16.0); Immature Granulocytes # (auto) 0.03 K/uL (0.01-0.20); Immature Granulocytes % (auto) 0.4 %; Lymphocytes # (auto) 2.12 K/uL (1.2-3.4); Lymphocytes % (auto) 25.1 %; Mean Corpuscular Hemoglobin 30.3 pg (25.0-34.0); Mean Corpuscular Hgb Conc 34.1 g/dL (32.0-36.0); Mean Corpuscular Volume 88.8 fL (80.0-100.0); Mean Platelet Volume 10.5 fL (9.4-12.4); Monocytes # (auto) 0.79 K/uL (0.11-0.59); Monocytes % (auto) 9.3 %; Neutrophils # (auto) 4.99 K/uL (1.40-6.50); Neutrophils % (auto) 58.9 %; Platelet Count 201 K/uL (130-400); RDW Coefficient of Variation 13.2 % (11.5-14.5); RDW Standard Deviation 43.5 fL (36.4-46.3); Red Blood Count 4.39 M/uL (4.20-5.40); White Blood Count 8.46 K/ul (4.8-10.8)
[2022-12-03 06:17] LABS: BUN Creatinine Ratio 37.5 (10-20); Calcium 9.3 mg/dl (8.6-10.3); Est GFR (African American) 75.8 ml/min; Est GFR (Non-African American) 65.4 ml/min; Potassium 3.4 mmol/L (3.5-5.1)
[2022-12-03] MEDS ORDERED: POTASSIUM CHLORIDE CRTAB 20 MEQ TABCR PO STA (08:03)
[2022-12-03] MEDS: CYANOCOBALAMIN (B-12) 500 MCG TABLET PO SCH (08:51)
[2022-12-03] MEDS: ASPIRIN 81 MG ECTAB PO SCH (08:51)
[2022-12-03] MEDS: DOXYCYCLINE HYCLATE 100 MG CAP PO SCH ×2 (08:51→20:44)
[2022-12-03] MEDS: ESCITALOPRAM OXALATE 10 MG TAB PO SCH (08:51)
[2022-12-03] MEDS: LOSARTAN POTASSIUM 25 MG TAB PO SCH (08:51)
[2022-12-03] MEDS: OXYBUTYNIN CHLORIDE XL 5 MG TABCR PO SCH (08:52)
[2022-12-03] MEDS: ENOXAPARIN INJ 40 MG/0.4 ML SYR SQ SCH (14:10)
--- NOTE | 2022-12-03 14:39 | Hospitalist Progress Note ---
Date of Service December 03, 2022 Assessment & Plan (1) Acute hypoxemic respiratory failure: Plan: Acute respiratory failure with hypoxia Likely multifactorial: Acute Diastolic CHF, obstructive sleep apnea, DD obesity hypoventilation syndrome Mild troponin elevation likely demand ischemia secondary to above --CTA:No CT evidence of pulmonary embolism. --Venous Doppler:No acute findings in the bilateral lower extremity veins. --ECHO: Left ventricle systolic function is normal. No regional wall motion abnormalities noted. Mild concentric LVH. EF 60 to 65%. -- BNP mildly elevated --Continue supplemental oxygen as needed Continue IV Lasix 40mg BID Appreciate cardiology input and recommendation Monitor I's and O's, daily weight, volume status Continue CPAP at bedtime Will obtain nocturnal oximetry study and 2 step prior to discharge Clinically much better and she wants to see the breading machine tender again on Sunday before discharge Nocturnal pulse oximetry is done-no desaturation events more than 3 minutes Continue current management and get PT and OT evaluation-recommended home We will continue with current dose of furosemide and diuresis Monitor PRP likely discharge on Sunday after she is seen by the breading machine tender Denies any shortness of breath at rest and has been saturating normally on 2 L of oxygen Will start his usual or oral dose of furosemide as an outpatient Left leg cellulitis Possible UTI--Less likely Blood, urine cultures:Negative to date Urine Culture: Moderate probable skin mikayla Empirically on Rocephin, doxycycline Clinically improved ELLI Has not been using CPAP since recalled Continue CPAP HS Scheduled for outpatient sleep study as per patient Continue CPAP at nighttime Hypertension Continue losartan Monitor Hyperlipidemia H/O statin intolerance Hypothyroidism Normal TSH Continue levothyroxine Anxiety/mood disorder Continue home medications Morbid obesity BMI 49 DVT Px: Lovenox SQ Code Status Full code Disposition Likely discharge on Sunday Admission and Anticipated Discharge Date Admission Date: November 28, 2022 Subjective 12/01/2022 The patient was seen and examined in telemetry unit She has been stable and denies any chest pain, palpitation or shortness of breath She wants to see the breading machine tender on Sunday12/02/2022 The patient was seen and examined in telemetry unit in presence of the family members She has been feeling much better Has minimal cough and has been requiring 2 L to maintain saturation Denies any fever and or chills, no chest pain and/or palpitation 12/03/2022 The patient was seen and examined in telemetry unit She has been feeling much better and is ready to be discharged She will be seen by breading machine tender tomorrow before going home Review of Systems Review of Systems: All systems reviewed and are unremarkable except as noted below Respiratory: No shortness of breath at rest Cardiovascular: Additional Comments: No cardiac symptoms Physical Exam Physical Exam: Sitting on a chair without any acute distress Constitutional: well developed, well nourished and + obese; not ill appearing Eyes: PERRL, conjunctivae normal, anicteric sclerae ENMT: external ear and nose normal, oropharynx normal Neck: trachea midline, no thyromegaly Respiratory: no respiratory distress Auscultation: + diminished lung sounds and + crackles (Minimal crackles at the bases) Cardiovascular: Rate/Rhythm: regular rate, regular rhythm and + bradycardic Heart Sounds: normal S1 and normal S2; no murmur Extremities: + edema (Trace edema bilaterally) Gastrointestinal (Abdomen): Inspection/Auscultation: + abdomen distended and normal bowel sounds Percussion/Palpation: abdomen soft; abdomen nontender Neurologic: normal touch/pain/proprioception and moves all extremities; no focal motor deficits Psychiatric: A+Ox3, euthymic affect Lymphatic: no cervical or axillary lymphadenopathy Results & Data Results & Data Vital Signs (Past 12 Hours) Vital Signs Temp Pulse Resp BP Pulse Ox O2 Del Method O2 Flow Rate 12/03/22 11:54 Nasal Cannula 2 12/03/22 11:08 36.6 C 64 18 119/79 97 Nasal Cannula 2.0 12/03/22 07:16 36.7 C 70 16 143/68 H 96 Nasal Cannula 2.0 12/03/22 03:03 36.7 C 60 18 121/72 94 Nasal Cannula 2 Laboratory Results Short CBC 12/03/22 Range/Units 05:21 WBC 8.46 (4.8-10.8) K/ul Hgb 13.3 (12.0-16.0) g/dl Hct 39.0 (37.0-47.0) % Plt Count 201 (130-400) K/uL BMP 12/03/22 05:21 Sodium 140 Potassium 3.4 L Chloride 102 Carbon Dioxide 33 H BUN 30 H Creatinine 0.80 Glucose 99 Calcium 9.3 Medications Administered Current Inpatient Medications Acetaminophen (Acetaminophen 325 Mg Tab) 650 mg PO Q4H PRN PRN Reason: Pain or Fever Stop: 12/28/22 23:29 Last Admin: 12/03/22 04:04 Dose: 650 mg Aspirin (Aspirin 81 Mg Ectab) 81 mg PO DAILY [facility] Stop: 12/29/22 08:59 Last Admin: 12/03/22 08:51 Dose: 81 mg Clonazepam (Clonazepam 1 Mg Tab) 1 mg PO HS [facility] Stop: 12/29/22 00:14 Last Admin: 12/02/22 20:27 Dose: 1 mg Cyanocobalamin (Cyanocobalamin (B-12) 500 Mcg Tablet) 250 mcg PO DAILY [facility] Stop: 12/29/22 08:59 Last Admin: 12/03/22 08:51 Dose: 250 mcg Doxycycline Hyclate (Doxycycline Hyclate 100 Mg Cap) 100 mg PO BID [facility] Stop: 12/06/22 08:59 Last Admin: 12/03/22 08:51 Dose: 100 mg Enoxaparin Sodium (Enoxaparin Inj 40 Mg/0.4 Ml Syr) 40 mg SQ Q24H [facility] Stop: 12/29/22 14:59 Last Admin: 12/03/22 14:10 Dose: 40 mg Escitalopram Oxalate (Escitalopram Oxalate 10 Mg Tab) 10 mg PO DAILY [facility] Stop: 12/29/22 08:59 Last Admin: 12/03/22 08:51 Dose: 10 mg Promethazine HCl 12.5 mg/ (Sodium Chloride) 50.5 mls @ 202 mls/hr IV Q6H PRN PRN Reason: Nausea And Vomiting Stop: 12/28/22 22:19 Ceftriaxone Sodium 2,000 mg/ (Dextrose) 70 mls @ 140 mls/hr IV Q24H [facility] Stop: 12/04/22 20:59 Last Infusion: 12/02/22 21:08 Dose: Infused Levothyroxine Sodium (Levothyroxine Sodium 112 Mcg Tablet) 112 mcg PO DAILYBB [facility] Stop: 12/29/22 06:29 Last Admin: 12/03/22 05:37 Dose: 112 mcg Losartan Potassium (Losartan Potassium 25 Mg Tab) 25 mg PO DAILY [facility] Stop: 12/29/22 08:59 Last Admin: 12/03/22 08:51 Dose: 25 mg Menthol (Cough Drop (Sugar Free) Lor 24 Lor/1 Box) 1 lor [facility] NOW PRN PRN Reason: Sore Throat Stop: 12/30/22 22:24 Last Admin: 11/30/22 22:51 Dose: 1 lor Oxybutynin Chloride (Oxybutynin Chloride Xl 5 Mg Tabcr) 5 mg PO QAM [facility] Stop: 12/29/22 08:59 Last Admin: 12/03/22 08:52 Dose: 5 mg Tramadol HCl (Tramadol Hcl 50 Mg Tablet) 25 - 50 mg PO Q4H PRN PRN Reason: Pain Stop: 12/28/22 22:19
[2022-12-03] MEDS: FUROSEMIDE 20 MG TAB PO SCH (20:44)
[2022-12-03] MEDS: clonazePAM 1 MG TAB PO SCH (20:48)
[2022-12-03] MEDS: cefTRIAXone SODIUM 2,000 MG in DEXTROSE 5% 50 ML IV SCH (20:48)
[2022-12-04] MEDS: LEVOTHYROXINE SODIUM 112 MCG TABLET PO SCH (05:55)
[2022-12-04 07:17] LABS: BUN Creatinine Ratio 32.9 (10-20); Calcium 9.4 mg/dl (8.6-10.3); Creatinine Clr Calc Pharmacy 69.4 ml/min; Est GFR (Non-African American) 76.8 ml/min; Potassium 3.9 mmol/L (3.5-5.1)
[2022-12-04] MEDS: DOXYCYCLINE HYCLATE 100 MG CAP PO SCH (09:19)
[2022-12-04] MEDS: LOSARTAN POTASSIUM 25 MG TAB PO SCH (09:19)
[2022-12-04] MEDS: ESCITALOPRAM OXALATE 10 MG TAB PO SCH (09:19)
[2022-12-04] MEDS: CYANOCOBALAMIN (B-12) 500 MCG TABLET PO SCH (09:19)
[2022-12-04] MEDS: ASPIRIN 81 MG ECTAB PO SCH (09:19)
[2022-12-04] MEDS: FUROSEMIDE 20 MG TAB PO SCH (09:19)
[2022-12-04] MEDS: OXYBUTYNIN CHLORIDE XL 5 MG TABCR PO SCH (09:19)
--- NOTE | 2022-12-04 12:33 | Hospitalist Progress Note ---
Date of Service December 04, 2022 Assessment & Plan (1) Acute hypoxemic respiratory failure: Plan: Acute respiratory failure with hypoxia Likely multifactorial: Acute Diastolic CHF, obstructive sleep apnea, DD obesity hypoventilation syndrome Mild troponin elevation likely demand ischemia secondary to above --CTA:No CT evidence of pulmonary embolism. --Venous Doppler:No acute findings in the bilateral lower extremity veins. --ECHO: Left ventricle systolic function is normal. No regional wall motion abnormalities noted. Mild concentric LVH. EF 60 to 65%. -- BNP mildly elevated --Continue supplemental oxygen as needed Continue IV Lasix 40mg BID Appreciate cardiology input and recommendation Monitor I's and O's, daily weight, volume status Continue CPAP at bedtime Will obtain nocturnal oximetry study and 2 step prior to discharge Clinically much better and she wants to see the doctor of podiatric medicine again on Sunday before discharge Nocturnal pulse oximetry is done-no desaturation events more than 3 minutes Continue current management and get PT and OT evaluation-recommended home We will continue with current dose of furosemide and diuresis Monitor PRP likely discharge on Sunday after she is seen by the doctor of podiatric medicine Denies any shortness of breath at rest and has been saturating normally on 2 L of oxygen Will start his usual or oral dose of furosemide as an outpatient Was seen by doctor of podiatric medicine and cleared to go home She does not require any oxygen with ambulation as per the to a step saturation test Be discharged home this afternoon Left leg cellulitis Possible UTI--Less likely Blood, urine cultures:Negative to date Urine Culture: Moderate probable skin mikayla Empirically on Rocephin, doxycycline Clinically improved -we will continue doxycycline to finish the 10 days course ELLI Has not been using CPAP since recalled Continue CPAP HS Scheduled for outpatient sleep study as per patient Continue CPAP at nighttime Hypertension Continue losartan Monitor Hyperlipidemia H/O statin intolerance Hypothyroidism Normal TSH Continue levothyroxine Anxiety/mood disorder Continue home medications Morbid obesity BMI 49 DVT Px: Lovenox SQ Code Status Full code Disposition Will be discharged this afternoon Admission and Anticipated Discharge Date Admission Date: November 28, 2022 Subjective 12/01/2022 The patient was seen and examined in telemetry unit She has been stable and denies any chest pain, palpitation or shortness of breath She wants to see the doctor of podiatric medicine on Sunday12/02/2022 The patient was seen and examined in telemetry unit in presence of the family members She has been feeling much better Has minimal cough and has been requiring 2 L to maintain saturation Denies any fever and or chills, no chest pain and/or palpitation 12/03/2022 The patient was seen and examined in telemetry unit She has been feeling much better and is ready to be discharged She will be seen by doctor of podiatric medicine tomorrow before going home 12/04/2022 The patient was seen and examined in telemetry unit She has been feeling much better and has had a 2 step O2 saturation test and she does not require any oxygen with activity Denies any cardiac symptoms and was seen by the doctor of podiatric medicine Review of Systems Review of Systems: All systems reviewed and are unremarkable except as noted below Respiratory: No shortness of breath at rest Cardiovascular: Additional Comments: No cardiac symptoms Physical Exam Physical Exam: Sitting on a chair without any acute distress Constitutional: well developed, well nourished and + obese; not ill appearing Eyes: PERRL, conjunctivae normal, anicteric sclerae ENMT: external ear and nose normal, oropharynx normal Neck: trachea midline, no thyromegaly Respiratory: no respiratory distress Auscultation: lungs clear to auscul tation bilaterally; no crackles (Minimal crackles at the bases) Cardiovascular: Rate/Rhythm: regular rate, regular rhythm and + bradycardic Heart Sounds: normal S1 and normal S2; no murmur Extremities: no edema Gastrointestinal (Abdomen): Inspection/Auscultation: + abdomen distended and normal bowel sounds Percussion/Palpation: abdomen soft; abdomen nontender Neurologic: normal touch/pain/proprioception and moves all extremities; no focal motor deficits Psychiatric: A+Ox3, euthymic affect Lymphatic: no cervical or axillary lymphadenopathy Results & Data Results & Data Vital Signs (Past 12 Hours) Vital Signs Temp Pulse Pulse Pulse Resp Resp Resp 12/04/22 11:04 36.6 C 61 18 12/04/22 10:32 87 67 21 17 12/04/22 07:10 36.4 C L 63 19 12/04/22 03:19 36.4 C L 58 L 18 BP Pulse Ox Pulse Ox Pulse Ox O2 Del Method O2 Flow Rate 12/04/22 11:04 149/76 H 94 Room Air 12/04/22 10:32 92 94 12/04/22 07:10 120/83 98 Nasal Cannula 2 12/04/22 03:19 115/70 96 CPAP Laboratory Results BMP 12/04/22 06:37 Sodium 138 Potassium 3.9 Chloride 101 Carbon Dioxide 33 H BUN 23 Creatinine 0.70 Glucose 95 Calcium 9.4 Medications Administered Current Inpatient Medications Acetaminophen (Acetaminophen 325 Mg Tab) 650 mg PO Q4H PRN PRN Reason: Pain or Fever Stop: 12/28/22 23:29 Last Admin: 12/03/22 19:25 Dose: 650 mg Aspirin (Aspirin 81 Mg Ectab) 81 mg PO DAILY [facility] Stop: 12/29/22 08:59 Last Admin: 12/04/22 09:19 Dose: 81 mg Clonazepam (Clonazepam 1 Mg Tab) 1 mg PO HS [facility] Stop: 12/29/22 00:14 Last Admin: 12/03/22 20:48 Dose: 1 mg Cyanocobalamin (Cyanocobalamin (B-12) 500 Mcg Tablet) 250 mcg PO DAILY [facility] Stop: 12/29/22 08:59 Last Admin: 12/04/22 09:19 Dose: 250 mcg Doxycycline Hyclate (Doxycycline Hyclate 100 Mg Cap) 100 mg PO BID [facility] Stop: 12/06/22 08:59 Last Admin: 12/04/22 09:19 Dose: 100 mg Enoxaparin Sodium (Enoxaparin Inj 40 Mg/0.4 Ml Syr) 40 mg SQ Q24H [facility] Stop: 12/29/22 14:59 Last Admin: 12/03/22 14:10 Dose: 40 mg Escitalopram Oxalate (Escitalopram Oxalate 10 Mg Tab) 10 mg PO DAILY [facility] Stop: 12/29/22 08:59 Last Admin: 12/04/22 09:19 Dose: 10 mg Furosemide (Furosemide 20 Mg Tab) 20 mg PO BID [facility] Stop: 01/02/23 20:59 Last Admin: 12/04/22 09:19 Dose: 20 mg Promethazine HCl 12.5 mg/ (Sodium Chloride) 50.5 mls @ 202 mls/hr IV Q6H PRN PRN Reason: Nausea And Vomiting Stop: 12/28/22 22:19 Ceftriaxone Sodium 2,000 mg/ (Dextrose) 70 mls @ 140 mls/hr IV Q24H [facility] Stop: 12/04/22 20:59 Last Infusion: 12/03/22 21:30 Dose: Infused Levothyroxine Sodium (Levothyroxine Sodium 112 Mcg Tablet) 112 mcg PO DAILYBB [facility] Stop: 12/29/22 06:29 Last Admin: 12/04/22 05:55 Dose: 112 mcg Losartan Potassium (Losartan Potassium 25 Mg Tab) 25 mg PO DAILY [facility] Stop: 12/29/22 08:59 Last Admin: 12/04/22 09:19 Dose: 25 mg Menthol (Cough Drop (Sugar Free) Lor 24 Lor/1 Box) 1 lor [facility] NOW PRN PRN Reason: Sore Throat Stop: 12/30/22 22:24 Last Admin: 11/30/22 22:51 Dose: 1 lor Oxybutynin Chloride (Oxybutynin Chloride Xl 5 Mg Tabcr) 5 mg PO QAM [facility] Stop: 12/29/22 08:59 Last Admin: 12/04/22 09:19 Dose: 5 mg Tramadol HCl (Tramadol Hcl 50 Mg Tablet) 25 - 50 mg PO Q4H PRN PRN Reason: Pain Stop: 12/28/22 22:19
[2022-12-04 15:13] LABS: Ehrlichia chaff DNA Bld Negative (Negative)
--- NOTE | 2022-12-05 07:18 | Discharge Summary ---
Date of Service December 05, 2022 Admission HPI Per Admitting Provider History obtained from patient, family, and records. Medical history significant for hypertension, hyperlipidemia, GERD, NAFLD, hypothyroidism, ELLI (not currently on CPAP due to device recall), anxiety/mood disorder. Last confinement 2016 for acute diverticulitis with microperforation. No surgical intervention. 3 weeks history of worsening bilateral leg swelling, easy fatigability. Patient initially without shortness of breath symptoms. Patient advised by PCP to increase home diuretic dose. Outpatient blood work showed abnormal D-dimer. Patient sent for venous leg Dopplers and outpatient CT chest. Patient consulted ER 3 days ago for worsening leg swelling. LE venous Doppler showed left-sided Ring's cyst without DVT. Patient advised to increase home Lasix dose from 20 mg to 40 mg daily. Worsening symptoms despite compliance with instructions. Low-grade fever at home as per family. Legs weeping with some redness on the left lower leg. Denies headache, chest pain, cough, abdominal pain, dysuria symptoms. Patient admits to unquantified weight gain over the last few weeks. Lowest O2 sats of 87 on room air documented at the ER. IV ceftriaxone administered at the ER. 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 Admission Exam Per Admitting Provider Physical Exam: GENERAL: Slightly uncomfortable, morbidly obese, no respiratory distress SKIN: Normal color, warm HEENT: [place] palpebral conjunctivae, no ptosis, dry buccal mucosa, nasal cannula in place NECK : Supple, short neck, no tenderness CHEST : Decreased breath sounds, no tenderness HEART : RRR, no obvious murmurs ABDOMEN: Marked distention, nontender EXTREMITIES : Bilateral LE swelling, minimal LLE erythema/tenderness, no other conspicuous deformities noted NEUROLOGIC : Coherent, no facial asymmetry, mild hearing impairment, no other gross focality Principal Diagnosis Acute hypoxemic respiratory failure, acute diastolic CHF, sleep apnea, left leg cellulitis Discharge Exam Sitting on a chair without any acute distress Constitutional well developed, well nourished and + obese; not ill appearing Eyes PERRL, conjunctivae normal, anicteric sclerae ENMT external ear and nose normal, oropharynx normal Neck trachea midline, no thyromegaly Respiratory no respiratory distress Auscultation: lungs clear to auscultation bilaterally and + diminished lung sounds; no crackles (Minimal crackles at the bases) Cardiovascular Rate/Rhythm: regular rate, regular rhythm and + bradycardic Heart Sounds: normal S1 and normal S2; no murmur Extremities: no edema Gastrointestinal (Abdomen) Inspection/Auscultation: + abdomen distended and normal bowel sounds Percussion/Palpation: abdomen soft; abdomen nontender Neurologic normal touch/pain/proprioception and moves all extremities; no focal motor deficits Psychiatric A+Ox3, euthymic affect Lymphatic no cervical or axillary lymphadenopathy Discharge Data Allergies Allergy/AdvReac Type Severity Reaction Status Date / Time atorvastatin Allergy Severe WHEEZING/RESP Verified 11/28/22 17:06 DIFFICULTY ciprofloxacin Allergy Severe SHORT OF Verified 11/28/22 17:06 BREATH/RASH amoxicillin Allergy Intermediate Hives Verified 11/28/22 17:06 Iodinated Contrast Media Allergy Intermediate HIVES Verified 11/28/22 17:06 iodine Allergy Intermediate Hives Verified 11/28/22 17:06 Sulfa (Sulfonamide Allergy Intermediate SHORT OF Verified 11/28/22 17:06 Antibiotics) BREATH/RASH escitalopram Allergy Unknown UNKNOWN Verified 11/28/22 17:06 PER [facility] MED LIST niacin Allergy Unknown UNKNOWN Verified 11/28/22 17:06 PER [facility] MED LIST lisinopril AdvReac Intermediate Gastrointestinal Verified 11/28/22 17:06 Upset Consultations 11/28/22 20:29 ED Decision to Admit Stat 11/29/22 00:03 Consult Cardiology Routine Ordered Studies 11/28/22 21:43 CT angio chest PE protocol Stat Hospital Course (1) Acute hypoxemic respiratory failure: Acute respiratory failure with hypoxia Likely multifactorial: Acute Diastolic CHF, obstructive sleep apnea, DD obesity hypoventilation syndrome Mild troponin elevation likely demand ischemia secondary to above --CTA:No CT evidence of pulmonary embolism. --Venous Doppler:No acute findings in the bilateral lower extremity veins. --ECHO: Left ventricle systolic function is normal. No regional wall motion abnormalities noted. Mild concentric LVH. EF 60 to 65%. -- BNP mildly elevated --Continue supplemental oxygen as needed Continue IV Lasix 40mg BID Appreciate cardiology input and recommendation Monitor I's and O's, daily weight, volume status Continue CPAP at bedtime Will obtain nocturnal oximetry study and 2 step prior to discharge Clinically much better and she wants to see the independent living specialist again on Sunday before discharge Nocturnal pulse oximetry is done-no desaturation events more than 3 minutes Continue current management and get PT and OT evaluation-recommended home We will continue with current dose of furosemide and diuresis Monitor PRP likely discharge on Sunday after she is seen by the independent living specialist Denies any shortness of breath at rest and has been saturating normally on 2 L of oxygen Will start his usual or oral dose of furosemide as an outpatient Was seen by independent living specialist and cleared to go home She does not require any oxygen with ambulation as per the to a step saturation test Be discharged home this afternoon Left leg cellulitis Possible UTI--Less likely Blood, urine cultures:Negative to date Urine Culture: Moderate probable skin mikayla Empirically on Rocephin, doxycycline Clinically improved -we will continue doxycycline to finish the 10 days course ELLI Has not been using CPAP since recalled Continue CPAP HS Scheduled for outpatient sleep study as per patient Continue CPAP at nighttime Hypertension Continue losartan Monitor Hyperlipidemia H/O statin intolerance Hypothyroidism Normal TSH Continue levothyroxine Anxiety/mood disorder Continue home medications Morbid obesity BMI 49 DVT Px: Lovenox SQ Code Status Full code Disposition Will be discharged this afternoon Total Time Total Time Spent Total Time Spent (In Minutes): 35 minutes Discharge Plan Discharge Items Patient Disposition: Home - Self-Care Reason For Visit: RESP FAILURE Discharge Diagnosis: Acute hypoxemic respiratory failure, acute diastolic CHF, sleep apnea, left leg cellulitis Condition on Discharge: Good Activity: Resume your previous activity Non-emergency contact: Primary Care Provider Call non-emergency contact if: you have any medication questions and your symptoms worsen Follow-up/Referrals: Leia Torres MD [Primary Care Provider] - (Date & Time 12/11/2022 11:00 AM Provider Leia Torres MD Department [facility] ) Diet: Heart Healthy Fluids: 1800ml (7 cups) Addtl Attending Provider Instructions: Please take precautions to avoid falls Please take your medications as advised Keep your appointment with healthcare providers Pending Studies at Discharge: No Stand-Alone Forms: [employer], Smoking Cessation Medications and DC Order Prescriptions: New doxycycline hyclate 100 mg Capsule 100 mg PO BID 4 Days Qty: 8 0RF Continued (DME) CPAP Machine Misc See Rx Instructions .ROUTE .MEDSUPPLY Qty: 1 0RF Rx Instructions: PLEASE CHECK HER CPAP TO SEE IF FUNCTIONAL.CHANGE TO AUTO CPAP MIN 6 MAX 16. CPAP SUPPLIES. CPAP MASK OF CHOICE. DIANE 99. CARE PLUS O2. (DME) compr.stocking,knee,long,x-lrg Misc See Rx Instructions .ROUTE .MEDSUPPLY Qty: 2 0RF Rx Instructions: As directed ascorbic acid (vitamin C) [Vitamin C] 1,000 mg Tablet 1 g PO QAM losartan 25 mg tablet 25 mg PO DAILY cyanocobalamin (vitamin B-12) [Vitamin B-12] 250 mcg Tablet 250 mcg PO DAILY aspirin 81 mg Tablet,Delayed Release (Dr/Ec) 81 mg PO DAILY meloxicam 7.5 mg tablet 7.5 mg PO QAM oxybutynin chloride 5 mg tablet extended release 24hr 5 mg PO QAM furosemide [Lasix] 20 mg Tablet 20 mg PO BID vitamin E 268 mg (400 unit) Capsule 268 mg PO DAILY levothyroxine 112 mcg tablet 112 mcg PO DAILYBB omega [id number]-fish oil [Fish Oil] 1,000 mg (120 mg-180 mg) Capsule 1 cap PO QAM clonazepam 1 mg tablet 1 mg PO HS escitalopram oxalate 10 mg tablet 10 mg PO DAILY Rx Instructions: ON [facility] MED LIST Discharge Orders: Discharge Order (Routine); Ordered 12/04/22 Ordered By: Nico Chakraborty Discharge Order- CHF (Routine); Ordered 12/04/22 Ordered By: Nico Chakraborty Admission Data Admit Date/Time: 11/28/22 22:18 Attending Provider: Nico Chakraborty Admit Provider: Eliu Jurado Primary Care Provider: Leia Torres Other Providers: Eliu Jurado ; Boris Llanes ; Calderon Forrester Other Interventions: Discharge Summary Assessment (RN) Last Done: 12/04/22 14:23
[2022-12-05 17:47] LABS: Q Fever IgG, Phase I NEGATIVE; Q Fever Phase I IgM Antibody NEGATIVE; Q Fever Phase II IgG Antibody NEGATIVE; Q Fever Phase II IgM Antibody NEGATIVE; R. typhi IgG Ab NOT DETECTED; R. typhi IgM Ab NOT DETECTED; RMSF IgG Ab NOT DETECTED; RMSF IgM Ab NOT DETECTED
== END 2022-12-04 14:24 | disposition home health service (06) | DRG 291 ==
LOC: ED 15:14 → 2S 22:18 → SUATTDRO 22:18 → 2S 23:13

== ENCOUNTER 2023-01-13 12:18 | Inpatient (IN) ==
--- NOTE | 2023-01-13 12:29 | Emergency Department Note ---
Impression & Plan Fracture of distal end of fibula, Ambulatory dysfunction, Ankle fracture, left ED Provider Note NAME: STERLING BARBA AGE: 87 SEX: F ARRIVES VIA: Ambulance INFORMANT: Patient ED PROVIDER(S): Jad Carrera MD CHIEF COMPLAINT: Fall, ankle pain. PLAN: Disposition: Admit MEDICAL DECISION MAKING: The patient is a pleasant 87-year-old woman with a past medical history of hypertension, hyperlipidemia, GERD, NAFLD, hypothyroidism, ELLI not on CPAP, mood disorder, who presents emerged department via EMS for fall in the setting of having generalized weakness and amatory dysfunction over the past couple of months where she was seen in this emergency department admitted at the end of November for the same. She has had home therapy and had been improving with her rory ir/walker. Today she was time to go into the bathroom and her left leg gave out and she twisted her left ankle. She reports left hip and left ankle pain. Otherwise they deny any fevers, chills, cough, congestion, GI or symptoms. On arrival the patient is no acute distress, afebrile with blood pressure 170/80s in setting of her discomfort and vital signs are otherwise stable. She has limited range of motion of the left hip secondary to pain without gross deformity. There is mild tenderness within the left inguinal region. She has ecchymosis and tenderness of the left ankle medial malleolus with range of motion intact though causes pain. Distal PMS is intact. She has no midline CTL spine tenderness palpation or step-offs. Plain films of the left ankle demonstrate a Ku C fibular fracture with suspected injury of the syndesmosis. Plan films of the pelvis and left hip negative for fracture or dislocation. EKG without overt acute ischemia. CXR negative for acute cardiopulmonary process. WBC, H/H and platelets within normal limits. Chemistry without metabolic acidosis. Electrolytes and LFTs without significant abnormality. UA without evidence of infection. Case d/w Dr. Winter, orthopedics, who reviewed the patient's images. Appreciate consultation recommendations. Patient typically could be seen in follow-up outpatient after splinting with posterior and sugar-tong splint and can be touchdown weightbearing as tolerated. However, given the patient's baseline ambulatory dysfunction now further limited by her ankle fracture the patient and family agree with plan for admission for further management and possibly placement. Case was discussed with Waldemar Hong, with Waldemar Rucker hospitalist who will evaluate the patient for admission. Splint subsequently placed by emergency department respiratory therapy technician per my direction and with my daycare assistant. Triage Nursing notes reviewed and agree them. Prior/outside medical records reviewed Vital Signs: reviewed Differential diagnosis: Fracture, dislocation, contusion, intra-abdominal, pneumothorax, intrathoracic, intracranial, neurologic, compartment syndrome, rhabdomyolysis, as well as other pathologies. ER treatment provided: See below. Diagnostics interpreted by me: ECG: Normal sinus rhythm, 64 bpm, no ectopy, no overt ST elevation or depression, QTc 433, QRS 84 Cardiac Monitoring: An order for continuous cardiac monitoring was placed and demonstrated Normal sinus rhythm, 64 bpm, no ectopy. Laboratory studies: See below Imaging studies: See below Consultation(s): Dr. Winter, orthopedics Case was discussed with Waldemar Hong, with Waldemar Rucker who will evaluate the patient for admission. HPI: The patient is a pleasant 87-year-old woman with a past medical history of hypertension, hyperlipidemia, GERD, NAFLD, hypothyroidism, ELLI not on CPAP, mood disorder, who presents emerged department via EMS for fall in the setting of having generalized weakness and amatory dysfunction over the past couple of months where she was seen in this emergency department admitted at the end of November for the same. She has had home therapy and had been improving with her chair/walker. Today she was time to go into the bathroom and her left leg gave out and she twisted her left ankle. She reports left hip and left ankle pain. Otherwise they deny any fevers, chills, cough, congestion, GI or symptoms. ROS: See above HPI for pertinent positives & negatives. A total of 10 systems reviewed and were otherwise negative. VITALS:See Below PHYSICAL EXAMINATION: GENERAL: Awake, alert, uncomfortable-appearing, in no distress BMI 44.1. HENT: Normocephalic, atraumatic. Oropharynx unremarkable. EYES: Normal conjunctiva. Sclera non-icteric. NECK: Supple. No nuchal rigidity. FROM. No JVD. RESPIRATORY: Clear to auscultation. CARDIAC: Regular rate, normal rhythm. Extremities warm and well perfused. Pulses equal. ABDOMEN: Soft, non-distended. No tenderness to palpation. No rebound or guarding. No masses. RECTAL: Deferred. MUSCULOSKELETAL: Chest examination reveals no tenderness. The back is symmetrical on inspection without obvious abnormality. No midline tenderness to palpation or step-offs. There is no CVA tenderness to palpation. Limited range of motion of the left hip secondary to pain without gross deformity. There is mild tenderness within the left inguinal region. She has ecchymosis and tenderness of the left ankle medial malleolus with range of motion intact though causes pain. Distal PMS is intact. LOWER EXTREMITIES: Calves are equal size bilaterally and non-tender. No edema. No discoloration. NEURO: Normal sensorium. No sensory or motor deficits noted. SKIN: No rash or jaundice noted. ED COURSE: Procedures: Splint Care: After the ortho glass splint was placed by the smoking tobacco cutter operator, I examined the splint and confirmed proper application/placement/position. Neurovascular status was intact both proximal and distal to the splinted area. 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 Chronic osteoarthritis Colitis Cyst of kidney, acquired Cyst of pancreas Depression with anxiety Diverticular disease Fatty liver GERD (gastroesophageal reflux disease) History of cholecystitis HTN (hypertension) Hyperlipemia Hypothyroidism Lower extremity edema Migraine Morbid obesity with BMI of 45.0-49.9, adult Obstructive sleep apnea cpap Overactive bladder Self-catheterizes urinary bladder in the am and at night d/t ureters being cut during hysterectomy--pt states she can still void as well Status post fall Surgical History H/O colonoscopy with polypectomy H/O: hysterectomy ONEIL BSO ~pt states she had the surgery done at 1974 @ [facility] [place], pt states that "they accidentally cut my kidney tubes and I have to catherize myself every day twice a day since then" History of appendectomy History of bilateral cataract extraction History of detached retina repair right History of dilatation and curettage History of esophagogastroduodenoscopy (EGD) History of knee replacement procedure of right knee (~2006) History of lumbar spinal fusion History of sinus surgery History of tooth extraction all teeth Family History Son Colorectal cancer Hypertension Mother Ovarian cancer Diabetes Grandmother (Paternal) Hypertension Grandmother (Maternal) Heart disease Stroke Son Family hx colonic polyps Son Family hx colonic polyps Other No family history of adverse response to anesthesia Denies family history of Prostate cancer Myocardial infarction Breast cancer Social History Smoking Status: Never smoker Second Hand Exposure: No; Do You Dip or Chew Tobacco: No; Hx Alcohol Use: No Hx Substance Use: No Preferred Language: Slovenian Communication Ability: Effective Visual Impairment: No Limitations Hearing Ability: Normal Director Social Service Required: No Beliefs That Will Affect Care: None marital status: Current Living Situation: Spouse current occupational status: retired How many Children do You have: 5 Feels Safe at Home: Yes Childhood Exposure to Second-Hand Smoke: Yes caffeine: Yes Dental Care, Regularly: No Physical Activity Frequency: 1-2 Times per Week Seatbelt Use: always Sunscreen Use: Yes Assistive Devices: Walker Allergies Allergies Allergy/AdvReac Type Severity Reaction Status Date / Time atorvastatin Allergy Severe WHEEZING/RESP Verified 12/20/22 14:02 DIFFICULTY ciprofloxacin Allergy Severe SHORT OF Verified 12/20/22 14:02 BREATH/RASH amoxicillin Allergy Intermediate Hives Verified 12/20/22 14:02 Iodinated Contrast Media Allergy Intermediate HIVES Verified 12/20/22 14:02 iodine Allergy Intermediate Hives Verified 12/20/22 14:02 Sulfa (Sulfonamide Allergy Intermediate SHORT OF Verified 12/20/22 14:02 Antibiotics) BREATH/RASH escitalopram Allergy Unknown UNKNOWN Verified 12/20/22 14:02 PER [facility] MED LIST niacin Allergy Unknown UNKNOWN Verified 12/20/22 14:02 PER [facility] MED LIST lisinopril AdvReac Intermediate Gastrointestinal Verified 12/20/22 14:02 Upset Home Meds Home Medications Medication Instructions Recorded Confirmed ascorbic acid (vitamin C) 1,000 mg 1 g PO QAM 02/24/20 01/13/23 tablet (Vitamin C) aspirin 81 mg tablet,delayed 81 mg PO DAILY 11/28/22 01/13/23 release clonazepam 1 mg tablet 1 mg PO HS 11/28/22 01/13/23 cyanocobalamin (vitamin B-12) 250 250 mcg PO DAILY 11/28/22 01/13/23 mcg tablet (Vitamin B-12) escitalopram oxalate 10 mg tablet 10 mg PO DAILY 11/28/22 01/13/23 furosemide 20 mg tablet (Lasix) 20 mg PO BID 11/28/22 01/13/23 levothyroxine 112 mcg tablet 112 mcg PO DAILYBB 11/28/22 01/13/23 losartan 25 mg tablet 25 mg PO DAILY 11/28/22 01/13/23 meloxicam 7.5 mg tablet 7.5 mg PO QAM 11/28/22 01/13/23 omega 5-aus-cdf-fish oil 1,000 mg 1 cap PO QAM 11/28/22 01/13/23 (120 mg-180 mg) capsule (Fish Oil) oxybutynin chloride 5 mg 5 mg PO QAM 11/28/22 01/13/23 tablet,extended release 24 hr vitamin E 268 mg (400 unit) capsule 268 mg PO DAILY 11/28/22 01/13/23 rosuvastatin 10 mg tablet 10 mg PO DAILY 01/13/23 01/13/23 Previous Rx's Medication Instructions Recorded CPAP Machine #1 ea 06/30/19 compr.stocking,knee,long,x-lrg #2 ea 05/10/20 Results & Data (ED) Vital Signs Vital Signs - 24 hr 01/13/23 12:35 01/13/23 12:35 01/13/23 13:46 Temperature 36.5 C 36.5 C Temperature Source Oral Oral Pulse Rate 63 Pulse Rate [Bilateral] 64 Respiratory Rate 18 18 Respiratory Depth Normal Respiratory Pattern Regular Blood Pressure 176/86 H Blood Pressure [Left Arm] 176/86 H Blood Pressure Mean 116 Blood Pressure Mean [Left Arm] 116 Pulse Oximetry 93 93 98 Oxygen Delivery Method Room Air Room Air Room Air Sepsis Recent Fever Within 48 Hours No Sepsis New/Unexplained Change in Mental Status N/A Sepsis Action Taken by Nursing No Action Required Laboratory Data Attestation: I reviewed the patient's lab results. 01/13/23 12:30 01/13/23 12:30 Lab Results 01/13/23 01/13/23 01/13/23 Range/Units 12:30 12:30 12:30 WBC 8.32 (4.8-10.8) K/ul RBC 4.58 (4.20-5.40) M/uL Hgb 13.7 (12.0-16.0) g/dl Hct 40.1 (37.0-47.0) % MCV 87.6 (80.0-100.0) fL MCH 29.9 (25.0-34.0) pg MCHC 34.2 (32.0-36.0) g/dL RDW Std Deviation 42.4 (36.4-46.3) fL RDW Coeff of Ta 13.2 (11.5-14.5) % Plt Count 198 (130-400) K/uL MPV 10.7 (9.4-12.4) fL Immature Gran % (Auto) 0.2 % Neut % (Auto) 64.4 % Lymph % (Auto) 22.4 % Rogers % (Auto) 10.1 % Eos % (Auto) 1.7 % Baso % (Auto) 1.2 % Neut # (Auto) 5.36 (1.40-6.50) K/uL Lymph # (Auto) 1.86 (1.20-3.40) K/uL Rogers # (Auto) 0.84 H (0.11-0.59) K/uL Eos # (Auto) 0.14 (0.00-0.50) K/uL Baso # (Auto) 0.10 (0.00-0.20) K/uL Immature Gran # (Auto) 0.02 (0.01-0.20) K/uL PT 11.0 (9.0-12.0) Seconds INR 1.0 (0.9-1.1) Sodium 138 (136-145) mmol/L Potassium 3.7 (3.5-5.1) mmol/L Chloride 105 (98-107) mmol/L Carbon Dioxide 28 (21-32) mmol/L Anion Gap 5 (3-11) BUN 16 (6-23) mg/dl Creatinine 0.68 (0.6-1.2) mg/dl Est Cr Clr Drug Dosing 78.0 ml/min Est GFR ( Amer) 89.9 ml/min Est GFR (Non-Af Amer) 77.6 ml/min BUN/Creatinine Ratio 23.5 H (10-20) Glucose 99 (70-99(Fasting)) mg/dl Calcium 10.0 (8.6-10.3) mg/dl Phosphorus 2.9 (2.5-4.9) mg/dl Magnesium 2.0 (1.7-2.4) mg/dl Total Bilirubin 0.6 (0.2-1.0) mg/dl AST 21 (13-39) U/L ALT 18 (7-52) U/L Alkaline Phosphatase 58 (34-104) U/L Total Creatine Kinase 146 (26-192) U/L Total Protein 6.9 (6.0-8.3) gm/dl Albumin 4.3 (3.4-5.0) gm/dl Globulin 2.6 (2.5-4.0) gm/dl Albumin/Globulin Ratio 1.7 (0.9-2) TSH (0.300-4.500) uIu/ml Urine Color Urine Appearance (Clear) Urine pH (4.5-7.5) Ur Specific [place] (1.000-1.030) Urine Protein (Negative) Urine Glucose (UA) (Negative) Urine Ketones (Negative) Urine Blood (Negative) Urine Nitrite (Negative) Urine Bilirubin (Negative) Urine Urobilinogen (Negative) Ur Leukocyte Esterase (Negative) Urine WBC (Auto) (0-5) /hpf Urine RBC (Auto) (0-4) /hpf U Hyaline Cast (Auto) (0-5) /lpf U Epithel Cells (Auto) (0-5) /lpf Urine Bacteria (Auto) (Negative) 01/13/23 01/13/23 Range/Units 12:30 13:30 WBC (4.8-10.8) K/ul RBC (4.20-5.40) M/uL Hgb (12.0-16.0) g/dl Hct (37.0-47.0) % MCV (80.0-100.0) fL MCH (25.0-34.0) pg MCHC (32.0-36.0) g/dL RDW Std Deviation (36.4-46.3) fL RDW Coeff of Ta (11.5-14.5) % Plt Count (130-400) K/uL MPV (9.4-12.4) fL Immature Gran % (Auto) % Neut % (Auto) % Lymph % (Auto) % Rogers % (Auto) % Eos % (Auto) % Baso % (Auto) % Neut # (Auto) (1.40-6.50) K/uL Lymph # (Auto) (1.20-3.40) K/uL Rogers # (Auto) (0.11-0.59) K/uL Eos # (Auto) (0.00-0.50) K/uL Baso # (Auto) (0.00-0.20) K/uL Immature Gran # (Auto) (0.01-0.20) K/uL PT (9.0-12.0) Seconds INR (0.9-1.1) Sodium (136-145) mmol/L Potassium (3.5-5.1) mmol/L Chloride (98-107) mmol/L Carbon Dioxide (21-32) mmol/L Anion Gap (3-11) BUN (6-23) mg/dl Creatinine (0.6-1.2) mg/dl Est Cr Clr Drug Dosing ml/min Est GFR ( Amer) ml/min Est GFR (Non-Af Amer) ml/min BUN/Creatinine Ratio (10-20) Glucose (70-99(Fasting)) mg/dl Calcium (8.6-10.3) mg/dl Phosphorus (2.5-4.9) mg/dl Magnesium (1.7-2.4) mg/dl Total Bilirubin (0.2-1.0) mg/dl AST (13-39) U/L ALT (7-52) U/L Alkaline Phosphatase (34-104) U/L Total Creatine Kinase (26-192) U/L Total Protein (6.0-8.3) gm/dl Albumin (3.4-5.0) gm/dl Globulin (2.5-4.0) gm/dl Albumin/Globulin Ratio (0.9-2) TSH 3.018 (0.300-4.500) uIu/ml Urine Color Yellow Urine Appearance Cloudy A (Clear) Urine pH 8.0 H (4.5-7.5) Ur Specific [place] 1.011 (1.000-1.030) Urine Protein Negative (Negative) Urine Glucose (UA) Negative (Negative) Urine Ketones Negative (Negative) Urine Blood Negative (Negative) Urine Nitrite Negative (Negative) Urine Bilirubin Negative (Negative) Urine Urobilinogen Negative (Negative) Ur Leukocyte Esterase Negative (Negative) Urine WBC (Auto) 1-5 (0-5) /hpf Urine RBC (Auto) 0-4 (0-4) /hpf U Hyaline Cast (Auto) 0 (0-5) /lpf U Epithel Cells (Auto) 5-10 H (0-5) /lpf Urine Bacteria (Auto) Negative (Negative) Administered Medications Sodium Chloride (Nss) 500 mls @ 80 mls/hr IV .Q6H15M [facility] Stop: 02/12/23 13:14 Last Admin: 01/13/23 13:33 Dose: 80 mls/hr Documented By: TBS Morphine Sulfate (Morphine Sulfate 4 Mg/Ml 1 Ml Carp\\Vial) 2 mg IV Q2H PRN PRN Reason: Severe Pain (Rating 7,8,9,10) Stop: 01/27/23 18:28 Last Admin: 01/13/23 19:44 Dose: 2 mg Documented By: AMS Discontinued Medications Acetaminophen (Ofirmev) 1,000 mg in 100 mls @ 400 mls/hr IV NOW STA Stop: 01/13/23 13:21 Last Infusion: 01/13/23 13:45 Dose: 0 mls/hr Documented By: Admin: 01/13/23 13:27 Dose: 400 mls/hr Documented By: TBS Morphine Sulfate (Morphine Sulfate 2 Mg/Ml Carp) 1 mg IV NOW STA Stop: 01/13/23 13:08 Last Admin: 01/13/23 13:27 Dose: 1 mg Documented By: TBS Morphine Sulfate (Morphine Sulfate 2 Mg/Ml Carp) 2 mg IV NOW STA Stop: 01/13/23 14:17 Last Admin: 01/13/23 14:42 Dose: 2 mg Documented By: TBS Ondansetron HCl (Ondansetron Inj 2 Mg/Ml 2 Ml Vial) 4 mg IV NOW STA Stop: 01/13/23 14:59 Last Admin: 01/13/23 15:09 Dose: 4 mg Documented By: SREE Imaging Data Radiologist's Impression: Ankle X-Ray 01/13/23 13:07 XR ankle LT min 3V routine CLINICAL HISTORY: pain fall TECHNIQUE: 3 views of the left ankle were obtained. Comparison: Comparison is made to left ankle radiograph 04/08/2010 FINDINGS: There is a fracture of the distal fibula above the level of the tibia-fibula syndesmosis. The joint spaces are well preserved. There is widening of the medial clear space most prominent on the AP projection. Soft tissue swelling is seen about the ankle. IMPRESSION: Ku C fibular fracture. There is likely a syndesmotic injury. ACT 112: Negative or not required by law. Electronically signed by: Keaton Martinez M.D. 01/13/2023 2:42 PM Hip/Pelvis X-Ray 01/13/23 13:07 XR hip LT 2V w pelvis CLINICAL HISTORY: pain fall TECHNIQUE: 2 views of the left hip and single frontal view of the pelvis were obtained. Comparison: Comparison is made to pelvis radiograph 07/19/2020 FINDINGS: There is no evidence of an acute fracture. Degenerative changes are seen in the hip joint. Posterior fixation hardware seen in the lower lumbar spine. No soft tissue abnormality is seen. IMPRESSION: Degenerative changes without evidence of acute abnormality. ACT 112: Negative or not required by law. Electronically signed by: Keaton Martinez M.D. 01/13/2023 2:43 PM Chest X-Ray 01/13/23 13:08 XR chest 1V portable CLINICAL HISTORY: fall, weakness TECHNIQUE: Single frontal radiograph of the chest was obtained. Comparison: Comparison is made to chest radiograph 11/28/2022 FINDINGS: No lines and tubes are seen. Calcified aortic knob is seen. The lungs are clear. No evidence of pleural effusion or pneumothorax. IMPRESSION: No acute chest disease. ACT 112: Negative or not required by law. Electronically signed by: Keaton Martinez M.D. 01/13/2023 2:39 PM Discharge Plan Visit Data Chief Complaint: Fall Stated Complaint: FALL, ANKLE PAIN, HIP PAIN ED Provider: Jad Carrera Discharge Problem: Fracture of distal end of fibula, Ambulatory dysfunction, Ankle fracture, left Forms Stand Alone Forms: [employer] Prescriptions Prescriptions: No Action (DME) CPAP Machine Misc See Rx Instructions .ROUTE .MEDSUPPLY Qty: 1 0RF Rx Instructions: PLEASE CHECK HER CPAP TO SEE IF FUNCTIONAL.CHANGE TO AUTO CPAP MIN 6 MAX 16. CPAP SUPPLIES. CPAP MASK OF CHOICE. DIANE 99. [employer]. (DME) compr.stocking,knee,long,x-lrg Misc See Rx Instructions .ROUTE .MEDSUPPLY Qty: 2 0RF Rx Instructions: As directed ascorbic acid (vitamin C) [Vitamin C] 1,000 mg Tablet 1 g PO QAM losartan 25 mg tablet 25 mg PO DAILY cyanocobalamin (vitamin B-12) [Vitamin B-12] 250 mcg Tablet 250 mcg PO DAILY aspirin 81 mg Tablet,Delayed Release (Dr/Ec) 81 mg PO DAILY meloxicam 7.5 mg tablet 7.5 mg PO QAM oxybutynin chloride 5 mg tablet extended release 24hr 5 mg PO QAM furosemide [Lasix] 20 mg Tablet 20 mg PO BID vitamin E 268 mg (400 unit) Capsule 268 mg PO DAILY levothyroxine 112 mcg tablet 112 mcg PO DAILYBB omega 6-efm-ems-fish oil [Fish Oil] 1,000 mg (120 mg-180 mg) Capsule 1 cap PO QAM clonazepam 1 mg tablet 1 mg PO HS escitalopram oxalate 10 mg tablet 10 mg PO DAILY Rx Instructions: ON [facility] MED LIST rosuvastatin 10 mg Tablet 10 mg PO DAILY Referrals Referrals: Leia Torres MD [Primary Care Provider] -
[2023-01-13] MEDS ORDERED: ACETAMINOPHEN 1,000 MG/100 ML VIAL IV STA (13:07)
[2023-01-13] MEDS ORDERED: MoRPHine SULFATE 2 MG/ML CARP IV STA ×2 (13:07→14:16)
[2023-01-13] MEDS: SODIUM CHLORIDE 0.9% 500 ML IV SCH ×2 (13:33→22:24)
[2023-01-13 13:40] LABS: Basophils % (auto) 1.2 %; Eosinophils # (auto) 0.14 K/uL (0.00-0.50); Eosinophils % (auto) 1.7 %; Hematocrit (blood only) 40.1 % (37.0-47.0); Hemoglobin 13.7 g/dl (12.0-16.0); Immature Granulocytes # (auto) 0.02 K/uL (0.01-0.20); Immature Granulocytes % (auto) 0.2 %; Lymphocytes # (auto) 1.86 K/uL (1.20-3.40); Lymphocytes % (auto) 22.4 %; Mean Corpuscular Hemoglobin 29.9 pg (25.0-34.0); Mean Corpuscular Hgb Conc 34.2 g/dL (32.0-36.0); Mean Corpuscular Volume 87.6 fL (80.0-100.0); Mean Platelet Volume 10.7 fL (9.4-12.4); Monocytes # (auto) 0.84 K/uL (0.11-0.59); Monocytes % (auto) 10.1 %; Neutrophils # (auto) 5.36 K/uL (1.40-6.50); Neutrophils % (auto) 64.4 %; Platelet Count 198 K/uL (130-400); RDW Coefficient of Variation 13.2 % (11.5-14.5); RDW Standard Deviation 42.4 fL (36.4-46.3); Red Blood Count 4.58 M/uL (4.20-5.40); White Blood Count 8.32 K/ul (4.8-10.8)
[2023-01-13 13:56] LABS: Albumin Globulin Ratio 1.7 (0.9-2); Albumin Level 4.3 gm/dl (3.4-5.0); BUN Creatinine Ratio 23.5 (10-20); Bilirubin,Total 0.6 mg/dl (0.2-1.0); Est GFR (African American) 89.9 ml/min; Est GFR (Non-African American) 77.6 ml/min; Globulin 2.6 gm/dl (2.5-4.0); Phosphorus 2.9 mg/dl (2.5-4.9); Potassium 3.7 mmol/L (3.5-5.1); Total Protein 6.9 gm/dl (6.0-8.3)
[2023-01-13 14:02] LABS: Appearance Urine Cloudy (Clear); Bacteria Urine Automated Negative (Negative); Bilirubin Urine Negative (Negative); Blood Urine Negative (Negative); Cast Urine Automated 0 /lpf (0-5); Color Urine Yellow; Glucose Urine UA Negative (Negative); Ketones Urine Negative (Negative); Leukocyte Esterase Urine Negative (Negative); Nitrite Urine Negative (Negative); Protein Urine Negative (Negative); RBC Urine Automated 0-4 /hpf (0-4); Specific Gravity Urine 1.011 (1.000-1.030); Urobilinogen Urine Negative (Negative)
--- NOTE | 2023-01-13 14:40 | XRay Report ---
XR chest 1V portable CLINICAL HISTORY: fall, weakness TECHNIQUE: Single frontal radiograph of the chest was obtained. Comparison: Comparison is made to chest radiograph 11/28/2022 FINDINGS: No lines and tubes are seen. Calcified aortic knob is seen. The lungs are clear. No evidence of pleur al effusion or pneumothorax. IMPRESSION: No acute chest disease. ACT 112: Negative or not required by law. Electronically signed by: Keaton Martinez M.D. 01/13/2023 2:39 PM
--- NOTE | 2023-01-13 14:43 | XRay Report ---
XR ankle LT min 3V routine CLINICAL HISTORY: pain fall TECHNIQUE: 3 views of the left ankle were obtained. Comparison: Comparison is made to left ankle radiograph 04/08/2010 FINDINGS: There is a fracture of the distal fibula above the level of the tibia-fibula syndesmosis. The joint s paces are well preserved. There is widening of the medial clear space most prominent on the AP projec tion. Soft tissue swelling is seen about the ankle. IMPRESSION: Ku C fibular fracture. There is likely a syndesmotic injury. ACT 112: Negative or not required by law. Electronically signed by: Keaton Martinez M.D. 01/13/2023 2:42 PM
--- NOTE | 2023-01-13 14:44 | XRay Report ---
XR hip LT 2V w pelvis CLINICAL HISTORY: pain fall TECHNIQUE: 2 views of the left hip and single frontal view of the pelvis were obtained. Comparison: Comparison is made to pelvis radiograph 07/19/2020 FINDINGS: There is no evidence of an acute fracture. Degenerative changes are seen in the hip joint. Posterior fixation hardware seen in the lower lumbar spine. No soft tissue abnormality is seen. IMPRESSION: Degenerative changes without evidence of acute abnormality. ACT 112: Negative or not required by law. Electronically signed by: Keaton Martinez M.D. 01/13/2023 2:43 PM
[2023-01-13] MEDS ORDERED: ONDANSETRON INJ 2 MG/ML 2 ML VIAL IV STA (14:58)
[2023-01-13] MEDS ORDERED: MoRPHine SULFATE 2 MG/ML CARP IV PRN (18:29)
[2023-01-13] MEDS ORDERED: MoRPHine SULFATE 4 MG/ML 1 ML CARP\\VIAL IV PRN (18:29)
--- NOTE | 2023-01-13 18:45 | History & Physical Report ---
Date of Service January 13, 2023 Assessment & Plan (1) Ambulatory dysfunction: (2) Closed fracture of left distal fibula: (3) Status post fall: (4) Obstructive sleep apnea: (5) HTN (hypertension): (6) Hyperlipemia: (7) Depression with anxiety: (8) Hypothyroidism: (9) Overactive bladder: (10) (HFpEF) heart failure with preserved ejection fraction: Plan 87-year-old female s/p fall at home going to her bathroom earlier today. At baseline, patient has ambulatory dysfunction. Additional past medical history includes HTN, HLD, GERD, HFpEF, severe ELLI and morbid obesity. Recent admit 11/28/2022 to 12/05/2022 for symptoms of heart failure including lower extremity edema. Ankle x-ray indicates Sierra C fibula fracture. CXR (-). No leukocytosis or signs of infection. BMP and CBC unremarkable. At baseline she ambulates using a walker. Recently saw sleep medicine and has been on CPAP however was off of it for the last year due to it being recalled. She has since restarted CPAP at home at night. No leukocytosis and otherwise labs unremarkable. Ankle x-ray indicates a displaced distal fibular fracture/Sierra C fracture. Orthopedics has evaluated the patient in the ED and recommends conservative management with a splint and outpatient follow-up. Admit for pain control and PT/OT, ortho consult. As her injury complicates her ambulatory dysfunction she will be admitted for further evaluation and management. Closed fracture of left distal fibula: Ambulatory dysfunction: Status post fall: Acute uncontrolled ankle x-ray: Sierra C fibular fracture. There is likely a syndesmotic injury. hip/pelvis x-ray negative Orthopedics consultation placed Ortho recommends conservative management with splint placement Pain control; will order scheduled Tylenol and Oxy IR as needed PT/OT ELLI: Chronic stable Has CPAP nightly; has not used over the past year due to machine recall Had a sleep study evaluation in November; noted severe ELLI and nocturnal hypoxemia CPAP ordered nightly per protocol Not hypoxic on exam HTN: HFpEF: Chronic stable Last ECHO 11/29/2022 EF 60 to 65% left ventricle wall motion normal; mild concentric LVH Takes losartan and Lasix; continue Hydralazine TID PRN with parameters Depression with anxiety: Chronic stable Takes Lexapro and clonazepam; continue Hypothyroidism: Chronic stable Takes levothyroxine; continue TSH today 3.018 HLD: chronic stable takes Rosuvastatin;continue OAB: Chronic stable Takes oxybutynin; continue Disposition: PCP: Dr. Torres CODE STATUS: Full code VTE prophylaxis: Lovenox SQ I spent a total of 87 minutes coordinating, documenting, and providing care for this patient excluding time spent in the performance of separately billed services. All of the aforementioned completed while collaborating with the assigned attending physician for a full treatment plan. Please see their addendum for further details. History of Present Illness Chief Complaint: ambulatory dysfunction/sierra c fracture Primary Care Provider: Leia Torres MD Ms. Muller is an 87-year-old female that presents to the ED today s/p fall at home while going to her bathroom earlier today. At baseline, patient has ambulatory dysfunction. Additional past medical history includes HTN, HLD, GERD, HFpEF, severe ELLI and morbid obesity. She was recently admitted to [facility] from 11/28/2022 to 12/05/2022 for symptoms of heart failure including lower extremity edema. Ankle x-ray indicates Sierra C fibula fracture. Chest x-ray negative. No leukocytosis or signs of infection. BMP and CBC unremarkable. At baseline she ambulates using a walker. She recently saw sleep medicine and has been on CPAP however was off of it for the last year due to it being recalled. She has since restarted CPAP at home at night. Patient denies headache, dizziness, syncopal episodes during the event, chest pain, palpitations, auditory visual changes, abdominal pain or tenderness, changes in appetite, urine or bowel changes, other recent falls or trauma. No leukocytosis and otherwise labs unremarkable. Ankle x-ray indicates a displaced distal fibular fracture/Sierra C fracture. Orthopedics has evaluated the patient in the ED and recommends conservative management with a splint and outpatient follow-up. We will provide pain control and PT OT while she is here. As her injury complicates her ambulatory dysfunction she will be admitted for further evaluation and management. Please see A/P for further details. Allergies Allergy/AdvReac Type Severity Reaction Status Date / Time atorvastatin Allergy Severe WHEEZING/RESP Verified 12/20/22 14:02 DIFFICULTY ciprofloxacin Allergy Severe SHORT OF Verified 12/20/22 14:02 BREATH/RASH amoxicillin Allergy Intermediate Hives Verified 12/20/22 14:02 Iodinated Contrast Media Allergy Intermediate HIVES Verified 12/20/22 14:02 iodine Allergy Intermediate Hives Verified 12/20/22 14:02 Sulfa (Sulfonamide Allergy Intermediate SHORT OF Verified 12/20/22 14:02 Antibiotics) BREATH/RASH escitalopram Allergy Unknown UNKNOWN Verified 12/20/22 14:02 PER [facility] MED LIST niacin Allergy Unknown UNKNOWN Verified 12/20/22 14:02 PER [facility] MED LIST lisinopril AdvReac Intermediate Gastrointestinal Verified 12/20/22 14:02 Upset Home Medications Medication Instructions Recorded Confirmed Type CPAP Machine #1 ea 06/30/19 01/13/23 Rx ascorbic acid (vitamin C) 1,000 mg 1 g PO QAM 02/24/20 01/13/23 History tablet (Vitamin C) compr.stocking,knee,long,x-lrg #2 ea 05/10/20 01/13/23 Rx aspirin 81 mg tablet,delayed 81 mg PO DAILY 11/28/22 01/13/23 History release clonazepam 1 mg tablet 1 mg PO HS 11/28/22 01/13/23 History cyanocobalamin (vitamin B-12) 250 250 mcg PO DAILY 11/28/22 01/13/23 History mcg tablet (Vitamin B-12) escitalopram oxalate 10 mg tablet 10 mg PO DAILY 11/28/22 01/13/23 History furosemide 20 mg tablet (Lasix) 20 mg PO BID 11/28/22 01/13/23 History levothyroxine 112 mcg tablet 112 mcg PO DAILYBB 11/28/22 01/13/23 History losartan 25 mg tablet 25 mg PO DAILY 11/28/22 01/13/23 History meloxicam 7.5 mg tablet 7.5 mg PO QAM 11/28/22 01/13/23 History omega 7-aug-mkc-fish oil 1,000 mg 1 cap PO QAM 11/28/22 01/13/23 History (120 mg-180 mg) capsule (Fish Oil) oxybutynin chloride 5 mg 5 mg PO QAM 11/28/22 01/13/23 History tablet,extended release 24 hr vitamin E 268 mg (400 unit) capsule 268 mg PO DAILY 11/28/22 01/13/23 History rosuvastatin 10 mg tablet 10 mg PO DAILY 01/13/23 01/13/23 History Past Med/Surg History Medical History (Updated 01/13/23 @ 19:28 by CHAVA Mcgovern) (HFpEF) heart failure with preserved ejection fraction Ambulatory dysfunction Anemia Aortic atherosclerosis 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 Chronic osteoarthritis Colitis Cyst of kidney, acquired Cyst of pancreas Depression with anxiety Diverticular disease Fatty liver GERD (gastroesophageal reflux disease) History of cholecystitis HTN (hypertension) Hyperlipemia Hypothyroidism Lower extremity edema Migraine Morbid obesity with BMI of 45.0-49.9, adult Obstructive sleep apnea cpap Overactive bladder Self-catheterizes urinary bladder in the am and at night d/t ureters being cut during hysterectomy--pt states she can still void as well Status post fall Surgical History H/O colonoscopy with polypectomy H/O: hysterectomy ONEIL BSO ~pt states she had the surgery done at 1974 @ [facility] [place], pt states that "they accidentally cut my kidney tubes and I have to catherize myself every day twice a day since then" History of appendectomy History of bilateral cataract extraction History of detached retina repair right History of dilatation and curettage History of esophagogastroduodenoscopy (EGD) History of knee replacement procedure of right knee (~2006) History of lumbar spinal fusion History of sinus surgery History of tooth extraction all teeth Family History Son Colorectal cancer Hypertension Mother Ovarian cancer Diabetes Grandmother (Paternal) Hypertension Grandmother (Maternal) Heart disease Stroke Son Family hx colonic polyps Son Family hx colonic polyps Other No family history of adverse response to anesthesia Denies family history of Prostate cancer Myocardial infarction Breast cancer Social History Smoking Status: Never smoker Second Hand Exposure: No; Do You Dip or Chew Tobacco: No; Hx Alcohol Use: No Hx Substance Use: No Preferred Language: Ukrainian Communication Ability: Effective Visual Impairment: No Limitations Hearing Ability: Normal Vp Account Director Required: No Beliefs That Will Affect Care: None marital status: Current Living Situation: Spouse current occupational status: retired How many Children do You have: 5 Feels Safe at Home: Yes Childhood Exposure to Second-Hand Smoke: Yes caffeine: Yes Dental Care, Regularly: No Physical Activity Frequency: 1-2 Times per Week Seatbelt Use: always Sunscreen Use: Yes Assistive Devices: Walker Review of Systems Review of Systems: Neuro: (+) Falls, trauma, slurred speech HEENT: (-) MARSHALL, dizziness, dysphagia, visual or auditory changes CV: (-) CP, palpitations, swelling Resp: (-) SOB GI: (-) appetite changes, N/V/D, bowel changes : (-) urinary changes Skin: (-) rashes Psych: (-) anxiety, depression Physical Exam Physical Exam: Neuro: AAOx4, PERRLA, no aphagia, memory changes, CNII-XII grossly intact HEENT: head normocephalic, moist mucus membranes CV: S1/S2, (-) M/G/R, (-) edema, cap refill < 3 seconds (+) pedal pulses bilaterally Resp: See Dr. Bosch's addendum for further Physical exam. On 2LNC. GI: Abdomen S/NT/ND, Ax4 bowel sounds, (-) CVA tenderness Musculoskeletal: 5/5 B/L UE strength, 5/5 B/L LE strength. Left ankle with foot drop and ecchymosis around ankle Skin: (-) rashes , (-) erythema. Psych: euthymic mood Results & Data Results & Data Vital Signs (Past 12 Hours) Vital Signs Temp Pulse Pulse Resp BP BP Pulse Ox 01/13/23 13:46 98 01/13/23 12:35 36.5 C 64 18 176/86 H 93 01/13/23 12:35 36.5 C 63 18 176/86 H 93 O2 Del Method 01/13/23 13:46 Room Air 01/13/23 12:35 Room Air 01/13/23 12:35 Room Air Laboratory Results Short CBC 01/13/23 Range/Units 12:30 WBC 8.32 (4.8-10.8) K/ul Hgb 13.7 (12.0-16.0) g/dl Hct 40.1 (37.0-47.0) % Plt Count 198 (130-400) K/uL BMP 01/13/23 12:30 Sodium 138 Potassium 3.7 Chloride 105 Carbon Dioxide 28 BUN 16 Creatinine 0.68 Glucose 99 Calcium 10.0 Cardiac Enzymes 01/13/23 Range/Units 12:30 Total Creatine Kinase 146 (26-192) U/L Liver Function 01/13/23 Range/Units 12:30 Total Bilirubin 0.6 (0.2-1.0) mg/dl AST 21 (13-39) U/L ALT 18 (7-52) U/L Alkaline Phosphatase 58 (34-104) U/L Albumin 4.3 (3.4-5.0) gm/dl Urine 01/13/23 Range/Units 13:30 Urine Color Yellow Urine Appearance Cloudy A (Clear) Urine pH 8.0 H (4.5-7.5) Ur Specific [place] 1.011 (1.000-1.030) Urine Protein Negative (Negative) Urine Glucose (UA) Negative (Negative) Diagnostic Findings Ankle X-Ray 01/13/23 13:07 XR ankle LT min 3V routine CLINICAL HISTORY: pain fall TECHNIQUE: 3 views of the left ankle were obtained. Comparison: Comparison is made to left ankle radiograph 04/08/2010 FINDINGS: There is a fracture of the distal fibula above the level of the tibia-fibula syndesmosis. The joint spaces are well preserved. There is widening of the media l clear space most prominent on the AP projection. Soft tissue swelling is seen about the ankle. IMPRESSION: Sierra C fibular fracture. There is likely a syndesmotic injury. ACT 112: Negative or not required by law. Electronically signed by: Keaton Martinez M.D. 01/13/2023 2:42 PM Hip/Pelvis X-Ray 01/13/23 13:07 XR hip LT 2V w pelvis CLINICAL HISTORY: pain fall TECHNIQUE: 2 views of the left hip and single frontal view of the pelvis were obtained. Comparison: Comparison is made to pelvis radiograph 07/19/2020 FINDINGS: There is no evidence of an acute fracture. Degenerative changes are seen in the hip joint. Posterior fixation hardware seen in the lower lumbar spine. No soft tissue abnormality is seen. IMPRESSION: Degenerative changes without evidence of acute abnormality. ACT 112: Negative or not required by law. Electronically signed by: Keaton Martinez M.D. 01/13/2023 2:43 PM Chest X-Ray 01/13/23 13:08 XR chest 1V portable CLINICAL HISTORY: fall, weakness TECHNIQUE: Single frontal radiograph of the chest was obtained. Comparison: Comparison is made to chest radiograph 11/28/2022 FINDINGS: No lines and tubes are seen. Calcified aortic knob is seen. The lungs are clear. No evidence of pleural effusion or pneumothorax. IMPRESSION: No acute chest disease. ACT 112: Negative or not required by law. Electronically signed by: Keaton Martinez M.D. 01/13/2023 2:39 PM Code Status & VTE Plan Code Status Full code in the event of cardiac or respiratory arrest VTE Prophylaxis Plan VTE Prophylaxis will be ordered: Yes Supervising Physician Co-Signing Physician Notes 87-year-old lady with history of ambulatory dysfunction, HTN, HLD, GERD, ELLI, obesity presented to the ED 01/13 after falling and injuring left ankle. Per patient, she was going to the bathroom when her left lower extremity gave out and she fell. Admitting labs/CXR/EKG fairly WNL. Hip x-ray with no fracture. Left ankle x-ray with Sierra C fibular fracture a/w likely syndesmotic injury. Pain management, as needed blood pressure management, continue with home medications. Orthopedic consult. PT/OT after orthopedics eval. Will likely need placement. On exam: GENERAL: Alert and oriented x3. NAD, on RA. HEENT: No pallor, no icterus. Pupils equal, round and reactive to light. Oral mucosa moist. NECK: No JVD, no neck masses. HEART: S1 and S2 heard. Regular rate and rhythm. No murmur, no gallop. RESPIRATORY SYSTEM: Normal AP diameter. No accessory muscle use. No wheezing, no crackles. ABDOMEN: Soft, bowel sounds present, nontender, no distention. CENTRAL NERVOUS SYSTEM: No facial droop. Speech is clear. Obeys simple commands. Moves extremities. EXTREMITIES: trace ble edema, left ankle with bruise/swelling. Dangling left foot freely with no pain, distal pulses intact. PureWick catheter in place. I have seen and examined the patient and have discussed the case with the provider above. I agree with the assessment and plan as stated. (5) HTN (hypertension) Hypertension type: essential hypertension Qualified Code(s): I10 - Essential (primary) hypertension
[2023-01-13] MEDS ORDERED: oxyCODONE HCL IR 5 MG TAB (IMMEDIATE RELEASE) PO PRN (19:04)
[2023-01-13] MEDS ORDERED: hydrALAZINE HCL 25 MG TAB PO PRN (19:04)
--- NOTE | 2023-01-13 19:06 | Orthopedic Consultation ---
Date of Service January 13, 2023 Assessment & Plan (1) Closed fracture of left distal fibula: I talked her about diagnosis and treatment options at bedside. I recommended conservative treatment for this. She will be treated with a splint for now and then a walking boot in the near future. She can be touch toe weightbearing for now on her left ankle. She can follow-up with orthopedics in about a week for repeat x-rays and to fit her in a more comfortable cam walker boot. Office phone number is [phone]. History of Present Illness Reason for Consultation: Left distal fibular fracture. Requesting Physician: . Lauren is a pleasant 87-year-old female who is normally a community ambulator with a walker. She was try to get into her bathroom earlier today when she fell and injured her left ankle. She came to the emergency room. Radiographs demonstrated a minimally displaced distal fibular fracture. She was admitted to the medical service for ambulatory dysfunction. Orthopedics was consulted to evaluate and treat.. Allergies Allergy/AdvReac Type Severity Reaction Status Date / Time atorvastatin Allergy Severe WHEEZING/RESP Verified 12/20/22 14:02 DIFFICULTY ciprofloxacin Allergy Severe SHORT OF Verified 12/20/22 14:02 BREATH/RASH amoxicillin Allergy Intermediate Hives Verified 12/20/22 14:02 Iodinated Contrast Media Allergy Intermediate HIVES Verified 12/20/22 14:02 iodine Allergy Intermediate Hives Verified 12/20/22 14:02 Sulfa (Sulfonamide Allergy Intermediate SHORT OF Verified 12/20/22 14:02 Antibiotics) BREATH/RASH escitalopram Allergy Unknown UNKNOWN Verified 12/20/22 14:02 PER [facility] MED LIST niacin Allergy Unknown UNKNOWN Verified 12/20/22 14:02 PER [facility] MED LIST lisinopril AdvReac Intermediate Gastrointestinal Verified 12/20/22 14:02 Upset Home Medications Medication Instructions Recorded Confirmed Type CPAP Machine #1 ea 06/30/19 05/27/20 Rx ascorbic acid (vitamin C) 1,000 mg 1 g PO QAM 02/24/20 12/20/22 History tablet (Vitamin C) compr.stocking,knee,long,x-lrg #2 ea 05/10/20 05/27/20 Rx aspirin 81 mg tablet,delayed 81 mg PO DAILY 11/28/22 12/20/22 History release clonazepam 1 mg tablet 1 mg PO HS 11/28/22 12/20/22 History cyanocobalamin (vitamin B-12) 250 250 mcg PO DAILY 11/28/22 12/20/22 History mcg tablet (Vitamin B-12) escitalopram oxalate 10 mg tablet 10 mg PO DAILY 11/28/22 12/20/22 History furosemide 20 mg tablet (Lasix) 20 mg PO BID 11/28/22 12/20/22 History levothyroxine 112 mcg tablet 112 mcg PO DAILYBB 11/28/22 12/20/22 History losartan 25 mg tablet 25 mg PO DAILY 11/28/22 12/20/22 History meloxicam 7.5 mg tablet 7.5 mg PO QAM 11/28/22 12/20/22 History omega 4-zqo-zss-fish oil 1,000 mg 1 cap PO QAM 11/28/22 12/20/22 History (120 mg-180 mg) capsule (Fish Oil) oxybutynin chloride 5 mg 5 mg PO QAM 11/28/22 12/20/22 History tablet,extended release 24 hr vitamin E 268 mg (400 unit) capsule 268 mg PO DAILY 11/28/22 12/20/22 History 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 Chronic osteoarthritis Colitis Cyst of kidney, acquired Cyst of pancreas Depression with anxiety Diverticular disease Fatty liver GERD (gastroesophageal reflux disease) History of cholecystitis HTN (hypertension) Hyperlipemia Hypothyroidism Lower extremity edema Migraine Morbid obesity with BMI of 45.0-49.9, adult Obstructive sleep apnea cpap Self-catheterizes urinary bladder in the am and at night d/t ureters being cut during hysterectomy--pt states she can still void as well Surgical History H/O colonoscopy with polypectomy H/O: hysterectomy ONEIL BSO ~pt states she had the [place] at 1974 [place] [facility] [place] pt states that "they accidentally cut my kidney tubes and I have to catherize myself every day twice a day since then" History of appendectomy History of bilateral cataract extraction History of detached retina repair right History of dilatation and curettage History of esophagogastroduodenoscopy (EGD) History of knee replacement procedure of right knee (~2006) History of lumbar spinal fusion History of sinus surgery History of tooth extraction all teeth Family History Son Colorectal cancer Hypertension Mother Ovarian cancer Diabetes Grandmother (Paternal) Hypertension Grandmother (Maternal) Heart disease Stroke Son Family hx colonic polyps Son Family hx colonic polyps Other No family history of adverse response to anesthesia Denies family history of Prostate cancer Myocardial infarction Breast cancer Social History Smoking Status: Never smoker Second Hand Exposure: No; Do You Dip or Chew Tobacco: No; Hx Alcohol Use: No Hx Substance Use: No Preferred Language: [place]ese Communication Ability: Effective Visual Impairment: No Limitations Hearing Ability: Normal Counterintelligence Agent Required: No Beliefs That Will Affect Care: None marital status: Current Living Situation: Spouse current occupational status: retired How many Children do You have: 5 Feels Safe at Home: Yes Childhood Exposure to Second-Hand Smoke: Yes caffeine: Yes Dental Care, Regularly: No Physical Activity Frequency: 1-2 Times per Week Seatbelt Use: always Sunscreen Use: Yes Assistive Devices: Walker Review of Systems All systems reviewed & are unremarkable except as noted in HPI & below. Physical Exam On physical examination left ankle, has little bit of ecchymosis both medially and laterally. She has tenderness palpation over the distal fibula. There is no gross deformity.. Constitutional WD/WN, vitals as above Eyes PERRL, conjunctivae normal, anicteric sclerae ENMT external ear and nose normal, oropharynx normal Neck trachea midline, no thyromegaly Respiratory normal respiratory effort, lungs clear to auscultation Cardiovascular RRR, no murmur, no edema Gastrointestinal (Abdomen) normal bowel sounds, soft, nontender, no hepatosplenomegaly Skin no rashes, warm and dry Psychiatric A+Ox3, euthymic affect Results & Data Results & Data Laboratory Results . Diagnostic Findings X-rays of the left ankle do show a minimally displaced left distal fibula fracture. There is minimal widening of the medial clear space.. PG Care Time/CCT Total # of Minutes Spent Total Time Spent with Patient: Total time spent is greater than 50% in coordination of care (as documented) at patient's floor/unit and/or counseling patient: Coding Level of Care Code 47148 IN/OBS CONSULT LVL 4,60M Diagnoses Closed fracture of left distal fibula S82.832A
[2023-01-13] MEDS ORDERED: ACETAMINOPHEN 1,000 MG/100 ML VIAL IV PRN (21:00)
[2023-01-13] MEDS: clonazePAM 1 MG TAB PO SCH (22:19)
[2023-01-13] MEDS: FUROSEMIDE 20 MG TAB PO SCH (22:19)
--- NOTE | 2023-01-13 22:29 | XRay Report ---
LEFT ANKLE 3 VIEWS CLINICAL HISTORY: Postreduction examination. FINDINGS: 3 portable views of the left ankle are compared to study performed earlier the same day 01/13. The examination is performed through a cast, obscuring fine bony details. The skeletal structu res are osteopenic. Again seen is a minimally displaced spiral fracture through the distal shaft of t he fibula. Alignment is improved status post closed reduction. No additional fracture is seen. The an kle mortise is intact. There is a joint effusion. Soft tissue swelling is present around the ankle. IMPRESSION: Improved postreduction alignment of a distal fibular fracture. Electronically signed by: Meet Zhang M.D. 01/13/2023 10:26 PM
[2023-01-14] MEDS: SODIUM CHLORIDE 0.9% 500 ML IV SCH ×3 (05:07→15:34)
[2023-01-14] MEDS: LEVOTHYROXINE SODIUM 112 MCG TABLET PO SCH (06:32)
[2023-01-14] MEDS ORDERED: ONDANSETRON INJ 2 MG/ML 2 ML VIAL IV PRN (06:34)
[2023-01-14 07:05] LABS: Appearance Urine Clear (Clear); Bilirubin Urine Negative (Negative); Blood Urine Negative (Negative); Color Urine Yellow; Glucose Urine UA Negative (Negative); Ketones Urine Negative (Negative); Leukocyte Esterase Urine Negative (Negative); Nitrite Urine Negative (Negative); Protein Urine Negative (Negative); Urobilinogen Urine Negative (Negative); pH Urine 5.5 (4.5-7.5)
[2023-01-14 07:49] LABS: Hematocrit (blood only) 37.9 % (37.0-47.0); Hemoglobin 12.7 g/dl (12.0-16.0); Mean Corpuscular Hemoglobin 30.2 pg (25.0-34.0); Mean Corpuscular Hgb Conc 33.5 g/dL (32.0-36.0); Mean Platelet Volume 10.7 fL (9.4-12.4); Platelet Count 153 K/uL (130-400); RDW Coefficient of Variation 13.4 % (11.5-14.5); RDW Standard Deviation 44.2 fL (36.4-46.3); Red Blood Count 4.21 M/uL (4.20-5.40); White Blood Count 8.39 K/ul (4.8-10.8)
[2023-01-14] MEDS: LOSARTAN POTASSIUM 25 MG TAB PO SCH (08:42)
[2023-01-14] MEDS: FUROSEMIDE 20 MG TAB PO SCH ×2 (08:42→20:29)
[2023-01-14] MEDS: MELOXICAM 7.5 MG TAB PO SCH (08:43)
[2023-01-14] MEDS: OXYBUTYNIN CHLORIDE XL 5 MG TABCR PO SCH (08:43)
[2023-01-14] MEDS: ASPIRIN 81 MG ECTAB PO SCH (08:43)
[2023-01-14] MEDS: ESCITALOPRAM OXALATE 10 MG TAB PO SCH (08:43)
[2023-01-14 09:19] LABS: Albumin Globulin Ratio 1.8 (0.9-2); BUN Creatinine Ratio 27.8 (10-20); Bilirubin,Total 0.7 mg/dl (0.2-1.0); Calcium 8.9 mg/dl (8.6-10.3); Creatinine Clr Calc Pharmacy 97.7 ml/min; Est GFR (Non-African American) 83.7 ml/min; Globulin 2.2 gm/dl (2.5-4.0); Magnesium 1.9 mg/dl (1.7-2.4); Total Protein 6.2 gm/dl (6.0-8.3)
--- NOTE | 2023-01-14 17:00 | Hospitalist Progress Note ---
Date of Service January 14, 2023 Assessment & Plan (1) Ambulatory dysfunction: (2) Closed fracture of left distal fibula: (3) Status post fall: (4) Obstructive sleep apnea: (5) HTN (hypertension): (6) Hyperlipemia: (7) Depression with anxiety: (8) Hypothyroidism: (9) Overactive bladder: (10) (HFpEF) heart failure with preserved ejection fraction: Plan Ms Muller is an 87-year-old female with chronic heart failure with preserved efection fractions (EF 65%), hypertension, ELLI on CPAP, hypothyroidism, OAB, and ambulatory dysfunction 2/2 severe left knee osteoarthritis who is s/p fall 01/13. Patient was recently admitted 11/28/2022 to 12/05/2022 for symptoms of heart failure including lower extremity edema. She has been working with home PT services. She lives with her 92 year old . In the ED, Ankle x-ray indicates Ku C fibula fracture. Her other chronic comorbidities are stable. Ortho plans conservative management for left ankle fracture with splinting and pain management. PT/OT evaluation pending. #Closed fracture of left distal fibula: #Ambulatory dysfunction: #Mechanical Fall #Left knee osteoarthritis ankle x-ray: Ku C fibular fracture. There is likely a syndesmotic injury. hip/pelvis x-ray negative Orthopedics consult, conservatibe management Continue scheduled Tylenol and Oxy IR as needed PT/OT #ELLI: Chronic stable CPAP ordered nightly per protocol #Chronic HFpEF #HTN Last ECHO 11/29/2022 EF 60 to 65% left ventricle wall motion normal; mild concentric LVH Takes losartan and Lasix; continue Hydralazine TID PRN with parameters #Depression with anxiety: Takes Lexapro and clonazepam; continue #Hypothyroidism: Chronic stable Takes levothyroxine; continue TSH today 3.018 #HLD: chronic stable takes Rosuvastatin;continue #OAB: Chronic stable Takes oxybutynin; continue Disposition: PCP: Dr. Torres CODE STATUS: Full code VTE prophylaxis: Lovenox SQ Admission and Anticipated Discharge Date Admission Date: January 13, 2023 Subjective Patient evalauted at bedside Patient comfortably sleeping. Patient is easy to arouse and will state that she knows where she is and she is just tired, subsequently falling asleep was at bedside and states he didn't sleep for over 24 hours when this incident occured. He states the first issue was her attempting to get out of her chair and her right knee buckled, causing her to twist on to her ankle. He states that after she recovered from the ankle roll, she tried to go to the rest room, but her knee buckled and she rolled her ankle once more, causing significant pain and prompting her presentation to the ED Per the , the patient has been in her usual state of health, but her left knee is always a source of pain and instability. She has been denied any replacement options due to multiple reasons, and therefore manages to get by as she can. Review of Systems Review of Systems: All systems reviewed & are unremarkable except as noted in Subjective Physical Exam Constitutional: No acute distress, comfortably sleeping, easy to rouse and will answer appropriately Eyes: PERRL, conjunctivae normal, anicteric sclerae ENMT: external ear and nose normal, oropharynx normal Neck: thick neck, cannot appreciate 2/2 habitus Respiratory: normal respiratory effort, lungs clear to auscultation Cardiovascular: RRR, no murmur, no edema Gastrointestinal (Abdomen): normal bowel sounds, soft, nontender, no hepatosplenomegaly Musculoskeletal: left lower extremity with cast in place Neurologic: No focal deficits appreciated Results & Data Results & Data Vital Signs (Past 12 Hours) Vital Signs Temp Pulse Pulse Resp BP BP Pulse Ox 01/14/23 14:29 36.5 C 58 L 16 117/68 96 01/14/23 07:20 01/14/23 07:21 36.5 C 66 17 151/86 H 93 01/14/23 06:34 36.5 C 68 16 161/82 H 94 O2 Del Method O2 Flow Rate 01/14/23 14:29 Nasal Cannula 2 01/14/23 07:20 Nasal Cannula 2 01/14/23 07:21 Nasal Cannula 2 01/14/23 06:34 Nasal Cannula 1.5 Laboratory Results Short CBC 01/14/23 Range/Units 07:07 WBC 8.39 (4.8-10.8) K/ul Hgb 12.7 (12.0-16.0) g/dl Hct 37.9 (37.0-47.0) % Plt Count 153 (130-400) K/uL BMP 01/14/23 07:07 Sodium 137 Potassium 4.0 Chloride 105 Carbon Dioxide 27 BUN 15 Creatinine 0.54 L Glucose 109 H Calcium 8.9 Liver Function 01/14/23 Range/Units 07:07 Total Bilirubin 0.7 (0.2-1.0) mg/dl AST 17 (13-39) U/L ALT 15 (7-52) U/L Alkaline Phosphatase 52 (34-104) U/L Albumin 4.0 (3.4-5.0) gm/dl Urine 01/14/23 Range/Units 05:15 Urine Color Yellow Urine Appearance Clear (Clear) Urine pH 5.5 (4.5-7.5) Ur Specific [place] 1.020 (1.000-1.030) Urine Protein Negative (Negative) Urine Glucose (UA) Negative (Negative) Diagnostic Findings Ankle X-Ray 01/13/23 13:07 XR ankle LT min 3V routine CLINICAL HISTORY: pain fall TECHNIQUE: 3 views of the left ankle were obtained. Comparison: Comparison is made to left ankle radiograph 04/08/2010 FINDINGS: There is a fracture of the distal fibula above the level of the tibia-fibula syndesmosis. The joint spaces are well preserved. There is widening of the medial clear space most prominent on the AP projection. Soft tissue swelling is seen about the ankle. IMPRESSION: Ku C fibular fracture. There is likely a syndesmotic injury. ACT 112: Negative or not required by law. Electronically signed by: Keaton Martinez M.D. 01/13/2023 2:42 PM Hip/Pelvis X-Ray 01/13/23 13:07 XR hip LT 2V w pelvis CLINICAL HISTORY: pain fall TECHNIQUE: 2 views of the left hip and single frontal view of the pelvis were obtained. Comparison: Comparison is made to pelvis radiograph 07/19/2020 FINDINGS: There is no evidence of an acute fracture. Degenerative changes are seen in the hip joint. Posterior fixation hardware seen in the lower lumbar spine. No soft tissue abnormality is seen. IMPRESSION: Degenerative changes without evidence of acute abnormality. ACT 112: Negative or not required by law. Electronically signed by: Keaton Martinez M.D. 01/13/2023 2:43 PM Chest X-Ray 01/13/23 13:08 XR chest 1V portable CLINICAL HISTORY: fall, weakness TECHNIQUE: Single frontal radiograph of the chest was obtained. Comparison: Comparison is made to chest radiograph 11/28/2022 FINDINGS: No lines and tubes are seen. Calcified aortic knob is seen. The lungs are clear. No evidence of pleural effusion or pneumothorax. IMPRESSION: No acute chest disease. ACT 112: Negative or not required by law. Electronically signed by: Keaton Martinez M.D. 01/13/2023 2:39 PM Ankle X-Ray 01/13/23 19:53 LEFT ANKLE 3 VIEWS CLINICAL HISTORY: Postreduction examination. FINDINGS: 3 portable views of the left ankle are compared to study performed earlier the same day 01/13/2023. The examination is performed through a cast, obscuring fine bony details. The skeletal structures are osteopenic. Again seen is a minimally displaced spiral fracture through the distal shaft of the fibula. Alignment is improved status post closed reduction. No additional fracture is seen. The ankle mortise is intact. There is a joint effusion. Soft tissue swelling is present around the ankle. IMPRESSION: Improved postreduction alignment of a distal fibular fracture. Electronically signed by: Meet Zhang M.D. 01/13/2023 10:26 PM Medications Administered Home Medications Medication Instructions Recorded Confirmed Last Taken CPAP Machine #1 ea 06/30/19 01/13/23 Unknown ascorbic acid (vitamin C) 1,000 mg 1 g PO QAM 02/24/20 01/13/23 11/27/22 tablet (Vitamin C) compr.stocking,knee,long,x-lrg #2 ea 05/10/20 01/13/23 Unknown aspirin 81 mg tablet,delayed 81 mg PO DAILY 11/28/22 01/13/23 11/27/22 release clonazepam 1 mg tablet 1 mg PO HS 11/28/22 01/13/23 11/27/22 cyanocobalamin (vitamin B-12) 250 250 mcg PO DAILY 11/28/22 01/13/23 11/27/22 mcg tablet (Vitamin B-12) escitalopram oxalate 10 mg tablet 10 mg PO DAILY 11/28/22 01/13/23 11/27/22 furosemide 20 mg tablet (Lasix) 20 mg PO BID 11/28/22 01/13/23 11/27/22 levothyroxine 112 mcg tablet 112 mcg PO DAILYBB 11/28/22 01/13/23 11/27/22 losartan 25 mg tablet 25 mg PO DAILY 07/01/13/23 11/27/22 meloxicam 7.5 mg tablet 7.5 mg PO QAM 11/28/22 01/13/23 11/27/22 omega 3-fwc-bfa-fish oil 1,000 mg 1 cap PO QAM 11/28/22 01/13/23 11/27/22 (120 mg-180 mg) capsule (Fish Oil) oxybutynin chloride 5 mg 5 mg PO QAM 11/28/22 01/13/23 11/27/22 tablet,extended release 24 hr vitamin E 268 mg (400 unit) capsule 268 mg PO DAILY 11/28/22 01/13/23 11/27/22 rosuvastatin 10 mg tablet 10 mg PO DAILY 01/13/23 01/13/23 Unknown Active Medications Generic Name Dose Route Start Last Admin Trade Name Freq PRN Reason Stop Dose Admin Aspirin 81 mg 01/14/23 09:00 01/14/23 08:43 Aspirin 81 Mg Ectab PO 02/13/23 08:59 81 mg DAILY CASTLILO Administration Clonazepam 1 mg 01/13/23 21:00 01/13/23 22:19 Clonazepam 1 Mg Tab PO 02/12/23 20:59 1 mg HS CASTILLO Administration Escitalopram Oxalate 10 mg 01/14/23 09:00 01/14/23 08:43 Escitalopram Oxalate 10 Mg Tab PO 02/13/23 08:59 10 mg DAILY CASTILLO Administration Furosemide 20 mg 01/13/23 21:00 01/14/23 08:42 Furosemide 20 Mg Tab PO 02/12/23 20:59 20 mg BID CASTILLO Administration Acetaminophen 1,000 mg in 100 mls @ 400 mls/hr 01/13/23 21:00 01/14/23 05:53 Ofirmev IV 01/16/23 20:59 Infused Q8H PRN Infusion Pain Levothyroxine Sodium 112 mcg 01/14/23 06:30 01/14/23 06:32 Levothyroxine Sodium 112 Mcg Tablet PO 02/13/23 06:29 Not Given DAILYBB CASTILLO Losartan Potassium 25 mg 01/14/23 09:00 01/14/23 08:42 Losartan Potassium 25 Mg Tab PO 02/13/23 08:59 25 mg DAILY CASTILLO Administration Meloxicam 7.5 mg 01/14/23 09:00 01/14/23 08:43 Meloxicam 7.5 Mg Tab PO 02/13/23 08:59 7.5 mg QAM CASTILLO Administration Morphine Sulfate 2 mg 01/13/23 18:29 01/13/23 19:44 Morphine Sulfate 4 Mg/Ml 1 Ml Carp\Vial IV 01/27/23 18:28 2 mg Q2H PRN Administration Severe Pain (Rating 7,8,9,10) Oxybutynin Chloride 5 mg 01/14/23 09:00 01/14/23 08:43 Oxybutynin Chloride Xl 5 Mg Tabcr PO 02/13/23 08:59 5 mg QAM CASTILLO Administration Oxycodone HCl 5 mg 01/13/23 19:04 01/14/23 05:56 Oxycodone Hcl Ir 5 Mg Tab (Immediate Release) PO 01/27/23 19:03 5 mg Q6H PRN Administration Pain (5) HTN (hypertension) Hypertension type: essential hypertension Qualified Code(s): I10 - Essential (primary) hypertension
[2023-01-14] MEDS: clonazePAM 1 MG TAB PO SCH (20:28)
[2023-01-14] MEDS: oxyCODONE HCL IR 5 MG TAB (IMMEDIATE RELEASE) PO PRN (20:28)
[2023-01-15] MEDS: oxyCODONE HCL IR 5 MG TAB (IMMEDIATE RELEASE) PO PRN ×2 (05:37→20:20)
[2023-01-15] MEDS: LEVOTHYROXINE SODIUM 112 MCG TABLET PO SCH (05:38)
[2023-01-15 06:36] LABS: BUN Creatinine Ratio 24.4 (10-20); Calcium 8.9 mg/dl (8.6-10.3); Creatinine Clr Calc Pharmacy 67.6 ml/min; Est GFR (African American) 78.1 ml/min; Est GFR (Non-African American) 67.4 ml/min; Magnesium 1.9 mg/dl (1.7-2.4); Phosphorus 1.9 mg/dl (2.5-4.9); Potassium 3.8 mmol/L (3.5-5.1)
[2023-01-15 06:38] LABS: Hematocrit (blood only) 35.2 % (37.0-47.0); Hemoglobin 11.8 g/dl (12.0-16.0); Mean Corpuscular Hemoglobin 30.3 pg (25.0-34.0); Mean Corpuscular Hgb Conc 33.5 g/dL (32.0-36.0); Mean Corpuscular Volume 90.5 fL (80.0-100.0); Mean Platelet Volume 10.9 fL (9.4-12.4); Platelet Count 156 K/uL (130-400); RDW Coefficient of Variation 13.7 % (11.5-14.5); RDW Standard Deviation 45.1 fL (36.4-46.3); Red Blood Count 3.89 M/uL (4.20-5.40); White Blood Count 8.45 K/ul (4.8-10.8)
[2023-01-15] MEDS: OXYBUTYNIN CHLORIDE XL 5 MG TABCR PO SCH (08:03)
[2023-01-15] MEDS: MELOXICAM 7.5 MG TAB PO SCH (08:03)
[2023-01-15] MEDS: ESCITALOPRAM OXALATE 10 MG TAB PO SCH (08:04)
[2023-01-15] MEDS: ASPIRIN 81 MG ECTAB PO SCH (08:04)
[2023-01-15] MEDS: FUROSEMIDE 20 MG TAB PO SCH ×2 (08:04→20:21)
[2023-01-15] MEDS ORDERED: POT PHOSPHATE MONOBASIC W/ SOD TAB PO STA (08:28)
[2023-01-15] MEDS: ACETAMINOPHEN 325 MG TAB PO SCH ×4 (08:47→23:29)
[2023-01-15] MEDS: LOSARTAN POTASSIUM 25 MG TAB PO SCH (08:48)
--- NOTE | 2023-01-15 09:23 | Orthopedic Progress Note ---
Date of Service January 15, 2023 Assessment & Plan (1) Fracture of distal end of fibula: Lauren has a distal fibular fracture that can be treated nonoperatively. She is currently in a trauma splint for pain control. She can be touch toe weightbearing in the trauma splint. She can follow-up with orthopedics next week for removal of the trauma splint and placement in a cam walker boot. She should follow-up with one of our nonoperative providers such as Dr. Manley or Dr. Tadeo in our office. Our office phone number is [phone]. If you have any further questions please feel free to Anderson text me or contact me personally on my cell phone at [phone] Subjective Lauren was seen and examined at bedside this morning. Overall she is doing okay. She has a trauma splint on her left leg. She has not been ambulating yet. She has some concerns about returning home. She had no acute events overnight and no other complaints.. Review of Systems All systems reviewed & are unremarkable except as noted in HPI & below. Physical Exam On physical examination of the left ankle, there is a trauma splint in place. She is active motion of her toes.. Results & Data Results & Data Laboratory Results . Diagnostic Findings . PG Care Time/CCT Total # of Minutes Spent Total Time Spent with Patient: Total time spent is greater than 50% in coordination of care (as documented) at patient's floor/unit and/or counseling patient: Coding Level of Care Code 44662 Post Operative Follow-Up Diagnoses Fracture of distal end of fibula S82.839A Encounter type: initial encounter Fracture type: closed Laterality: left (1) Fracture of distal end of fibula Encounter type: initial encounter Fracture type: closed Laterality: left
--- NOTE | 2023-01-15 18:11 | Hospitalist Progress Note ---
Date of Service January 15, 2023 Assessment & Plan (1) Ambulatory dysfunction: (2) Closed fracture of left distal fibula: (3) Status post fall: (4) Obstructive sleep apnea: (5) HTN (hypertension): (6) Hyperlipemia: (7) Depression with anxiety: (8) Hypothyroidism: (9) Overactive bladder: (10) (HFpEF) heart failure with preserved ejection fraction: Plan Ms Muller is an 87-year-old female with chronic heart failure with preserved efection fractions (EF 65%), hypertension, ELLI on CPAP, hypothyroidism, OAB, and ambulatory dysfunction 2/2 severe left knee osteoarthritis who is s/p fall 01/13. Patient was recently admitted 11/28/2022 to 12/05/2022 for symptoms of heart failure including lower extremity edema. She has been working with home PT services. She lives with her 92 year old . In the ED, Ankle x-ray indicates Ku C fibula fracture. Her other chronic comorbidities are stable. Ortho plans conservative management for left ankle fracture with splinting and pain management. PT/OT evaluation pending. #Closed fracture of left distal fibula: #Ambulatory dysfunction: #Mechanical Fall #Left knee osteoarthritis ankle x-ray: Ku C fibular fracture. There is likely a syndesmotic injury. hip/pelvis x-ray negative Orthopedics consult, conservative management Continue scheduled Tylenol and Oxy IR as needed PT/OT on consult - follow-up with orthopedics next week for removal of the trauma splint and placement in a cam walker boot, with nonoperative providers such as Dr. Manley or Dr. Tadeo( [phone]) #ELLI: Chronic stable CPAP ordered nightly per protocol #Chronic HFpEF #HTN Last ECHO 11/29/2022 EF 60 to 65% left ventricle wall motion normal; mild concentric LVH Takes losartan and Lasix; continue Hydralazine TID PRN with parameters #Depression with anxiety: Takes Lexapro and clonazepam; continue #Hypothyroidism: Chronic stable Takes levothyroxine; continue TSH today 3.018 #HLD: chronic stable takes Rosuvastatin;continue #Urinary retention #OAB: Chronic stable Takes oxybutynin; Hold Void Trial tomorrow or following day Disposition: PCP: Dr. Torres CODE STATUS: Full code VTE prophylaxis: Lovenox SQ Admission and Anticipated Discharge Date Admission Date: January 13, 2023 Subjective Patient evaluated at bedside with present. She reports feeling well rested and with pain in much more control, as earlier in the morning the splint felt too tight; however, after ortho adjusted, she states she is comfortable. She denies any chest pain, palpitations, dyspnea, or any other acute concerns. She notes that yesterday she had urinary retention prompting placement of marquis but has never experienced that previously Review of Systems Review of Systems: All systems reviewed & are unremarkable except as noted in Subjective Physical Exam Eyes: PERRL, conjunctivae normal, anicteric sclerae ENMT: external ear and nose normal, oropharynx normal Respiratory: normal respiratory effort, lungs clear to auscultation Cardiovascular: RRR, no murmur, no edema Gastrointestinal (Abdomen): normal bowel sounds, soft, nontender, no hepatosplenomegaly Musculoskeletal: left trauma splint in place Results & Data Results & Data Vital Signs (Past 12 Hours) Vital Signs Temp Pulse Resp BP Pulse Ox O2 Del Method O2 Flow Rate 01/15/23 14:57 37.3 C 73 18 155/63 H 93 Nasal Cannula 3 01/15/23 10:17 Room Air 01/15/23 07:23 36.6 C 71 16 139/78 95 Nasal Cannula 3 Laboratory Results Short CBC 01/15/23 Range/Units 05:47 WBC 8.45 (4.8-10.8) K/ul Hgb 11.8 L (12.0-16.0) g/dl Hct 35.2 L (37.0-47.0) % Plt Count 156 (130-400) K/uL BMP 01/15/23 05:47 Sodium 138 Potassium 3.8 Chloride 106 Carbon Dioxide 27 BUN 19 Creatinine 0.78 Glucose 91 Calcium 8.9 Diagnostic Findings No new diagnostics for review Medications Administered Home Medications Medication Instructions Recorded Confirmed Last Taken CPAP Machine #1 ea 06/30/19 01/13/23 Unknown ascorbic acid (vitamin C) 1,000 mg 1 g PO QAM 02/24/20 01/13/23 11/27/22 tablet (Vitamin C) compr.stocking,knee,long,x-lrg #2 ea 05/10/20 01/13/23 Unknown aspirin 81 mg tablet,delayed 81 mg PO DAILY 11/28/22 01/13/23 11/27/22 release clonazepam 1 mg tablet 1 mg PO HS 11/28/22 01/13/23 11/27/22 cyanocobalamin (vitamin B-12) 250 250 mcg PO DAILY 11/28/22 01/13/23 11/27/22 mcg tablet (Vitamin B-12) escitalopram oxalate 10 mg tablet 10 mg PO DAILY 11/28/22 01/13/23 11/27/22 furosemide 20 mg tablet (Lasix) 20 mg PO BID 11/28/22 01/13/23 11/27/22 levothyroxine 112 mcg tablet 112 mcg PO DAILYBB 11/28/22 01/13/23 11/27/22 losartan 25 mg tablet 25 mg PO DAILY 11/28/22 01/13/23 11/27/22 meloxicam 7.5 mg tablet 7.5 mg PO QAM 11/28/22 01/13/23 11/27/22 omega 5-dsu-rrs-fish oil 1,000 mg 1 cap PO QAM 11/28/22 01/13/23 11/27/22 (120 mg-180 mg) capsule (Fish Oil) oxybutynin chloride 5 mg 5 mg PO QAM 11/28/22 01/13/23 11/27/22 tablet,extended release 24 hr vitamin E 268 mg (400 unit) capsule 268 mg PO DAILY 11/28/22 01/13/23 11/27/22 rosuvastatin 10 mg tablet 10 mg PO DAILY 01/13/23 01/13/23 Unknown Active Medications Generic Name Dose Route Start Last Admin Trade Name Lizzie PRRema Reason Stop Dose Admin Acetaminophen 650 mg 01/15/23 08:45 01/15/23 17:48 Acetaminophen 325 Mg Tab PO 02/14/23 08:44 650 mg Q6 CASTILLO Administration Aspirin 81 mg 01/14/23 09:00 01/15/23 08:04 Aspirin 81 Mg Ectab PO 02/13/23 08:59 81 mg DAILY CASTILLO Administration Clonazepam 1 mg 01/13/23 21:00 01/14/23 20:28 Clonazepam 1 Mg Tab PO 02/12/23 20:59 1 mg HS CASTILLO Administration Escitalopram Oxalate 10 mg 01/14/23 09:00 01/15/23 08:04 Escitalopram Oxalate 10 Mg Tab PO 02/13/23 08:59 10 mg DAILY CASTILLO Administration Furosemide 20 mg 01/13/23 21:00 01/15/23 08:04 Furosemide 20 Mg Tab PO 02/12/23 20:59 20 mg BID CASTILLO Administration Levothyroxine Sodium 112 mcg 01/14/23 06:30 01/15/23 05:38 Levothyroxine Sodium 112 Mcg Tablet PO 02/13/23 06:29 112 mcg DAILYBB CASTILLO Administration Losartan Potassium 25 mg 01/14/23 09:00 01/15/23 08:48 Losartan Potassium 25 Mg Tab PO 02/13/23 08:59 25 mg DAILY CASTILLO Administration Meloxicam 7.5 mg 01/14/23 09:00 01/15/23 08:03 Meloxicam 7.5 Mg Tab PO 02/13/23 08:59 7.5 mg QAM CASTILLO Administration Morphine Sulfate 2 mg 01/13/23 18:29 01/13/23 19:44 Morphine Sulfate 4 Mg/Ml 1 Ml Carp\Vial IV 01/27/23 18:28 2 mg Q2H PRN Administration Severe Pain (Rating 7,8,9,10) Oxybutynin Chloride 5 mg 01/14/23 09:00 01/15/23 08:03 Oxybutynin Chloride Xl 5 Mg Tabcr PO 02/13/23 08:59 5 mg QAM CASTILLO Administration Oxycodone HCl 2.5 mg 01/14/23 17:08 01/15/23 05:37 Oxycodone Hcl Ir 5 Mg Tab (Immediate Release) PO 01/27/23 19:03 2.5 mg Q6H PRN Administration Pain (5) HTN (hypertension) Hypertension type: essential hypertension Qualified Code(s): I10 - Essential (primary) hypertension
[2023-01-15] MEDS: clonazePAM 1 MG TAB PO SCH (20:20)
--- NOTE | 2023-01-15 20:47 | Electrocardiogram Report ---
Test Reason : Blood Pressure : / mmHG Vent. Rate : 064 BPM Atrial Rate : 064 BPM P-R Int : 188 ms QRS Dur : 084 ms QT Int : 420 ms P-R-T Axes : 020 009 068 degrees QTc Int : 433 ms Normal sinus rhythm Anteroseptal infarct , age undetermined Abnormal ECG When compared with ECG of 28-NOV-2022 15:25, Premature supraventricular complexes are no longer Present Vent. rate has decreased BY 33 BPM Anteroseptal infarct is now Present ST no longer depressed in Lateral leads T wave inversion no longer evident in Lateral leads Confirmed by Flash Perez ([id number]) on 01/15/2023 8:46:57 PM Referred By: Confirmed By:Flash Perez
[2023-01-16] MEDS: LEVOTHYROXINE SODIUM 112 MCG TABLET PO SCH (06:03)
[2023-01-16] MEDS: ACETAMINOPHEN 325 MG TAB PO SCH ×4 (06:03→22:42)
[2023-01-16 06:17] LABS: Hematocrit (blood only) 35.9 % (37.0-47.0); Mean Corpuscular Hemoglobin 29.9 pg (25.0-34.0); Mean Corpuscular Hgb Conc 33.4 g/dL (32.0-36.0); Mean Corpuscular Volume 89.5 fL (80.0-100.0); Mean Platelet Volume 10.4 fL (9.4-12.4); Platelet Count 166 K/uL (130-400); RDW Coefficient of Variation 13.2 % (11.5-14.5); RDW Standard Deviation 43.9 fL (36.4-46.3); Red Blood Count 4.01 M/uL (4.20-5.40); White Blood Count 5.82 K/ul (4.8-10.8)
[2023-01-16 06:21] LABS: BUN Creatinine Ratio 28.1 (10-20); Calcium 8.8 mg/dl (8.6-10.3); Creatinine Clr Calc Pharmacy 82.4 ml/min; Est GFR (African American) 91.7 ml/min; Est GFR (Non-African American) 79.1 ml/min; Magnesium 1.9 mg/dl (1.7-2.4); Phosphorus 2.8 mg/dl (2.5-4.9); Potassium 3.7 mmol/L (3.5-5.1)
[2023-01-16] MEDS: MELOXICAM 7.5 MG TAB PO SCH (07:32)
[2023-01-16] MEDS: LOSARTAN POTASSIUM 25 MG TAB PO SCH (07:32)
[2023-01-16] MEDS: ESCITALOPRAM OXALATE 10 MG TAB PO SCH (07:32)
[2023-01-16] MEDS: FUROSEMIDE 20 MG TAB PO SCH ×2 (07:32→20:01)
[2023-01-16] MEDS: ASPIRIN 81 MG ECTAB PO SCH (07:32)
[2023-01-16] MEDS: oxyCODONE HCL IR 5 MG TAB (IMMEDIATE RELEASE) PO PRN ×2 (10:18→20:00)
[2023-01-16] MEDS ORDERED: DOCUSATE SODIUM/SENNA 50/8.6MG TAB PO STA (14:32)
[2023-01-16] MEDS: clonazePAM 1 MG TAB PO SCH (20:00)
--- NOTE | 2023-01-16 23:52 | Hospitalist Progress Note ---
Date of Service January 16, 2023 Assessment & Plan (1) Ambulatory dysfunction: (2) Closed fracture of left distal fibula: (3) Status post fall: (4) Obstructive sleep apnea: (5) HTN (hypertension): (6) Hyperlipemia: (7) Depression with anxiety: (8) Hypothyroidism: (9) Overactive bladder: (10) (HFpEF) heart failure with preserved ejection fraction: Plan Ms Muller is an 87-year-old female with chronic heart failure with preserved efection fractions (EF 65%), hypertension, ELLI on CPAP, hypothyroidism, OAB, and ambulatory dysfunction 2/2 severe left knee osteoarthritis who is s/p fall 01/13. Patient was recently admitted 11/28/2022 to 12/05/2022 for symptoms of heart failure including lower extremity edema. She has been working with home PT services. She lives with her 92 year old . In the ED, Ankle x-ray indicates Ku C fibula fracture. Her other chronic comorbidities are stable. Ortho plans conservative management for left ankle fracture with splinting and pain management. Plans for inpatient rehab, possibly [facility] #Closed fracture of left distal fibula: #Ambulatory dysfunction: #Mechanical Fall #Left knee osteoarthritis ankle x-ray: Ku C fibular fracture. There is likely a syndesmotic injury. hip/pelvis x-ray negative Orthopedics consult, conservative management Continue scheduled Tylenol and Oxy IR as needed PT/OT on consult - follow-up with orthopedics next week for removal of the trauma splint and placement in a cam walker boot, with nonoperative providers such as Dr. Manley or Dr. Tadeo( [phone]) #ELLI: Chronic stable CPAP ordered nightly per protocol #Chronic HFpEF #HTN Last ECHO 11/29/2022 EF 60 to 65% left ventricle wall motion normal; mild concentric LVH Takes losartan and Lasix; continue Hydralazine TID PRN with parameters #Depression with anxiety: Takes Lexapro and clonazepam; continue #Hypothyroidism: Chronic stable Takes levothyroxine; continue TSH today 3.018 #HLD: chronic stable takes Rosuvastatin;continue #Urinary retention #OAB: Chronic stable Takes oxybutynin; Hold Void Trial tomorrow 01/16 Disposition: PCP: Dr. Torres CODE STATUS: Full code VTE prophylaxis: Lovenox SQ Admission and Anticipated Discharge Date Admission Date: January 13, 2023 Subjective Patient evaluated at bedside with and sons present. Patient without acute concerns this am. working with CM for placement Review of Systems Review of Systems: All systems reviewed & are unremarkable except as noted in Subjective Physical Exam Eyes: PERRL, conjunctivae normal, anicteric sclerae ENMT: external ear and nose normal, oropharynx normal Respiratory: normal respiratory effort, lungs clear to auscultation Cardiovascular: RRR, no murmur, no edema Gastrointestinal (Abdomen): normal bowel sounds, soft, nontender, no hepatosplenomegaly Results & Data Results & Data Vital Signs (Past 12 Hours) Vital Signs Temp Pulse Pulse Resp BP Pulse Ox O2 Del Method 01/16/23 22:03 70 18 93 01/16/23 19:51 36.6 C 75 18 148/83 H 96 Room Air 01/16/23 14:40 36.9 C 66 18 134/88 93 Room Air O2 Flow Rate 01/16/23 22:03 2 01/16/23 19:51 01/16/23 14:40 Laboratory Results Short CBC 01/16/23 Range/Units 05:37 WBC 5.82 (4.8-10.8) K/ul Hgb 12.0 (12.0-16.0) g/dl Hct 35.9 L (37.0-47.0) % Plt Count 166 (130-400) K/uL BMP 01/16/23 05:37 Sodium 139 Potassium 3.7 Chloride 105 Carbon Dioxide 30 BUN 18 Creatinine 0.64 Glucose 95 Calcium 8.8 Diagnostic Findings No new data for review Medications Administered Home Medications Medication Instructions Recorded Confirmed Last Taken CPAP Machine #1 ea 06/30/19 01/13/23 Unknown ascorbic acid (vitamin C) 1,000 mg 1 g PO QAM 02/24/20 01/13/23 11/27/22 tablet (Vitamin C) compr.stocking,knee,long,x-lrg #2 ea 05/10/20 01/13/23 Unknown aspirin 81 mg tablet,delayed 81 mg PO DAILY 11/28/22 01/13/23 11/27/22 release clonazepam 1 mg tablet 1 mg PO HS 11/28/22 01/13/23 11/27/22 cyanocobalamin (vitamin B-12) 250 250 mcg PO DAILY 11/28/22 01/13/2311/27/23 mcg tablet (Vitamin B-12) escitalopram oxalate 10 mg tablet 10 mg PO DAILY 11/28/22 01/13/23 11/27/22 furosemide 20 mg tablet (Lasix) 20 mg PO BID 11/28/22 01/13/23 11/27/22 levothyroxine 112 mcg tablet 112 mcg PO DAILYBB 11/28/22 01/13/23 11/27/22 losartan 25 mg tablet 25 mg PO DAILY 11/28/22 01/13/23 11/27/22 meloxicam 7.5 mg tablet 7.5 mg PO QAM 11/28/22 01/13/23 11/27/22 omega 7-qov-hst-fish oil 1,000 mg 1 cap PO QAM 11/28/22 01/13/23 11/27/22 (120 mg-180 mg) capsule (Fish Oil) oxybutynin chloride 5 mg 5 mg PO QAM 11/28/22 01/13/23 11/27/22 tablet,extended release 24 hr vitamin E 268 mg (400 unit) capsule 268 mg PO DAILY 11/28/22 01/13/23 11/27/22 rosuvastatin 10 mg tablet 10 mg PO DAILY 01/13/23 01/13/23 Unknown Active Medications Generic Name Dose Route Start Last Admin Trade Name Lizzie PRRema Reason Stop Dose Admin Acetaminophen 650 mg 01/15/23 08:45 01/16/23 22:42 Acetaminophen 325 Mg Tab PO 02/14/23 08:44 650 mg Q6 CASTILLO Administration Aspirin 81 mg 01/14/23 09:00 01/16/23 07:32 Aspirin 81 Mg Ectab PO 02/13/23 08:59 81 mg DAILY CASTILLO Administration Clonazepam 1 mg 01/13/23 21:00 01/16/23 20:00 Clonazepam 1 Mg Tab PO 02/12/23 20:59 1 mg HS CASTILLO Administration Escitalopram Oxalate 10 mg 01/14/23 09:00 01/16/23 07:32 Escitalopram Oxalate 10 Mg Tab PO 02/13/23 08:59 10 mg DAILY CASTILLO Administration Furosemide 20 mg 01/13/23 21:00 01/16/23 20:01 Furosemide 20 Mg Tab PO 02/12/23 20:59 20 mg BID CASTILLO Administration Levothyroxine Sodium 112 mcg 01/14/23 06:30 01/16/23 06:03 Levothyroxine Sodium 112 Mcg Tablet PO 02/13/23 06:29 112 mcg DAILYBB CASTILLO Administration Losartan Potassium 25 mg 01/14/23 09:00 01/16/23 07:32 Losartan Potassium 25 Mg Tab PO 02/13/23 08:59 25 mg DAILY CASTILLO Administration Meloxicam 7.5 mg 01/14/23 09:00 01/16/23 07:32 Meloxicam 7.5 Mg Tab PO 02/13/23 08:59 7.5 mg QAM CASTILLO Administration Morphine Sulfate 2 mg 01/13/23 18:29 01/13/23 19:44 Morphine Sulfate 4 Mg/Ml 1 Ml Carp\Vial IV 01/27/23 18:28 2 mg Q2H PRN Administration Severe Pain (Rating 7,8,9,10) Oxybutynin Chloride 5 mg 01/14/23 09:00 01/15/23 08:03 Oxybutynin Chloride Xl 5 Mg Tabcr PO 02/13/23 08:59 5 mg QAM CASTILLO Administration Oxycodone HCl 2.5 mg 01/14/23 17:08 01/16/23 20:00 Oxycodone Hcl Ir 5 Mg Tab (Immediate Release) PO 01/27/23 19:03 2.5 mg Q6H PRN Administration Pain (5) HTN (hypertension) Hypertension type: essential hypertension Qualified Code(s): I10 - Essential (primary) hypertension
[2023-01-17] MEDS: oxyCODONE HCL IR 5 MG TAB (IMMEDIATE RELEASE) PO PRN ×4 (02:12→22:59)
[2023-01-17] MEDS: ACETAMINOPHEN 325 MG TAB PO SCH ×3 (05:40→16:49)
[2023-01-17] MEDS: LEVOTHYROXINE SODIUM 112 MCG TABLET PO SCH (05:40)
[2023-01-17 07:19] LABS: BUN Creatinine Ratio 28.6 (10-20); Creatinine Clr Calc Pharmacy 84.6 ml/min; Est GFR (African American) 92.2 ml/min; Est GFR (Non-African American) 79.5 ml/min; Magnesium 1.8 mg/dl (1.7-2.4); Phosphorus 3.4 mg/dl (2.5-4.9); Potassium 3.6 mmol/L (3.5-5.1)
[2023-01-17] MEDS: LOSARTAN POTASSIUM 25 MG TAB PO SCH (07:44)
[2023-01-17] MEDS: MELOXICAM 7.5 MG TAB PO SCH (07:44)
[2023-01-17] MEDS: ESCITALOPRAM OXALATE 10 MG TAB PO SCH (07:44)
[2023-01-17] MEDS: FUROSEMIDE 20 MG TAB PO SCH ×2 (07:44→21:40)
[2023-01-17] MEDS: ASPIRIN 81 MG ECTAB PO SCH (07:45)
[2023-01-17] MEDS: ENOXAPARIN INJ 40 MG/0.4 ML SYR SQ SCH (07:45)
[2023-01-17] MEDS: DOCUSATE SODIUM/SENNA 50/8.6MG TAB PO SCH (07:48)
[2023-01-17] MEDS: POLYETHYLENE (MIRALAX) 17 GM PACK PO SCH (07:48)
--- NOTE | 2023-01-17 11:44 | Hospitalist Progress Note ---
Date of Service January 17, 2023 Assessment & Plan (1) Ambulatory dysfunction: (2) Closed fracture of left distal fibula: (3) Status post fall: (4) Obstructive sleep apnea: (5) HTN (hypertension): (6) Hyperlipemia: (7) Depression with anxiety: (8) Hypothyroidism: (9) Overactive bladder: (10) (HFpEF) heart failure with preserved ejection fraction: Plan Ms Muller is an 87-year-old female with chronic heart failure with preserved efection fractions (EF 65%), hypertension, ELLI on CPAP, hypothyroidism, OAB, and ambulatory dysfunction 2/2 severe left knee osteoarthritis who is s/p fall 01/13. Patient was recently admitted 11/28/2022 to 12/05/2022 for symptoms of heart failure including lower extremity edema. She has been working with home PT services. She lives with her 92 year old . In the ED, Ankle x-ray indicates Ku C fibula fracture. Her other chronic comorbidities are stable. Ortho plans conservative management for left ankle fracture with splinting and pain management. Closed fracture of left distal fibula: Ambulatory dysfunction: Mechanical Fall Left knee osteoarthritis --ankle x-ray: Ku C fibular fracture. There is likely a syndesmotic injury. --hip/pelvis x-ray negative Orthopedics consult, conservative management Continue scheduled Tylenol and Oxy IR as needed PT/OT on consult - follow-up with orthopedics next week for removal of the trauma splint and placement in a cam walker boot, with nonoperative providers such as Dr. Manley or Dr. Tadeo( [phone]) ELLI: Chronic stable CPAP ordered nightly per protocol Chronic HFpEF HTN Last ECHO 11/29/2022 EF 60 to 65% left ventricle wall motion normal; mild con centric LVH Takes losartan and Lasix; continue Hydralazine TID PRN with parameters euvolemic - weights reviewed Depression with anxiety: chronic, stable. Takes Lexapro and clonazepam; continue Hypothyroidism: Chronic stable Takes levothyroxine; continue TSH3.018 HLD: chronic stable takes Rosuvastatin;continue Urinary retention OAB: Chronic stable Takes oxybutynin; Hold Pt previously had to straight cath herself due to retention issues would recommend continued marquis cath until able to get out of bed and to bedside commode more readily Disposition: Pt medically stable to discharge to [facility], was accepted today and transport arranged; however pt declining discharge and states she was told she wasn't going to leave for 1-2 days and shes just not ready, encourage her that she needs intensive rehab to regain strength and mobility given fracture and prolonged hosp stay has increased complication risks. She accepts risks and refusing d/c today. Encourage pt to plan to d/c tomorrow to [facility] pending bed availability and continued clinically stable course. Discussed with pt george Gillette [phone] who agrees with above. He also was in understanding pt wouldn't leave for another 2-3 days so they are not anticipating d/c today PCP: Dr. Torres CODE STATUS: Full code VTE prophylaxis: Lovenox SQ Admission and Anticipated Discharge Date Admission Date: January 13, 2023 Supervising Physician Co-Signing Physician Notes I have seen and examined the patient and have discussed the case with the provider above. I agree with the assessment and plan as stated. 87 yo F with some discomfort in her immovable cast. She spoke with orthopedics about this. She is medically stable for discharge but very upset about not having her "things" and "Clothes" together. Was given the impression she needed to stay in the hospital for another 1-2 days. Morbidly obese, NAD, hemodynamically stable. No peripheral edema. LLE in cast. Labs and meds reviewed. Cont care plan as outlined above. Dispo to [facility] in am if bed is available. .Ken, Subjective Patient was seen and evaluated in room 312. Follow-up left fibular fracture. She had large BM yesterday. She denies f/c/s, chest pain, sob, n/v/d. Complains of burning to LLE where splint is in place. No nursing concerns. Pt medically stable for d/c but states she was told she would still be here for another 1-2 days and is adamant about not being discharged today. Review of Systems Review of Systems: All systems reviewed & are unremarkable except as noted in HPI & below Physical Exam Physical Exam: Gen: WD/WN, Elderly, F, obese, NAD, A&O x3 HEENT: Normocephalic, atraumatic, conjunctivae moist, sclerae anicteric, mucous membranes moist. Lung: Clear to Auscultation bilaterally, no wheezes/rales/rhonchi Heart: Regular rate, regular rhythm, no murmurs, rubs, or gallops Abdomen: large but Soft, NT, ND +BS x 4 Extremities: No edema, LLE splint in place, nVI distally Skin: Warm, no rash, negative turgor. Results & Data Results & Data Vital Signs (Past 12 Hours) Vital Signs Temp Pulse Resp BP Pulse Ox O2 Del Method O2 Flow Rate 01/17/23 07:35 93 Room Air 01/17/23 07:35 Room Air, CPAP 01/17/23 07:32 37.0 C 65 16 137/92 95 Nasal Cannula 2 Laboratory Results BMP 01/17/23 06:21 Sodium 140 Potassium 3.6 Chloride 105 Carbon Dioxide 29 BUN 18 Creatinine 0.63 Glucose 92 Calcium 9.0 Medications Administered Medication List Acetaminophen (Acetaminophen 325 Mg Tab) 650 mg PO Q6 CASTILLO Stop: 02/14/23 08:44 Last Admin: 01/17/23 11:24 Dose: 650 mg Documented By: Admin: 01/17/23 05:40 Dose: 650 mg Documented By: Admin: 01/16/23 22:42 Dose: 650 mg Documented By: Admin: 01/16/23 17:19 Dose: 650 mg Documented By: Admin: 01/16/23 11:10 Dose: 650 mg Documented By: Admin: 01/16/23 06:03 Dose: 650 mg Documented By: Admin: 01/15/23 23:29 Dose: 650 mg Documented By: Admin: 01/15/23 17:48 Dose: 650 mg Documented By: JEAN CLAUDE Admin: 01/15/23 12:18 Dose: 650 mg Documented By: JEAN CLAUDE Admin: 01/15/23 08:47 Dose: 650 mg Documented By: JEAN CLAUDE Aspirin (Aspirin 81 Mg Ectab) 81 mg PO DAILY CASTILLO Stop: 02/13/23 08:59 Last Admin: 01/17/23 07:45 Dose: 81 mg Documented By: Admin: 01/16/23 07:32 Dose: 81 mg Documented By: Admin: 01/15/23 08:04 Dose: 81 mg Documented By: JEAN CLAUDE Admin: 01/14/23 08:43 Dose: 81 mg Documented By: JEAN CLAUDE Clonazepam (Clonazepam 1 Mg Tab) 1 mg PO HS CASTILLO Stop: 02/12/23 20:59 Last Admin: 01/16/23 20:00 Dose: 1 mg Documented By: Admin: 01/15/23 20:20 Dose: 1 mg Documented By: Admin: 01/14/23 20:28 Dose: 1 mg Documented By: Admin: 01/13/23 22:19 Dose: 1 mg Documented By: ALLEN Enoxaparin Sodium (Enoxaparin Inj 40 Mg/0.4 Ml Syr) 40 mg SQ QAM CASTILLO Stop: 02/16/23 08:59 Last Admin: 01/17/23 07:45 Dose: 40 mg Documented By: VIRGINIA Escitalopram Oxalate (Escitalopram Oxalate 10 Mg Tab) 10 mg PO DAILY CASTILLO Stop: 02/13/23 08:59 Last Admin: 01/17/23 07:44 Dose: 10 mg Documented By: Admin: 01/16/23 07:32 Dose: 10 mg Documented By: Admin: 01/15/23 08:04 Dose: 10 mg Documented By: JEAN CLAUDE Admin: 01/14/23 08:43 Dose: 10 mg Documented By: JEAN CLAUDE Furosemide (Furosemide 20 Mg Tab) 20 mg PO BID CASTILLO Stop: 02/12/23 20:59 Last Admin: 01/17/23 07:44 Dose: 20 mg Documented By: Admin: 01/16/23 20:01 Dose: 20 mg Documented By: Admin: 01/16/23 07:32 Dose: 20 mg Documented By: Admin: 01/15/23 20:21 Dose: 20 mg Documented By: Admin: 01/15/23 08:04 Dose: 20 mg Documented By: JEAN CLAUDE Admin: 01/14/23 20:29 Dose: 20 mg Documented By: Admin: 01/14/23 08:42 Dose: 20 mg Documented By: JEAN CLAUDE Admin: 01/13/23 22:19 Dose: 20 mg Documented By: ALLEN Levothyroxine Sodium (Levothyroxine Sodium 112 Mcg Tablet) 112 mcg PO DAILYBB CASTILLO Stop: 02/13/23 06:29 Last Admin: 01/17/23 05:40 Dose: 112 mcg Documented By: Admin: 01/16/23 06:03 Dose: 112 mcg Documented By: Admin: 01/15/23 05:38 Dose: 112 mcg Documented By: Admin: 01/14/23 06:32 Dose: Not Given Documented By: ALLEN Losartan Potassium (Losartan Potassium 25 Mg Tab) 25 mg PO DAILY [facility] Stop: 02/13/23 08:59 Last Admin: 01/17/23 07:44 Dose: 25 mg Documented By: Admin: 01/16/23 07:32 Dose: 25 mg Documented By: Admin: 01/15/23 08:48 Dose: 25 mg Documented By: JEAN CLAUDE Admin: 01/14/23 08:42 Dose: 25 mg Documented By: JEAN CLAUDE Meloxicam (Meloxicam 7.5 Mg Tab) [facility] [place] Stop: 02/13/23 08:59 Last Admin: 01/17/23 07:44 Dose: 7.5 mg Documented By: Admin: 01/16/23 07:32 Dose: 7.5 mg Documented By: Admin: 01/15/23 08:03 Dose: 7.5 mg Documented By: JEAN CLAUDE Admin: 01/14/23 08:43 Dose: 7.5 mg Documented By: JEAN CLAUDE Morphine Sulfate (Morphine Sulfate 4 Mg/Ml 1 Ml Carp\\Vial) 2 mg IV Q2H PRN PRN Reason: Severe Pain (Rating 7,8,9,10) Stop: 01/27/23 18:28 Last Admin: 01/13/23 19:44 Dose: 2 mg Documented By: GUILLE Oxybutynin Chloride (Oxybutynin Chloride Xl 5 Mg Tabcr) [facility] [place] Stop: 02/13/23 08:59 Last Admin: 01/15/23 08:03 Dose: 5 mg Documented By: JEAN CLAUDE Admin: 01/14/23 08:43 Dose: 5 mg Documented By: JEAN CLAUDE Oxycodone HCl (Oxycodone Hcl Ir 5 Mg Tab (Immediate Release)) 2.5 mg PO Q6H PRN PRN Reason: Pain Stop: 01/27/23 19:03 Last Admin: 01/17/23 08:54 Dose: 2.5 mg Documented By: Admin: 01/17/23 02:12 Dose: 2.5 mg Documented By: Admin: 01/16/23 20:00 Dose: 2.5 mg Documented By: Admin: 01/16/23 10:18 Dose: 2.5 mg Documented By: Admin: 01/15/23 20:20 Dose: 2.5 mg Documented By: Admin: 01/15/23 05:37 Dose: 2.5 mg Documented By: Admin: 01/14/23 20:28 Dose: 2.5 mg Documented By: ZABRINA Polyethylene Glycol (Polyethylene (Miralax) 17 Gm Pack) 17 gm PO DAILY CASTILLO Stop: 02/16/23 08:59 Last Admin: 01/17/23 07:48 Dose: Not Given Documented By: VIRGINIA Senna/Docusate Sodium (Docusate Sodium/Senna 50/8.6mg Tab) 1 tab PO QAM CASTILLO Stop: 02/16/23 08:59 Last Admin: 01/17/23 07:48 Dose: Not Given Documented By: VIRGINIA Discontinued Medications Acetaminophen (Ofirmev) 1,000 mg in 100 mls @ 400 mls/hr IV NOW STA Stop: 01/13/23 13:21 Last Infusion: 01/13/23 13:45 Dose: 0 mls/hr Documented By: Admin: 01/13/23 13:27 Dose: 400 mls/hr Documented By: GILSON Sodium Chloride (Nss) 500 mls @ 80 mls/hr IV .Q6H15M CASTILLO Stop: 02/12/23 13:14 Last Infusion: 01/14/23 17:05 Dose: 0 mls/hr Documented By: JEAN CLAUDE Admin: 01/14/23 15:34 Dose: Not Given Documented By: JEAN CLAUDE Admin: 01/14/23 12:03 Dose: 80 mls/hr Documented By: JEAN CLAUDE Infusion: 01/14/23 11:22 Dose: 80 mls/hr Documented By: JEAN CLAUDE Admin: 01/14/23 05:07 Dose: 80 mls/hr Documented By: Infusion: 01/14/23 04:39 Dose: 80 mls/hr Documented By: Admin: 01/13/23 22:24 Dose: 80 mls/hr Documented By: Infusion: 01/13/23 21:04 Dose: 0 mls/hr Documented By: Admin: 01/13/23 13:33 Dose: 80 mls/hr Documented By: GILSON Acetaminophen (Ofirmev) 1,000 mg in 100 mls @ 400 mls/hr IV Q8H PRN PRN Reason: Pain Stop: 01/16/23 20:59 Last Infusion: 01/14/23 05:53 Dose: 0 mls/hr Documented By: Admin: 01/14/23 05:07 Dose: 400 mls/hr Documented By: ALLEN Morphine Sulfate (Morphine Sulfate 2 Mg/Ml Carp) 1 mg IV NOW STA Stop: 01/13/23 13:08 Last Admin: 01/13/23 13:27 Dose: 1 mg Documented By: GILSON Morphine Sulfate (Morphine Sulfate 2 Mg/Ml Carp) 2 mg IV NOW STA Stop: 01/13/23 14:17 Last Admin: 01/13/23 14:42 Dose: 2 mg Documented By: GILSON Ondansetron HCl (Ondansetron Inj 2 Mg/Ml 2 Ml Vial) 4 mg IV NOW STA Stop: 01/13/23 14:59 Last Admin: 01/13/23 15:09 Dose: 4 mg Documented By: SREE Oxycodone HCl (Oxycodone Hcl Ir 5 Mg Tab (Immediate Release)) 5 mg PO Q6H PRN PRN Reason: Pain Stop: 01/27/23 19:03 Last Admin: 01/14/23 05:56 Dose: 5 mg Documented By: ALLEN Potassium Phosphate (Pot Phosphate Monobasic W/ Sod Tab) 2 tab PO NOW STA Stop: 01/15/23 08:29 Last Admin: 01/15/23 09:21 Dose: 2 tab Documented By: JEAN CLAUDE Senna/Docusate Sodium (Docusate Sodium/Senna 50/8.6mg Tab) 1 tab PO NOW STA Stop: 01/16/23 14:33 Last Admin: 01/16/23 14:44 Dose: 1 tab Documented By: VIRGINIA (5) HTN (hypertension) Hypertension type: essential hypertension Qualified Code(s): I10 - Essential (primary) hypertension
[2023-01-17] MEDS: clonazePAM 1 MG TAB PO SCH (21:40)
[2023-01-18] MEDS: ACETAMINOPHEN 325 MG TAB PO SCH ×4 (00:39→12:03)
[2023-01-18] MEDS: oxyCODONE HCL IR 5 MG TAB (IMMEDIATE RELEASE) PO PRN ×2 (05:56→15:04)
[2023-01-18] MEDS: LEVOTHYROXINE SODIUM 112 MCG TABLET PO SCH (05:57)
[2023-01-18] MEDS: MELOXICAM 7.5 MG TAB PO SCH (08:14)
[2023-01-18] MEDS: ESCITALOPRAM OXALATE 10 MG TAB PO SCH (08:14)
[2023-01-18] MEDS: DOCUSATE SODIUM/SENNA 50/8.6MG TAB PO SCH (08:14)
[2023-01-18] MEDS: FUROSEMIDE 20 MG TAB PO SCH (08:14)
[2023-01-18] MEDS: LOSARTAN POTASSIUM 25 MG TAB PO SCH (08:14)
[2023-01-18] MEDS: ASPIRIN 81 MG ECTAB PO SCH (08:14)
[2023-01-18] MEDS: ENOXAPARIN INJ 40 MG/0.4 ML SYR SQ SCH (08:15)
[2023-01-18] MEDS: POLYETHYLENE (MIRALAX) 17 GM PACK PO SCH ×2 (08:15→08:16)
--- NOTE | 2023-01-18 14:29 | Discharge Summary ---
Discharge Summary Date of Service January 18, 2023 Notes For Next Care Provider Non-operative L ankle fracture, conservative mgmt with ortho f/u, inpatient rehab Medication Changes From Visit Cont. PRN tylenol and PRN oxycodone for pain, bowel regimen Admission HPI Per Admitting Provider Ms. Muller is an 87-year-old female that presents to the ED today s/p fall at home while going to her bathroom earlier today. At baseline, patient has ambulatory dysfunction. Additional past medical history includes HTN, HLD, GERD, HFpEF, severe ELLI and morbid obesity. She was recently admitted to [facility] from 11/28/2022 to 12/05/2022 for symptoms of heart failure including lower extremity edema. Ankle x-ray indicates Ku C fibula fracture. Chest x-ray negative. No leukocytosis or signs of infection. BMP and CBC unremarkable. At baseline she ambulates using a walker. She recently saw sleep medicine and has been on CPAP however was off of it for the last year due to it being recalled. She has since restarted CPAP at home at night. Patient denies headache, dizziness, syncopal episodes during the event, chest pain, palpitations, auditory visual changes, abdominal pain or tenderness, changes in appetite, urine or bowel changes, other recent falls or trauma. No leukocytosis and otherwise labs unremarkable. Ankle x-ray indicates a displaced distal fibular fracture/Ku C fracture. Orthopedics has evaluated the patient in the ED and recommends conservative management with a splint and outpatient follow-up. We will provide pain control and PT OT while she is here. As her injury complicates her ambulatory dysfunction she will be admitted for further evaluation and management. Please see A/P for further details. Admission Exam Per Admitting Provider Neuro: AAOx4, PERRLA, no aphagia, memory changes, CNII-XII grossly intact HEENT: head normocephalic, moist mucus membranes CV: S1/S2, (-) M/G/R, (-) edema, cap refill < 3 seconds (+) pedal pulses bilaterally Resp: See Dr. Bosch's addendum for further Physical exam. On 2LNC. GI: Abdomen S/NT/ND, Ax4 bowel sounds, (-) CVA tenderness Musculoskeletal: 5/5 B/L UE strength, 5/5 B/L LE strength. Left ankle with foot drop and ecchymosis around ankle Skin: (-) rashes , (-) erythema. Psych: euthymic mood Principal Dx & Hospital Course #1 = Principal Diagnosis (1) Ambulatory dysfunction: (2) Closed fracture of left distal fibula: (3) Status post fall: (4) Obstructive sleep apnea: (5) HTN (hypertension): (6) Hyperlipemia: (7) Depression with anxiety: (8) Hypothyroidism: (9) Overactive bladder: (10) (HFpEF) heart failure with preserved ejection fraction: Plan This is an 87-year-old female with chronic heart failure with preserved ejection fractions (EF 65%), hypertension, ELLI on CPAP, hypothyroidism, OAB, and ambulatory dysfunction 2/2 severe left knee osteoarthritis who is s/p fall 01/13 who was admitted after mechanical fall at home and ankle XR indicates Ku C fibula fracture. Orthopedic surgery evaluated and recommends conservative management for left ankle fracture with splinting and pain management. Continue scheduled Tylenol and Oxy IR as needed and discharging to SNF for further rehabilitation given PT/OT recommendations. Patient to follow-up with orthopedics next week for removal of the trauma splint and placement in a cam walker boot, with nonoperative providers such as Dr. Manley or Dr. Tadeo ([phone]). Patient is to be touch toe weightbearing in the trauma splint. Urinary retention has been noted during admission requiring placement of marquis catheter. Will continue holding oxybutynin for now given retention and allow inpatient rehab providers to resume when appropriate. Will discharge with marquis in place until able to reliably ambulate to bedside commode at rehab and then plan trial of void for marquis removal. Hemodynamically stable at time of discharge to inpatient rehab. Discharge Exam Gen: WD/WN, NAD, sitting in bedside chair, A&Ox3, anxious HEENT: Normocephalic, atraumatic, conjunctivae moist, sclerae anicteric, mucous membranes moist Lung: Clear to Auscultation bilaterally, no wheezes/rales/rhonchi Heart: Regular rate, regular rhythm, no murmurs, rubs, or gallops Abdomen: Soft, NT, ND +BS x 4 Extremities: + LLE with dressing, splint in place, c/d/i. Distally NVI Skin: Warm, no rash Updated Medication List Medication Instructions Recorded Confirmed Type CPAP Machine #1 ea 06/30/19 01/13/23 Rx ascorbic acid (vitamin C) 1,000 mg 1 g PO QAM 02/24/20 01/13/23 History tablet (Vitamin C) compr.stocking,knee,long,x-lrg #2 ea 05/10/20 01/13/23 Rx aspirin 81 mg tablet,delayed 81 mg PO DAILY 11/28/22 01/13/23 History release clonazepam 1 mg tablet 1 mg PO HS 11/28/22 01/13/23 History cyanocobalamin (vitamin B-12) 250 250 mcg PO DAILY 11/28/22 01/13/23 History mcg tablet (Vitamin B-12) escitalopram oxalate 10 mg tablet 10 mg PO DAILY 11/28/22 01/13/23 History furosemide 20 mg tablet (Lasix) 20 mg PO BID 11/28/22 01/13/23 History levothyroxine 112 mcg tablet 112 mcg PO DAILYBB 11/28/22 01/13/23 History losartan 25 mg tablet 25 mg PO DAILY 11/28/22 01/13/23 History meloxicam 7.5 mg tablet 7.5 mg PO QAM 11/28/22 01/13/23 History omega 1-ogy-tel-fish oil 1,000 mg 1 cap PO QAM 11/28/22 01/13/23 History (120 mg-180 mg) capsule (Fish Oil) oxybutynin chloride 5 mg 5 mg PO QAM 11/28/22 01/13/23 History tablet,extended release 24 hr vitamin E 268 mg (400 unit) capsule 268 mg PO DAILY 11/28/22 01/13/23 History rosuvastatin 10 mg tablet 10 mg PO DAILY 01/13/23 01/13/23 History oxycodone 5 mg tablet 2.5 mg PO Q6H PRN pain #6 tabs 01/18/23 Rx sennosides 8.6 mg-docusate sodium 1 tab PO QAM #10 tabs 01/18/23 Rx 50 mg tablet (Senokot-S) Hospital Stay Data Consultations 01/13/23 18:27 ED Decision to Admit Stat 01/13/23 18:38 Consult Orthopedic Surgery Routine Pending Results Patient Have Any Pending Studies at Discharge: No Discharge Instructions Given to Patient (Per Discharging Provider) MEDICATION CHANGES: Continue scheduled Tylenol and Oxy IR as needed for pain control. Holding oxybutynin for now 2/2 retention issues SUMMARY OF TEST RESULTS: You were admitted to hospital secondary to fall and found to have a closed fracture of left distal fibula on XR. Conservative management per ortho surgery with splinting and pain management. Continue scheduled Tylenol and Oxy IR as needed and discharging to acute rehab. PENDING TEST RESULTS: None RECOMMENDATIONS FOR FOLLOW-UP: Follow up with PCP as scheduled. Follow-up with orthopedics next week for removal of the trauma splint and placement in a cam walker boot, with nonoperative providers such as Dr. Manley or Dr. Tadeo( [phone]) Per ortho, touch toe weightbearing in the trauma splint. Continue with marquis catheter until able to reliably ambulate to bedside commode/restroom at rehab and then plan trial of void. OTHER INSTRUCTIONS: Seek medical attention if you have: * temperature above 101 * chest pain or trouble breathing * abdominal pain, nausea, vomiting * diarrhea, dark stools or bloody stools * any unanswered questions or concerns Call 911 if symptoms are severe. Please take good care of yourself. Call if you have any questions or problems. You can reach a [facility] hospitalist on duty at [facility] 24 hours a day by calling [phone]. Total Time Total Time Spent Total Time Spent (In Minutes): 50
== END 2023-01-18 16:40 | DRG 543 ==
LOC: ED 12:18 → 3E 18:38 → SUATTDRO 18:38 → 3E 21:01